=== PATIENT | female | born 1935 | race Caucasian/White ===

== ENCOUNTER → 2016-04-03 | Outpatient (CLI) | payer OTHER, BC ==
[~2016-04-03] VITALS: Ht 165.1 cm; Wt 78.4 kg
[~2016-04-03] MED LIST: ACCUPRIL PO; ACETAMINOPHEN325 M1 PO; ALLOPURINOL 30300 M2 PO; APAP500 PO; ATENOLOL 50 MG50 M1 PO; BENICAR HCT 401 EAC1 PO; BUPIVICAINE; CARDIZEM CD120 MG PO; COMPAZINE5 MG PO; DILAUDID IT; DILAUDID-H10 MG/1 M1; DROPERIDOL; DYAZIDE PO; ELIQUIS5 MG PO; HYDROCHLOROTH12.5 MG PO; HYDROCODONE-AP1 EAC6 PO; INTRATHECAL MED; LANOXIN 0.120.125 M1 PO; LASIX 40 MG TAB40 M1 PO; LASIX 40 MG TAB40 M2 PO; LASIX 80 MG TAB80 MG PO; LEVOTHYROXIN0.112 M1 PO; LIMBREL 500 MG500 MG PO; METOPROLOL SUCC50 MG PO; OMEPRAZOLE20 M2 PO; ONDANSETRON HCL4 M2 PO; ONDANSETRON HCL8 M2 PO; PACERONE 200 M200 M1 PO; POTASSIUM20 PO; PRADAXA150 MG PO; PREDNISONE 1 MG1 M1 PO; PREDNISONE 20 M20 M1 PO; PROPRANOLOL 20M20 M1 PO; PROPRANOLOL PO; PROTONIX 20 MG20 M1 PO; PROTONIX40 M2 PO; PROZAC 20 MG20 M1 PO; PROZAC 20 MG20 MG PO; RITALIN5 MG PO; SAVAYSA30 MG PO; SYNTHROID100 MCG PO; TIROSINT88 MCG PO; TRAMADOL 50 MG50 MG PO; UNICOMPLEX M TA1 TA1 PO; VITAMIN D 5050000 I1; VITAMIN D-32000 UNIT PO; VITAMIN D1000 UNI1 PO; VOLTAREN GEL 1100 G1 TOP; VOLTAREN GEL 1100 G2 TOP; XANAX 0.25 MG0.25 MG PO; XARELTO20 MG PO; XOPENEX HF1 UDINHALE IH; ZOFRAN8 MG PO
--- NOTE | ~2016-04-03 | HPC ---
[facility] [place] [address] [place] [address] PAIN MANAGEMENT CONSULTATION Name: RICHIE SANCHEZBETH Room #: REG EZEKIEL Elizabeth#: [id number] Admission: 04/03/16 Attend Phys: Russell Bartholomew MD Discharge: Date of : 33 Report #: [id number] THIS REPORT FOR: //name// CC: Regis Bartholomew DATE OF SERVICE: 04/03/2016 Followup visit for management of intrathecal pump for osteoarthritis of the low back, spondylosis, spinal stenosis with radiculopathy and complaints of osteoarthritis and pain in the right shoulder. The patient is here today for refill of intrathecal infusion pump and is requesting another injection of her shoulder, which has been helpful in the past. She reports that her primary pain generator remains her low back, but the shoulders become a quick second. She scores her pain as a 6/10. Pain in the low back is constant, deep and aching, generally worsened by movement. Pain in the right shoulder is exacerbated by all maneuvers, including internal and external rotation. Pain has been alleviated by her pain pump and she is pleased currently with her infusion. She has been unable to tolerate breakthrough medication, other than Tylenol. We briefly discussed the possible trial of tramadol. I even wrote a prescription, but decided against giving it to her because of her use of antidepressant. Serotonin syndrome is a concern. PHYSICAL EXAMINATION: GENERAL: Her affect is jules. Pleasant female. Does not appear depressed or anxious. VITAL SIGNS: Blood pressure 116/74, heart rate 82. BMI is 28.8. NEUROLOGIC: She is able to move independently from sitting to standing position, but complains of vertigo. This is worsened with head movements. She walks with a walker and is a bit unstable. I would call her a fall risk and she has been falling within the last 30 days. She has a bruise underneath her chin. CHEST: Clear. CARDIAC: Rhythm is regular. EXTREMITIES: Examination of the shoulder reveals pain with abduction and internal and external rotation on the right. Localized tenderness without swelling. BACK: Examination of the low back reveals tenderness across the lumbosacral segment. IMPRESSION: 1. Chronic low back pain, status post laminectomy, post-laminectomy syndrome with spinal stenosis and radiculopathy, mild. 2. Osteoarthritis, right shoulder. 3. Vertigo, severe with recent falls. 4. Management of intrathecal infusion pump with refill today. [facility] [address] [place] [address] PAIN MANAGEMENT CONSULTATION Name: RICHIE SANCHEZZABETH [facility] [id number] Admission: 04/03/16 Attend Phys: Russell Bartholomew MD Discharge: Date of : 34 Report #: [id number] 5. Blood thinner for atrial fibrillation. PROCEDURES: Refill of intrathecal infusion pump and injection of right shoulder. PROCEDURE #1: Skin was prepped with ChloraPrep. Skin anesthetized and a 22-gauge non-coring needle advanced in the pump. Old medication removed and discarded. Dose expected and retrieved was equivalent. Pump was refilled with a combination of 4 medications; hydromorphone, bupivacaine, clonidine and droperidol. This has been a long-standing combination which has worked well. Medications were checked and reprogramming session was performed, but no changes. She does not have a PTM device. She tolerated the procedure well. Programming information double checked and she was given a copy to take home. PROCEDURE #2: Injection of the right shoulder. Skin was prepped with ChloraPrep. Skin anesthetized and a 25-gauge needle gently advanced in the shoulder capsule. After negative aspiration, I injected 4 mL of 0.5% bupivacaine mixed with 40 mg of triamcinolone. She tolerated the procedure well, was observed for 30 minutes and discharged. There were no complications with either procedure. Followup visit planned for pump refill in 60 and 90 days. <ELECTRONICALLY SIGNED> By: Russell Bartholomew MD 05/04/16 1130 1219 1250 Russell Bartholomew MD /nt
[2016-04-03 11:14] VITALS: BP 116/74
== END | disposition home or self-care (01) ==
LOC: PAIN 04-01 06:48
DX: M48.06 Spinal stenosis, lumbar region (principal); M54.16 Radiculopathy, lumbar region; G89.29 Other chronic pain; M96.1 Postlaminectomy syndrome, not elsewhere classified; M19.011 Primary osteoarthritis, right shoulder; R42 Dizziness and giddiness; Z98.890 Other specified postprocedural states

== ENCOUNTER → 2016-04-10 | Outpatient (CLI) | payer OTHER, BC | LOC: NUC 08:15 | DX: R11.0 Nausea (principal) ==

== ENCOUNTER → 2016-07-25 | Outpatient (CLI) | payer OTHER, BC ==
[~2016-07-25] VITALS: Ht 152.4 cm; Wt 74.4 kg
[~2016-07-25] MED LIST changes: +ACYCLOVIR 400400 MG PO; +FAMCYCLOVIR 50500 M1 PO
--- NOTE | ~2016-07-25 | HPC ---
[facility] [place] [address] PAIN MANAGEMENT CONSULTATION Name: RICHIE SANCHEZBETH Room #: REG [facility] Elizabeth#: [id number] Admission: 07/25/16 Attend Phys: Russell Bartholomew MD Discharge: Date of : 34 Report #: [id number] THIS REPORT FOR: //name// CC: Regis Bartholomew DATE OF REGISTRATION: 07/25/2016. Followup visit for chronic low back pain, post-laminectomy syndrome. The patient is here today for refill of her intrathecal infusion pump. She reports that with her medications currently provided, her pain score is a 5/10. She has some pain in her low back and still complains about some pain around her intrathecal pump. Pain is intermittent for the most part. The patient has been sleeping well. Appetite is good. She and her still live independently in her own home. Since the last visit, she was hospitalized for pneumonia and gout. She was placed on a CPAP machine for a bit. She found that she could not tolerate it. PHYSICAL EXAMINATION: She is in a wheelchair. Blood pressure is 96/61, heart rate is 85. BMI is 32.0. She is able to move from a sitting to standing position, but it is difficult for her to move even short distances and she is a fall risk. Her shoulder bilaterally are tender with internal and external rotation primarily in the right, back is tender as well. She has an intrathecal pump located in the right lower abdominal quadrant. IMPRESSION: 1. Chronic intractable back pain status post laminectomy, post-laminectomy syndrome with radiculopathy secondary to spinal stenosis. 2. Osteoarthritis, right shoulder. 3. Management of intrathecal infusion pump with refill today. 4. Atrial fibrillation, on anticoagulation therapy. PROCEDURE: Refill of intrathecal infusion pump. Skin was prepped with ChloraPrep. Skin was anesthetized and a 22-gauge non-coring needle advanced in the pump. Old medication removed and discarded. Pump was refilled with a combination of hydromorphone, clonidine, droperidol and bupivacaine. A reprogramming session was performed and a copy of the information was provided to the patient. She is on 3.9 mg of Dilaudid, 3.1 mg of bupivacaine, 19 mcg of clonidine and 1.9 mcg of droperidol per day. [address] [address] PAIN MANAGEMENT CONSULTATION Name: RICHIE SANCHEZ Room #: REG Cl Johnson#: [id number] Admission: 07/25/16 Attend Phys: Russell Bartholomew MD Discharge: Date of : 34 Report #: [id number] Follow up is planned in 3 months. By: 1338 2041 Russell Bartholomew MD /nt
[2016-07-25 13:35] VITALS: BP 96/61
== END | disposition home or self-care (01) ==
LOC: PAIN 07:29
DX: M48.06 Spinal stenosis, lumbar region (principal); M96.1 Postlaminectomy syndrome, not elsewhere classified; M19.011 Primary osteoarthritis, right shoulder; I48.91 Unspecified atrial fibrillation; G89.29 Other chronic pain; Z98.890 Other specified postprocedural states

== ENCOUNTER → 2016-08-15 | Outpatient (CLI) | payer OTHER, BC ==
[~2016-08-15] VITALS: Ht 162.6 cm; Wt 74.8 kg
[~2016-08-15] MED LIST changes: +NEURONTIN 300300 M1 PO
--- NOTE | ~2016-08-15 | HPC ---
[facility] [place] [address] [place] [address] PAIN MANAGEMENT CONSULTATION Name: RICHIE SANCHEZ Room #: REG [facility] Cata.#: [id number] Admission: 08/15/16 Attend Phys: Russell Bartholomew MD Discharge: Date of : 34 Report #: [id number] THIS REPORT FOR: //name// CC: Regis Bartholomew DATE OF SERVICE: 08/15/2016 Followup visit for postherpetic neuralgia, chronic back pain with radiculopathy and osteoarthritis. The patient returns to pain clinic today and complains that the pain in her chest wall has worsened since I last saw her. She was diagnosed with acute shingles. There was a bit of a variant in that she did not have actual break out of vesicular rash, but clearly there was a unilateral dermatomal distribution of a diffuse rash along the right side, which is now her primary complaint. Pain is as high as 6-10 at night. She also has all of her other ongoing chronic aches and pains including post-laminectomy syndrome, osteoarthritis. She is receiving intrathecal infusion pump, which has helped with most of that. It is just not covering this neuropathic pain along her side despite bupivacaine, clonidine, hydromorphone and droperidol. She was on anticoagulation therapy for atrial fibrillation, but has discontinued it 5 days ago in anticipation of an injection. We plan to perform a thoracic epidural injection. PHYSICAL EXAMINATION: Her blood pressure is 96/45, heart rate is 96. She is able to move from sitting to standing position and ambulate without difficulty. She has orthostatic changes despite a low blood pressure. She has pain across her low back. Her pump is in her abdomen. She has tenderness along with scarring on her right side that follows a T10 through T12 distribution. Pain in the right shoulder is noted with internal and external rotation. On auscultation, her lungs are clear, but she is in atrial fibrillation with an irregularly irregular rhythm. IMPRESSION: 1. Chronic back pain, post-laminectomy. 2. Osteoarthritis. 3. Intrathecal infusion pump with reprogramming session today. I did not refill it, but dropped by 10% because of the clonidine and her low blood pressure. 4. Atrial fibrillation. 5. Postherpetic neuralgia. PROCEDURE: Thoracic epidural injection. [address] [address] PAIN MANAGEMENT CONSULTATION Name: RICHIE SANCHEZ Room #: REG [facility] Elizabeth#: [id number] Admission: 08/15/16 Attend Phys: Russell Bartholomew MD Discharge: Date of : 34 Report #: [id number] She was taken to fluoroscopic suite, she was placed prone, skin prepped with ChloraPrep. Skin anesthetized over T28 . A 20-gauge Tuohy epidural needle advanced into the epidural space at that level using biplanar fluoroscopic views. There was no blood or CSF aspirated. I then injected a total of 5 mL of 0.5% lidocaine mixed with 40 mg of triamcinolone. She tolerated the procedure well. Pain was reduced at discharge and she had numbness in the dermatomal distribution. Followup visit is planned as needed for pump refill. I did reduce her pump by 10% with a reprogramming session. By: 1654 0211 Russell Bartholomew MD /nt
[2016-08-15 10:00] VITALS: BP 85/45
== END | disposition home or self-care (01) ==
LOC: PAIN 06:59
DX: M54.14 Radiculopathy, thoracic region (principal); B02.29 Other postherpetic nervous system involvement; M19.90 Unspecified osteoarthritis, unspecified site; M96.1 Postlaminectomy syndrome, not elsewhere classified; I48.91 Unspecified atrial fibrillation

== ENCOUNTER → 2016-11-18 | Outpatient (CLI) | payer OTHER, BC ==
[~2016-11-18] VITALS: Ht 162.6 cm; Wt 78.4 kg
[~2016-11-18] MED LIST changes: +ULTRAM 50MG TAB50 MG PO
--- NOTE | ~2016-11-18 | HPC ---
[facility] [address] [address] PAIN MANAGEMENT CONSULTATION Name: RICHIE SANCHEZBETH Room #: REG Cl Johnson#: [id number] Admission: 11/18/16 Attend Phys: Russell Bartholomew MD Discharge: Date of : 34 Report #: [id number] THIS REPORT FOR: //name// CC: Regis Bartholomew DATE OF SERVICE: 11/18/2016 Followup visit for bilateral osteoarthritis of the shoulder, chronic back pain with radiculopathy and management of intrathecal infusion pump. The patient returns to pain clinic today for management of several pains. She complains of chronic back pain following her laminectomy. She has osteoarthritis involving many joints. She also has bilateral shoulder pain and suffered from a rash in the thoracic distribution, which was shingles. She was started early on antiviral therapy and now does not complain much of postherpetic neuralgia gratefully. She would like her pump refilled and adjusted today. I have agreed to do so and I have also agreed to provide her with bilateral shoulder injections, which have been helpful in the past. Her pain score today is an 8/10. She complains of pain in all locations described above. Her back pain is worse with all activities, particularly walking. She reports that she gets relief from her pain pump, sitting and resting and elevating her feet. She has had some new and increasing edema. She is on anticoagulation therapy for atrial fibrillation. PHYSICAL EXAMINATION: GENERAL: She is pleasant, elderly female. VITAL SIGNS: Blood pressure is 103/70, heart rate 85. NECK: Supple. She has some plaques that look like psoriasis posteriorly. CHEST: Clear. CARDIAC: Rhythm is irregularly irregular. ABDOMEN: Soft. Pump is in the right lower quadrant. EXTREMITIES: Some pain with straight leg raising of the leg and pain with internal and external rotation of the hip. Examination of the shoulders reveals bilateral pain and discomfort with internal and external rotation. IMPRESSION: 1. Chronic back pain, post-laminectomy. 2. Osteoarthritis, bilateral shoulders, hips and knees. 3. Atrial fibrillation. 4. History of recent shingles outbreak. 5. Reprogramming session of intrathecal infusion pump followed by bilateral shoulder injections. [facility] [address] [place] [address] PAIN MANAGEMENT CONSULTATION Name: RICHIE SANCHEZ JENS Room #: REG [facility] Elizabeth#: [id number] Admission: 11/18/16 Attend Phys: Russell Bartholomew MD Discharge: Date of : 34 Report #: [id number] PROCEDURE: Skin was prepped with ChloraPrep. Skin anesthetized and a 22-gauge non-coring needle advanced in the intrathecal pump. Old medication removed and discarded. Reprogramming session was performed increasing the pump by 11%, daily dose will now be hydromorphone 4 mg, bupivacaine 3.2 mg, clonidine 20 mcg and droperidol 1.9 mcg per day. INJECTION PROCEDURE: Bilateral shoulder injection. Skin was prepped first on the right. Posterior approach was used. I used 27-gauge needle, ____ given her anticoagulation state. I advanced the needle gently into the acromion process into the shoulder joint. After negative aspiration, I injected a total of 4 mL of 0.5% bupivacaine mixed with 40 mg of triamcinolone. Needle was removed. We then moved to the left where we performed a mirror image injection of the left shoulder. She tolerated the procedure well and left the clinic reporting that her shoulders felt great. A followup visit is scheduled in 3 months for refill. By: [id number] [id number] Russell Bartholomew MD /nt
[2016-11-18 13:58] VITALS: BP 103/70
== END | disposition home or self-care (01) ==
LOC: PAIN 07:12
DX: M19.011 Primary osteoarthritis, right shoulder (principal); M19.012 Primary osteoarthritis, left shoulder; M54.5 Low back pain; G89.29 Other chronic pain; M17.0 Bilateral primary osteoarthritis of knee; M16.0 Bilateral primary osteoarthritis of hip; I48.91 Unspecified atrial fibrillation; Z79.01 Long term (current) use of anticoagulants; Z88.0 Allergy status to penicillin; Z98.890 Other specified postprocedural states; Z79.899 Other long term (current) drug therapy

== ENCOUNTER → 2016-12-18 | Outpatient (CLI) | payer OTHER, BC | LOC: RAD 01:37 | DX: Z12.31 Encounter for screening mammogram for malignant neoplasm of breast (principal) ==

== ENCOUNTER → 2017-01-02 | Outpatient (CLI) | payer OTHER, BC | LOC: SLEEPLAB 03:38 | DX: G47.33 Obstructive sleep apnea (adult) (pediatric) (principal) ==

== ENCOUNTER 2017-04-22 05:15 | Day surgery (SDC) | payer OTHER, BC ==
[~2017-04-22] VITALS: Ht 152.4 cm; Wt 79.8 kg
--- NOTE | ~2017-04-22 | S ---
[facility] [place] [address] [address] SURGICAL PATH RPT PROCEDURE Name: RICHIE SANCHEZ Room #: [facility]..#: [id number] Admission: 04/22/17 Date of : 33 Discharge: 04/22/17 Report #: [id number] Path Case #: [id number] PATHOLOGY REPORT COLLECTION DATE: 04/22/2017 RECEIVED DATE: 04/22/2017 SUBMITTING PHYS: Dr. Landon Leon OTHER PHYS: Dr. Regis Wells SPECIMEN(S) RECEIVED: A.2nd right toe * * * * * * * * * * * * FINAL DIAGNOSIS: Toe, right second toe, resection: - Ulceration along with marked acute inflammation as well as granulation tissue present focally. Clinical history of hammertoe. - Underlying bone uninvolved by acute inflammation. - Margins of resection with unremarkable skin and bone. (IUV:mml; 04/25/2017) PATHOLOGIST: Jane Ko M.D. REPORT ELECTRONICALLY SIGNED BY: Jane Ko M.D. DATE/TIME: 04/25/2017 12:12 * * * * * * * * * * * * GROSS PATHOLOGY: The specimen is received in formalin, labeled "Richie Sanchez, right second toe". Received is an amputated digit measuring 3.6 x 1.8 x 1.5 cm in greatest dimensions. The bone margin is jagged in appearance. The bone and soft tissue margins are inked black. The nail is present displaying a light hercules and thickened appearance. The epidermal surface displays a well-circumscribed, depressed, and red-hercules lesion measuring 0.7 x 0.6 cm, which is 0.2 cm from the skin margin. A full-thickness longitudinal cross-section is submitted in cassettes A1 and A2, from proximal to distal aspects, following decalcification. (CAA; 04/24/2017) CLINICAL HISTORY: Right second toe hammertoe INITIAL CPT CODE(S): A; 84676, 00073 [facility] at [address] [address] SURGICAL PATH RPT PROCEDURE Name: RICHIE SANCHEZ Room #: [facility] M.R.#: [id number] Admission: 04/22/17 Date of : 34 Discharge: 04/22/17 Report #: [id number] Path Case #: [id number] [address] [place] [address] Technical services performed by [employer] at [address] [place] [address], [facility] [address] [address]. [facility] [address] [address] PHONE: [phone] DIRECTOR: Renny Callahan M.D. * * * END OF REPORT * * *
--- NOTE | ~2017-04-22 | O ---
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 POSTOPERATIVE DIAGNOSIS: Right foot second hammer toe deformity with nonhealing wound. PROCEDURE: Right foot second toe amputation. SURGEON: Landon Leon M.D. ANESTHESIA: Local. FOREIGN CAR MECHANIC: Thi Fuentes PA-C ESTIMATED BLOOD LOSS: Minimal. DRAINS: None. TOURNIQUETS: None. COMPLICATIONS: None. DESCRIPTION OF PROCEDURE: The patient brought to the operating room where her right lower extremity was prepped and draped in a sterile manner. A 30 mL of 0.5% Marcaine was insufflated about the second metatarsal to anesthetize the digital nerves. This was allowed to set and then subsequently a fishmouth incision was made about the proximal phalanx of the second toe. A Romeo elevator was then utilized to elevate the soft tissue off of the toe and a toe cutter was then utilized to transect the proximal phalanx of the second toe. The toe was then removed. The wound was irrigated copiously and closed with 3-0 nylon for the skin. The wound was dressed with Xeroform, 4 x 4s, and a sterile soft compressive dressing was placed. There were no tourniquets. There were no complications. The patient was taken to the recovery room without incident. <ELECTRONICALLY SIGNED> By: Landon Leon MD 05/07/17 1028 1229 1309 Landon Leon MD /nt
[~2017-04-22 05:15] MED LIST changes: -ALLOPURINOL 30300 M2 PO; -APAP500 PO; +KLOR-CON 1010 MEQ PO; +TYLENOL EXTRA500 MG PO; +ZYLOPRIM300 MG PO
[2017-04-22 11:12] VITALS: BP 105/71
[2017-04-22 11:41] LABS: CALCIUM 9.5 mg/dL (8.5-10.1); CREATININE 1.8 mg/dL (0.6-1.0); POTASSIUM 4.3 mmol/L (3.5-5.1)
[2017-04-22] MEDS ORDERED: PERCOCET 7.5-31 EACH PO (12:23)
[2017-04-22 12:53] VITALS: BP 105/71
[2017-06-12] MEDS ORDERED: ONDANSETRON HCL4 M2 PO (15:36)
[2017-06-12] MEDS ORDERED: INDERAL 20 MG T20 M1 PO (15:54)
[2017-12-22] MEDS ORDERED: LOPRESSOR50 PO (11:08)
[2018-01-08] MEDS ORDERED: DIGOXIN125 MCG PO (08:56)
[2018-01-08] MEDS ORDERED: ALLOPURINOL 30300 M1 PO (08:59)
[2018-01-08] MEDS ORDERED: IRON325 PO (08:59)
== END 2017-04-22 13:55 | disposition home or self-care (01) ==
LOC: OR 05:15 → TBA 05:16 → OR 08:58
PROVIDERS: Orthopaedic Surgery Foot and Ankle Surgery
DX: L97.919 Non-pressure chronic ulcer of unspecified part of right lower leg with unspecified severity (principal); M20.41 Other hammer toe(s) (acquired), right foot; I10 Essential (primary) hypertension; I48.91 Unspecified atrial fibrillation; E78.5 Hyperlipidemia, unspecified; G47.33 Obstructive sleep apnea (adult) (pediatric); F32.89 Other specified depressive episodes; K21.9 Gastro-esophageal reflux disease without esophagitis; E03.9 Hypothyroidism, unspecified; F41.8 Other specified anxiety disorders; Z96.653 Presence of artificial knee joint, bilateral; Z88.0 Allergy status to penicillin; Z98.41 Cataract extraction status, right eye; Z98.42 Cataract extraction status, left eye; Z98.890 Other specified postprocedural states; Z79.899 Other long term (current) drug therapy; Z79.891 Long term (current) use of opiate analgesic
CPT/HCPCS: 50010; 50101; 50386; 56527; 57091; 70005

== ENCOUNTER → 2017-05-15 | Outpatient (CLI) | payer OTHER, BC ==
[~2017-05-15] MED LIST changes: +ALLOPURINOL 30300 M1 PO; +DIGOXIN125 MCG PO; +DUONEB 2.5-0.5 M3 ML INH; +EPOGEN20000 UNI2 SUBQ; +HYDROCODON-ACE1 EAC7 PO; +INDERAL 20 MG T20 M1 PO; +IRON325 PO; +LOPRESSOR50 PO; +MAGOX 400400 MG PO; +METOPROLOL TART25 MG PO; +PERCOCET 7.5-31 EACH PO
== END ==
LOC: HYPER 05-14 09:21
DX: T81.89XD Other complications of procedures, not elsewhere classified, subsequent encounter (principal); E11.621 Type 2 diabetes mellitus with foot ulcer; I87.2 Venous insufficiency (chronic) (peripheral); L97.511 Non-pressure chronic ulcer of other part of right foot limited to breakdown of skin; E11.51 Type 2 diabetes mellitus with diabetic peripheral angiopathy without gangrene; E66.9 Obesity, unspecified; Z68.33 Body mass index [BMI] 33.0-33.9, adult; E11.22 Type 2 diabetes mellitus with diabetic chronic kidney disease; I12.9 Hypertensive chronic kidney disease with stage 1 through stage 4 chronic kidney disease, or unspecified chronic kidney disease; N18.3 Chronic kidney disease, stage 3 (moderate); I48.91 Unspecified atrial fibrillation; E03.9 Hypothyroidism, unspecified; E11.42 Type 2 diabetes mellitus with diabetic polyneuropathy; Z85.3 Personal history of malignant neoplasm of breast; Z89.422 Acquired absence of other left toe(s); Z89.421 Acquired absence of other right toe(s); Z72.89 Other problems related to lifestyle; Y83.8 Other surgical procedures as the cause of abnormal reaction of the patient, or of later complication, without mention of misadventure at the time of the procedure

== ENCOUNTER → 2017-05-26 | Outpatient (CLI) | payer OTHER, BC | LOC: HYPER 07:14 | DX: T81.89XD Other complications of procedures, not elsewhere classified, subsequent encounter (principal); E11.621 Type 2 diabetes mellitus with foot ulcer; I87.2 Venous insufficiency (chronic) (peripheral); L97.511 Non-pressure chronic ulcer of other part of right foot limited to breakdown of skin; E11.51 Type 2 diabetes mellitus with diabetic peripheral angiopathy without gangrene; J44.9 Chronic obstructive pulmonary disease, unspecified; E66.9 Obesity, unspecified; Z68.33 Body mass index [BMI] 33.0-33.9, adult; E11.22 Type 2 diabetes mellitus with diabetic chronic kidney disease; I12.9 Hypertensive chronic kidney disease with stage 1 through stage 4 chronic kidney disease, or unspecified chronic kidney disease; N18.3 Chronic kidney disease, stage 3 (moderate); I48.91 Unspecified atrial fibrillation; M81.0 Age-related osteoporosis without current pathological fracture; E03.9 Hypothyroidism, unspecified; E11.42 Type 2 diabetes mellitus with diabetic polyneuropathy; Z85.3 Personal history of malignant neoplasm of breast; Z72.89 Other problems related to lifestyle; Y83.8 Other surgical procedures as the cause of abnormal reaction of the patient, or of later complication, without mention of misadventure at the time of the procedure ==

== ENCOUNTER → 2017-06-05 | Outpatient (CLI) | payer OTHER, BC | LOC: HYPER 06:59 | DX: E11.621 Type 2 diabetes mellitus with foot ulcer (principal); L97.511 Non-pressure chronic ulcer of other part of right foot limited to breakdown of skin; I87.2 Venous insufficiency (chronic) (peripheral); E11.51 Type 2 diabetes mellitus with diabetic peripheral angiopathy without gangrene; E66.9 Obesity, unspecified; Z68.33 Body mass index [BMI] 33.0-33.9, adult; M80.0 Age-related osteoporosis with current pathological fracture; J44.9 Chronic obstructive pulmonary disease, unspecified; E11.22 Type 2 diabetes mellitus with diabetic chronic kidney disease; N18.3 Chronic kidney disease, stage 3 (moderate); I48.91 Unspecified atrial fibrillation; I10 Essential (primary) hypertension; E03.9 Hypothyroidism, unspecified; E11.42 Type 2 diabetes mellitus with diabetic polyneuropathy; Z85.3 Personal history of malignant neoplasm of breast; Z72.89 Other problems related to lifestyle ==

== ENCOUNTER → 2017-06-19 | Outpatient (CLI) | payer OTHER, BC | LOC: HYPER 07:22 | DX: E11.621 Type 2 diabetes mellitus with foot ulcer (principal); L97.511 Non-pressure chronic ulcer of other part of right foot limited to breakdown of skin; E11.622 Type 2 diabetes mellitus with other skin ulcer; L97.811 Non-pressure chronic ulcer of other part of right lower leg limited to breakdown of skin; I87.2 Venous insufficiency (chronic) (peripheral); E11.51 Type 2 diabetes mellitus with diabetic peripheral angiopathy without gangrene; E66.9 Obesity, unspecified; Z68.33 Body mass index [BMI] 33.0-33.9, adult; J44.9 Chronic obstructive pulmonary disease, unspecified; E11.22 Type 2 diabetes mellitus with diabetic chronic kidney disease; I12.9 Hypertensive chronic kidney disease with stage 1 through stage 4 chronic kidney disease, or unspecified chronic kidney disease; N18.3 Chronic kidney disease, stage 3 (moderate); I48.91 Unspecified atrial fibrillation; E03.9 Hypothyroidism, unspecified; E11.42 Type 2 diabetes mellitus with diabetic polyneuropathy; Z85.3 Personal history of malignant neoplasm of breast ==

== ENCOUNTER → 2017-07-03 | Outpatient (CLI) | payer OTHER, BC ==
[~2017-07-03] MED LIST changes: -ALLOPURINOL 30300 M1 PO; -DIGOXIN125 MCG PO; -DUONEB 2.5-0.5 M3 ML INH; -EPOGEN20000 UNI2 SUBQ; -HYDROCODON-ACE1 EAC7 PO; -IRON325 PO; -LOPRESSOR50 PO; -MAGOX 400400 MG PO; -METOPROLOL TART25 MG PO
== END ==
LOC: HYPER 06:55
DX: E11.621 Type 2 diabetes mellitus with foot ulcer (principal); L97.811 Non-pressure chronic ulcer of other part of right lower leg limited to breakdown of skin; E11.51 Type 2 diabetes mellitus with diabetic peripheral angiopathy without gangrene; I87.2 Venous insufficiency (chronic) (peripheral); E11.22 Type 2 diabetes mellitus with diabetic chronic kidney disease; I12.9 Hypertensive chronic kidney disease with stage 1 through stage 4 chronic kidney disease, or unspecified chronic kidney disease; N18.3 Chronic kidney disease, stage 3 (moderate); E11.42 Type 2 diabetes mellitus with diabetic polyneuropathy; E66.9 Obesity, unspecified; I48.91 Unspecified atrial fibrillation; E03.9 Hypothyroidism, unspecified; M81.0 Age-related osteoporosis without current pathological fracture; G47.30 Sleep apnea, unspecified; J44.9 Chronic obstructive pulmonary disease, unspecified; Z85.3 Personal history of malignant neoplasm of breast; Z96.653 Presence of artificial knee joint, bilateral

== ENCOUNTER → 2017-07-17 | Outpatient (CLI) | payer OTHER, BC | LOC: HYPER 06:44 | DX: E11.621 Type 2 diabetes mellitus with foot ulcer (principal); L97.511 Non-pressure chronic ulcer of other part of right foot limited to breakdown of skin; E11.622 Type 2 diabetes mellitus with other skin ulcer; L97.811 Non-pressure chronic ulcer of other part of right lower leg limited to breakdown of skin; E11.51 Type 2 diabetes mellitus with diabetic peripheral angiopathy without gangrene; E11.42 Type 2 diabetes mellitus with diabetic polyneuropathy; E11.22 Type 2 diabetes mellitus with diabetic chronic kidney disease; I12.9 Hypertensive chronic kidney disease with stage 1 through stage 4 chronic kidney disease, or unspecified chronic kidney disease; N18.3 Chronic kidney disease, stage 3 (moderate); I87.2 Venous insufficiency (chronic) (peripheral); L84 Corns and callosities; E03.9 Hypothyroidism, unspecified; E66.9 Obesity, unspecified; M80.0 Age-related osteoporosis with current pathological fracture; I48.91 Unspecified atrial fibrillation; G47.30 Sleep apnea, unspecified; J44.9 Chronic obstructive pulmonary disease, unspecified; Z85.3 Personal history of malignant neoplasm of breast; Z96.653 Presence of artificial knee joint, bilateral; Z89.422 Acquired absence of other left toe(s); Z68.33 Body mass index [BMI] 33.0-33.9, adult; Z89.421 Acquired absence of other right toe(s) ==

== ENCOUNTER → 2017-07-30 | Outpatient (CLI) | payer OTHER, BC | LOC: HYPER 06:51 | DX: E11.621 Type 2 diabetes mellitus with foot ulcer (principal); L97.511 Non-pressure chronic ulcer of other part of right foot limited to breakdown of skin; I87.2 Venous insufficiency (chronic) (peripheral); E11.51 Type 2 diabetes mellitus with diabetic peripheral angiopathy without gangrene; J44.9 Chronic obstructive pulmonary disease, unspecified; E11.22 Type 2 diabetes mellitus with diabetic chronic kidney disease; I12.9 Hypertensive chronic kidney disease with stage 1 through stage 4 chronic kidney disease, or unspecified chronic kidney disease; N18.3 Chronic kidney disease, stage 3 (moderate); I48.91 Unspecified atrial fibrillation; E03.9 Hypothyroidism, unspecified; E11.42 Type 2 diabetes mellitus with diabetic polyneuropathy; E66.9 Obesity, unspecified; Z68.33 Body mass index [BMI] 33.0-33.9, adult; Z85.3 Personal history of malignant neoplasm of breast; Z89.421 Acquired absence of other right toe(s) ==

== ENCOUNTER 2017-08-20 14:56 | Emergency (ER) | payer OTHER, BC ==
[~2017-08-20] VITALS: Ht 152.4 cm; Wt 77.1 kg
--- NOTE | ~2017-08-20 | EKG ---
[address] [address] ELECTROCARDIOGRAM REPORT Name: LAURARICHIE JENS Room #: [facility] [id number] Admission: 08/20/17 Attend Phys: Discharge: 08/20/17 Date of : 34 Report #: [id number] THIS REPORT FOR: //name// [facility] ED Test Date: 2017-08-20 Test Time: 15:14:37 Pat Name: RICHIE SANCHEZ Department: Room: Gender: F Combat Control Manager: WG : 1935 Requested By: Brett Fajardo Order Number: [id number] MD: Christiano Landers Measurements Intervals [place] Rate: 98 P: MD: QRS: 91 QRSD: 94 T: 6 QT: 339 QTc: 433 Interpretive Statements Atrial fibrillation Right axis deviation Compared to ECG 07/18/2006 10:51:38 Atrial fibrillation is now present Electronically Signed On 08-21-2017 8:20:54 CDT by Christiano Landers [email or web address] <ELECTRONICALLY SIGNED> By: Christiano Landers MD, [facility] 08/21/17 0820 1514 1514 Christiano Landers MD, FACC /EPI
[2017-08-20] MEDS ORDERED: EPOGEN20000 UNI2 SUBQ (15:15)
[2017-08-20] MEDS ORDERED: HYDROCODON-ACE1 EAC7 PO (15:16)
[2017-08-20] MEDS ORDERED: DUONEB 2.5-0.5 M3 ML INH (15:20)
[2017-08-20] MEDS ORDERED: MAGOX 400400 MG PO (15:20)
[2017-08-20 15:37] LABS: ABSOLUTE NEUTROPHILS 11.7 thou/uL (1.4-8.2); BASOPHILS 0.5 % (0.0-2.0); HEMATOCRIT 35.6 % (37.0-47.0); LYMPHOCYTES 10.1 % (24.0-44.0); MCH 26.2 pg (26.0-34.0); MCV 84.5 fL (80.0-100.0); MONOCYTES 7.8 % (1.0-8.0); PLATELET COUNT 446 thou/uL (150-400); POLYS 78.6 % (36.0-66.0); RBC 4.21 mil/uL (4.20-5.00); RDW 18.4 % (10.5-14.5); WBC 14.9 thou/uL (4.0-11.0)
[2017-08-20 15:47] LABS: ANION GAP 3 mmol/L (7-16); BUN 28 mg/dL (7-18); CALCIUM 9.2 mg/dL (8.5-10.1); CHLORIDE 99 mmol/L (98-107); CO2 35 mmol/L (21-32); CREATININE 1.4 mg/dL (0.6-1.0); GLUCOSE 139 mg/dL (74-106); POTASSIUM 4.3 mmol/L (3.5-5.1); SODIUM 137 mmol/L (136-145)
[2017-08-20 15:55] LABS: ALBUMIN 2.5 g/dL (3.4-5.0); MAGNESIUM 1.5 mg/dL (1.8-2.4); SGOT 23 U/L (15-37); SGPT 7 U/L (30-65); TOTAL BILIRUBIN 0.7 mg/dL (<0.1-1.0); TOTAL PROTEIN 6.7 g/dL (6.4-8.2); TROPONIN-I < 0.04 ng/mL (<0.06)
[2017-08-20] MEDS ORDERED: DIGOXIN125 MCG PO (16:33)
[2017-08-20] MEDS ORDERED: METOPROLOL TART25 MG PO (16:33)
== END 2017-08-20 17:38 | disposition home or self-care (01) ==
LOC: ER 14:56
PROVIDERS: Emergency Medicine
DX: I48.91 Unspecified atrial fibrillation (principal); E03.9 Hypothyroidism, unspecified; I10 Essential (primary) hypertension; E78.5 Hyperlipidemia, unspecified; K21.9 Gastro-esophageal reflux disease without esophagitis; F41.9 Anxiety disorder, unspecified; F32.9 Major depressive disorder, single episode, unspecified; Z96.653 Presence of artificial knee joint, bilateral; Z88.0 Allergy status to penicillin

== ENCOUNTER → 2017-10-27 | Outpatient (CLI) | payer OTHER, BC ==
[~2017-10-27] MED LIST changes: +DIGOXIN125 MCG PO; +DUONEB 2.5-0.5 M3 ML INH; +EPOGEN20000 UNI2 SUBQ; +HYDROCODON-ACE1 EAC7 PO; +MAGOX 400400 MG PO; +METOPROLOL TART25 MG PO
== END ==
LOC: HYPER 06:42
DX: E11.621 Type 2 diabetes mellitus with foot ulcer (principal); L97.511 Non-pressure chronic ulcer of other part of right foot limited to breakdown of skin; E11.622 Type 2 diabetes mellitus with other skin ulcer; L97.811 Non-pressure chronic ulcer of other part of right lower leg limited to breakdown of skin; I87.2 Venous insufficiency (chronic) (peripheral); E11.51 Type 2 diabetes mellitus with diabetic peripheral angiopathy without gangrene; E11.22 Type 2 diabetes mellitus with diabetic chronic kidney disease; I12.9 Hypertensive chronic kidney disease with stage 1 through stage 4 chronic kidney disease, or unspecified chronic kidney disease; N18.3 Chronic kidney disease, stage 3 (moderate); E11.42 Type 2 diabetes mellitus with diabetic polyneuropathy; M80.0 Age-related osteoporosis with current pathological fracture; E66.9 Obesity, unspecified; L84 Corns and callosities; E03.9 Hypothyroidism, unspecified; I48.91 Unspecified atrial fibrillation; M10.9 Gout, unspecified; G47.30 Sleep apnea, unspecified; J44.9 Chronic obstructive pulmonary disease, unspecified; F41.9 Anxiety disorder, unspecified; Z96.653 Presence of artificial knee joint, bilateral; Z68.33 Body mass index [BMI] 33.0-33.9, adult; Z85.3 Personal history of malignant neoplasm of breast; Z98.49 Cataract extraction status, unspecified eye; Z89.421 Acquired absence of other right toe(s)

== ENCOUNTER → 2017-12-22 | Outpatient (CLI) | payer OTHER, BC ==
[~2017-12-22] VITALS: Ht 152.4 cm; Wt 68.6 kg
[~2017-12-22] MED LIST changes: +ALLOPURINOL 30300 M1 PO; +IRON325 PO; +LOPRESSOR50 PO
--- NOTE | ~2017-12-22 | HPC ---
[facility] [place] [address] [place] [address] PAIN MANAGEMENT CONSULTATION Name: RICHIE SANCHEZ [facility] [id number] Admission: 12/22/17 Attend Phys: Russell Bartholomew MD Discharge: Date of : 34 Report #: [id number] THIS REPORT FOR: //name// CC: Regis Bartholomew DATE OF SERVICE: 12/22/2017 REASON FOR CONSULTATION: Followup visit for refill reprogramming of intrathecal infusion pump. HISTORY OF PRESENT ILLNESS: The patient returns to pain clinic today for refill of intrathecal infusion pump. Earlier this year, she underwent refill and was found to have excessive sedation in the first hour or two following the refill and may have an escape of about 2.5 mL pump medication or pocket fill. Program error was ruled out. She was observed in the hospital during that event overnight and sent home with no sequelae. Pocket fills do occur and they are infrequent, but we reviewed again the protocol for management of such an event and discussed this with her family. Dr. Regis Wells is aware of this, her primary care physician. Today, no specific changes will be intended for intrathecal pump. She has a combination of bupivacaine, clonidine, droperidol and hydromorphone, which has been working effectively. Pain score is 2. PQRS review is completed today prior to refilling her pump. She has generalized osteoarthritis involving multiple joints. She is just under the level of obesity at 29.5 BMI. PHYSICAL EXAMINATION: VITAL SIGNS: Blood pressure 101/64, heart rate is 86, respirations 20. Pain intensity with her pump currently is 2. She is a fall risk and needs help getting up and down and walking. She has fallen in the last 3 months. She needs to be particularly cautious given the fact that she is on the blood thinner, Savaysa, she has a history of hypertension, which Dr. Wells watches carefully and manages with medication. Risk assessment tool shows that she has some features causing a moderate risk for misuse or abuse of oral medication. She has shown no misuse or abusive behaviors with medication through our clinic and does not take oral opioids. She does not use tobacco, but does drink alcohol socially. IMPRESSION: 1. Chronic low back pain with radiculopathy, post-laminectomy syndrome. 2. Osteoarthritis. [address] [address] PAIN MANAGEMENT CONSULTATION Name: LAURARICHIE Room #: REG [facility].#: [id number] Admission: 12/22/17 Attend Phys: Russell Bartholomew MD Discharge: Date of : 34 Report #: [id number] 3. Management of intrathecal infusion pump. 4. Atrial fibrillation, on blood thinner. 5. Hypertension. PROCEDURE: Refill and reprogramming. I personally performed the refill. The skin was prepped with ChloraPrep. Skin was anesthetized and 22-gauge non-coring needle advanced in the pump. Old medication removed and discarded. Pump was refilled with medication and after some discussion, I did agree to provide her with a slight increase in her pump at 5%. Her discharge will be at a dose of hydromorphone 4.2, bupivacaine 3.3, clonidine 20 mcg and droperidol 2 mcg per day. Her TONY is 37. Her next refill is scheduled for 04/05/2018. She would like an epidural steroid injection. We will see how she does with a slight refill and bring her back in the next week or two for an injection, which has provided some relief for her for several months at a time in the past. By: 1741 0757 Russell Bartholomew MD /nt
[2017-12-22 10:52] VITALS: BP 101/64
== END | disposition home or self-care (01) ==
LOC: PAIN 07:36
DX: Z45.1 Encounter for adjustment and management of infusion pump (principal); M54.16 Radiculopathy, lumbar region; G89.29 Other chronic pain; M96.1 Postlaminectomy syndrome, not elsewhere classified; M19.90 Unspecified osteoarthritis, unspecified site; I48.91 Unspecified atrial fibrillation; I10 Essential (primary) hypertension; Z79.01 Long term (current) use of anticoagulants; Z79.899 Other long term (current) drug therapy; Z98.890 Other specified postprocedural states; Z79.891 Long term (current) use of opiate analgesic

== ENCOUNTER → 2018-01-08 | Outpatient (CLI) | payer OTHER, BC ==
[~2018-01-08] VITALS: Ht 160 cm; Wt 67.6 kg
--- NOTE | ~2018-01-08 | HPC ---
[facility] [place] [address] [place] [address] PAIN MANAGEMENT CONSULTATION Name: RICHIE SANCHEZ [facility] [id number] Admission: 01/08/18 Attend Phys: Russell Bartholomew MD Discharge: Date of : 33 Report #: [id number] THIS REPORT FOR: //name// CC: Regis Bartholomew DATE OF SERVICE: 01/08/2018 Followup visit for chronic back pain. The patient is here today in the pain clinic for an epidural injection. We have elected to try an epidural for her flank pain which radiates in a band-like pattern from her L1-L2 region around the ribcage and into the upper hip. She is already on a fairly complex polypharmacy intrathecal regimen, which we have maximized at best relief. We would like to avoid the addition of any additional oral opioids at this time. She was recently seen on 12/22/2017. Her PQRS review is completed and unchanged from that visit. PHYSICAL EXAMINATION: This is a pleasant female with marked rightwards convexity scoliotic change. The pain is noted along the left ribcage and radiating along the costal margin into the upper left hip and towards the groin. There is tenderness across the lumbosacral segment. There is a scar from previous intrathecal catheter placement. There is mild straight leg raising discomfort and tightness noted in both legs. She has osteoarthritis noted with hips and knees, localized tenderness. IMPRESSION: 1. Chronic low back pain with radiculopathy, post-laminectomy syndrome. 2. Diffuse osteoarthritis. 3. Intrathecal pump management. She is not ready for refill today. 4. Atrial fibrillation, on blood thinner, which has been discontinued in anticipation of her injection today. PROCEDURE: Lumbar epidural injection L2-L3 under fluoroscopic guidance. She was taken to fluoroscopic suite where she was placed prone, skin prepped with ChloraPrep. Skin anesthetized over the L2-L3 interspace. A 20-gauge Tuohy epidural needle was advanced in the epidural space with loss of resistance technique. There was no blood or CSF aspirated. 1 mL of Omnipaque was injected. Good spread of dye observed into the epidural space, was followed by 3 mL of 0.5% lidocaine mixed with 80 mg of triamcinolone. She tolerated the procedure well. [address] [address] PAIN MANAGEMENT CONSULTATION Name: SANCHEZRICHIE Room #: REG [facility].#: [id number] Admission: 01/08/18 Attend Phys: Russell Bartholomew MD Discharge: Date of : 34 Report #: [id number] Pain intensity was reduced to 0 at discharge. She was able to ambulate by her own accord and discharged. We will follow up and evaluate the response to this treatment at next pump refill. No new medications were ordered. She was instructed to restart her blood thinner, Savaysa, this evening. <ELECTRONICALLY SIGNED> By: Russell Bartholomew MD 01/09/18 1312 1608 0030 Russell Bartholomew MD /narda
[2018-01-08 08:48] VITALS: BP 97/60
== END | disposition home or self-care (01) ==
LOC: PAIN 06:59
DX: M54.16 Radiculopathy, lumbar region (principal); G89.29 Other chronic pain; M96.1 Postlaminectomy syndrome, not elsewhere classified; M19.90 Unspecified osteoarthritis, unspecified site; I48.91 Unspecified atrial fibrillation; Z79.01 Long term (current) use of anticoagulants; Z79.899 Other long term (current) drug therapy; Z98.890 Other specified postprocedural states; Z88.0 Allergy status to penicillin; Z79.891 Long term (current) use of opiate analgesic

== ENCOUNTER → 2018-03-02 | Outpatient (CLI) | payer OTHER, BC | LOC: HYPER 07:11 | DX: E11.621 Type 2 diabetes mellitus with foot ulcer (principal); L97.411 Non-pressure chronic ulcer of right heel and midfoot limited to breakdown of skin; L97.521 Non-pressure chronic ulcer of other part of left foot limited to breakdown of skin; E11.622 Type 2 diabetes mellitus with other skin ulcer; L97.811 Non-pressure chronic ulcer of other part of right lower leg limited to breakdown of skin; E11.51 Type 2 diabetes mellitus with diabetic peripheral angiopathy without gangrene; E11.42 Type 2 diabetes mellitus with diabetic polyneuropathy; E11.22 Type 2 diabetes mellitus with diabetic chronic kidney disease; I12.9 Hypertensive chronic kidney disease with stage 1 through stage 4 chronic kidney disease, or unspecified chronic kidney disease; N18.3 Chronic kidney disease, stage 3 (moderate); E66.9 Obesity, unspecified; G47.30 Sleep apnea, unspecified; I27.20 Pulmonary hypertension, unspecified; I87.2 Venous insufficiency (chronic) (peripheral); I48.91 Unspecified atrial fibrillation; J44.9 Chronic obstructive pulmonary disease, unspecified; M81.0 Age-related osteoporosis without current pathological fracture; M10.9 Gout, unspecified; F41.9 Anxiety disorder, unspecified; Z68.33 Body mass index [BMI] 33.0-33.9, adult; Z85.3 Personal history of malignant neoplasm of breast; Z96.653 Presence of artificial knee joint, bilateral ==

== ENCOUNTER → 2018-03-31 | Outpatient (CLI) | payer OTHER, BC | LOC: HYPER 06:48 | DX: E11.621 Type 2 diabetes mellitus with foot ulcer (principal); L97.412 Non-pressure chronic ulcer of right heel and midfoot with fat layer exposed; L97.521 Non-pressure chronic ulcer of other part of left foot limited to breakdown of skin; S91.312A Laceration without foreign body, left foot, initial encounter; E11.42 Type 2 diabetes mellitus with diabetic polyneuropathy; E11.51 Type 2 diabetes mellitus with diabetic peripheral angiopathy without gangrene; E11.22 Type 2 diabetes mellitus with diabetic chronic kidney disease; I12.9 Hypertensive chronic kidney disease with stage 1 through stage 4 chronic kidney disease, or unspecified chronic kidney disease; N18.3 Chronic kidney disease, stage 3 (moderate); E66.9 Obesity, unspecified; E03.9 Hypothyroidism, unspecified; G47.30 Sleep apnea, unspecified; I87.2 Venous insufficiency (chronic) (peripheral); I48.91 Unspecified atrial fibrillation; I27.20 Pulmonary hypertension, unspecified; J44.9 Chronic obstructive pulmonary disease, unspecified; M81.0 Age-related osteoporosis without current pathological fracture; M10.9 Gout, unspecified; F41.9 Anxiety disorder, unspecified; Z85.3 Personal history of malignant neoplasm of breast; Z85.038 Personal history of other malignant neoplasm of large intestine; Z68.33 Body mass index [BMI] 33.0-33.9, adult; Z96.653 Presence of artificial knee joint, bilateral; W19.XXXA Unspecified fall, initial encounter; Y93.89 Activity, other specified; Y92.89 Other specified places as the place of occurrence of the external cause; Y99.8 Other external cause status ==

== ENCOUNTER → 2018-04-02 | Outpatient (CLI) | payer OTHER, BC ==
[~2018-04-02] VITALS: Ht 160 cm; Wt 70.6 kg
--- NOTE | ~2018-04-02 | HPC ---
[facility] [address] [place] [address] PAIN MANAGEMENT CONSULTATION Name: RICHIE SANCHEZ Room #: REG [facility] Cata.#: [id number] Admission: 04/02/18 Attend Phys: Russell Bartholomew MD Discharge: Date of : 34 Report #: [id number] THIS REPORT FOR: //name// CC: Regis Bartholomew DATE OF SERVICE: 04/02/2018 Followup visit for chronic low back pain and management of intrathecal infusion pump. The patient returns to pain clinic today for refill of her intrathecal infusion pump. From a pain standpoint, she is doing quite well. She has some pain, but she describes it as quite manageable and is grateful for the relief that she receives from her pump. She has been experiencing quite a bit of pain in her feet. She has a bunion that developed wound following an amputation of the second digit. She had crowding, which necessitated the amputation. She is wearing special shoes because of that and it is her primary complaint at this time. She reports her back actually feels pretty good. PQRS REVIEW: 1. She has generalized osteoarthritis involving multiple joints, particularly with weightbearing. 2. She is a fall risk and has fallen within the last 3 months, tripping with some of the discomfort in her feet. She hit her head and back, but there were no sequelae. She had some bruising due to her use of blood thinner, Savaysa. She has a history of hypertension, which is under treatment by Dr. Wells. All of her medications were reviewed and reconciled. She was previously taking small amounts of hydrocodone provided by Dr. Wells, but apparently, he is uncomfortable providing this for her now with the opioid crisis. Her use was quite modest and she had no significant side effects. I have agreed to provide her with [place] 5/325 one tablet to be available for severe pain episodes, only #20 tablets were provided and this should be enough to give her some degree of security. I have also agreed to provide diclofenac gel for her low back and Zofran for intermittent nausea. An opioid agreement was signed and we will monitor her as we do all our opioid patients carefully and cautiously. She will safeguard her medication. The patient denies use of tobacco, but drinks alcohol in social setting. PHYSICAL EXAMINATION: VITAL SIGNS: Height 5 feet 3 inches, 155 pounds, BMI of 27.6. Blood pressure 148/95, heart rate 102, respirations 16. GENERAL: She is jules, pleasant and conversant. She shows no signs of anxiety, depression. She is a bit forgetful, but not overly so. She does not appear to have any signs of dementia that I can see. [address] [address] PAIN MANAGEMENT CONSULTATION Name: LAURAIRCHIE E Room #: REG CL Elizabeth#: [id number] Admission: 04/02/18 Attend Phys: Russell Bartholomew MD Discharge: Date of : 34 Report #: [id number] MUSCULOSKELETAL: She has some discomfort across her low back. I examined her foot only through the shoe, the dressing for the wound in place. She has tenderness over the right bunion where she has cut out an area of her shoe for room. She is able to stand independently and walk with a walker. IMPRESSION: 1. Chronic intractable back pain, well managed with intrathecal infusion pump. 2. Bilateral foot pain with recent amputation and right foot infection. 3. Management of intrathecal infusion pump with refill and reprogramming. PROCEDURE: Skin was prepped with ChloraPrep and a 22-gauge non-coring needle advanced in the pump. Old medication removed and discarded per protocol. Pump refilled with hydromorphone, bupivacaine and clonidine. Daily doses will be as follows, hydromorphone 4.2 mg, bupivacaine 3.3 mg, clonidine 20.17 mcg and droperidol 2 mcg per day for nausea. Reprogramming session was performed. Her next refill is scheduled for 07/15/2018. Her TONY is 35 months and she will need a pump within the next 2-1/2 years. We will have Dr. Regis Adams perform that replacement when the time comes. Medications were provided for her on discharge. We will plan to see her in about 3 months. By: 1805 2221 Russell Bartholomew MD /nt
[2018-04-02 13:05] VITALS: BP 148/95
--- NOTE | 2018-04-02 13:11 | NUR ---
Pain Clinic Assessment: 1. History of Osteoarthritis: GENERALIZED History of Rheumatoid Arthritis: Not Applicable 2. Height: 5 ft. 3 in. 160.0 cm. Weight: 155.6 lb. oz. 70.580 kg. Patient's BMI: 27.6 3. Vital Signs: BP: 148/95 Pulse: 102 Resp: 16 Temp: 02 Sat: 94 ECG Mon: 4. Pain Intensity: 4 FOOT 5. Fall Risk: Dizziness: N Needs help standing or walking: Y Fallen in the last 3 months: Y Fall risk comments: tripped over her own foot/fell backwards hit head and back 6. Patient on Blood Thinner: nikoaysa 7. History of Hypertension: Y 8. Opioid Therapy greater than 6 weeks: N Opiate Contract Signed: 9. Risk Assessment Tool Provided: 5-MOD 10. Functional Assessment Tool: 11. Recreational Drug Use: Never Drug Type: Tobacco Use: Never Smoker Tobacco Type: Amount or Packs/day: How Many Years: Alcohol Use: Yes Frequency: Quant:
== END | disposition home or self-care (01) ==
LOC: PAIN
DX: Z45.1 Encounter for adjustment and management of infusion pump (principal); M54.5 Low back pain; G89.29 Other chronic pain; I10 Essential (primary) hypertension; Z79.891 Long term (current) use of opiate analgesic; M19.90 Unspecified osteoarthritis, unspecified site; M25.571 Pain in right ankle and joints of right foot; M25.572 Pain in left ankle and joints of left foot; Z98.890 Other specified postprocedural states; I48.91 Unspecified atrial fibrillation; Z79.01 Long term (current) use of anticoagulants; Z88.0 Allergy status to penicillin; Z79.899 Other long term (current) drug therapy

== ENCOUNTER → 2018-04-22 | Outpatient (CLI) | payer OTHER, BC | LOC: HYPER 07:06 | DX: E11.621 Type 2 diabetes mellitus with foot ulcer (principal); L97.412 Non-pressure chronic ulcer of right heel and midfoot with fat layer exposed; L97.521 Non-pressure chronic ulcer of other part of left foot limited to breakdown of skin; E11.51 Type 2 diabetes mellitus with diabetic peripheral angiopathy without gangrene; E11.42 Type 2 diabetes mellitus with diabetic polyneuropathy; E11.22 Type 2 diabetes mellitus with diabetic chronic kidney disease; I12.9 Hypertensive chronic kidney disease with stage 1 through stage 4 chronic kidney disease, or unspecified chronic kidney disease; N18.3 Chronic kidney disease, stage 3 (moderate); E03.9 Hypothyroidism, unspecified; E66.9 Obesity, unspecified; G47.30 Sleep apnea, unspecified; I48.91 Unspecified atrial fibrillation; I87.2 Venous insufficiency (chronic) (peripheral); I27.20 Pulmonary hypertension, unspecified; J44.9 Chronic obstructive pulmonary disease, unspecified; M81.0 Age-related osteoporosis without current pathological fracture; M10.9 Gout, unspecified; F41.9 Anxiety disorder, unspecified; Z85.3 Personal history of malignant neoplasm of breast; Z85.038 Personal history of other malignant neoplasm of large intestine; Z96.653 Presence of artificial knee joint, bilateral ==

== ENCOUNTER → 2018-05-21 | Outpatient (CLI) | payer OTHER, BC | LOC: HYPER 06:56 | DX: E11.621 Type 2 diabetes mellitus with foot ulcer (principal); L97.412 Non-pressure chronic ulcer of right heel and midfoot with fat layer exposed; E11.51 Type 2 diabetes mellitus with diabetic peripheral angiopathy without gangrene; E11.42 Type 2 diabetes mellitus with diabetic polyneuropathy; E11.22 Type 2 diabetes mellitus with diabetic chronic kidney disease; I12.9 Hypertensive chronic kidney disease with stage 1 through stage 4 chronic kidney disease, or unspecified chronic kidney disease; N18.3 Chronic kidney disease, stage 3 (moderate); E66.9 Obesity, unspecified; E03.9 Hypothyroidism, unspecified; G47.30 Sleep apnea, unspecified; I87.2 Venous insufficiency (chronic) (peripheral); I48.91 Unspecified atrial fibrillation; I27.20 Pulmonary hypertension, unspecified; J44.9 Chronic obstructive pulmonary disease, unspecified; M81.0 Age-related osteoporosis without current pathological fracture; M10.9 Gout, unspecified; F41.9 Anxiety disorder, unspecified; Z96.653 Presence of artificial knee joint, bilateral; Z85.038 Personal history of other malignant neoplasm of large intestine; Z85.3 Personal history of malignant neoplasm of breast ==

== ENCOUNTER → 2018-06-17 | Outpatient (CLI) | payer OTHER, BC | LOC: HYPER 06:57 | DX: E11.621 Type 2 diabetes mellitus with foot ulcer (principal); L97.512 Non-pressure chronic ulcer of other part of right foot with fat layer exposed; E11.51 Type 2 diabetes mellitus with diabetic peripheral angiopathy without gangrene; E11.22 Type 2 diabetes mellitus with diabetic chronic kidney disease; I12.9 Hypertensive chronic kidney disease with stage 1 through stage 4 chronic kidney disease, or unspecified chronic kidney disease; N18.3 Chronic kidney disease, stage 3 (moderate); E11.42 Type 2 diabetes mellitus with diabetic polyneuropathy; E66.9 Obesity, unspecified; E03.9 Hypothyroidism, unspecified; G47.30 Sleep apnea, unspecified; I87.2 Venous insufficiency (chronic) (peripheral); I27.20 Pulmonary hypertension, unspecified; I48.91 Unspecified atrial fibrillation; J44.9 Chronic obstructive pulmonary disease, unspecified; M81.0 Age-related osteoporosis without current pathological fracture; M10.9 Gout, unspecified; F41.9 Anxiety disorder, unspecified; Z85.3 Personal history of malignant neoplasm of breast; Z96.653 Presence of artificial knee joint, bilateral; Z85.038 Personal history of other malignant neoplasm of large intestine; Z68.33 Body mass index [BMI] 33.0-33.9, adult ==

== ENCOUNTER → 2018-07-01 | Outpatient (CLI) | payer OTHER, BC | LOC: HYPER 06:51 | DX: E11.622 Type 2 diabetes mellitus with other skin ulcer (principal); L97.512 Non-pressure chronic ulcer of other part of right foot with fat layer exposed; I87.2 Venous insufficiency (chronic) (peripheral); E11.51 Type 2 diabetes mellitus with diabetic peripheral angiopathy without gangrene; E11.42 Type 2 diabetes mellitus with diabetic polyneuropathy; E11.22 Type 2 diabetes mellitus with diabetic chronic kidney disease; I12.9 Hypertensive chronic kidney disease with stage 1 through stage 4 chronic kidney disease, or unspecified chronic kidney disease; N18.3 Chronic kidney disease, stage 3 (moderate); I48.91 Unspecified atrial fibrillation; M81.0 Age-related osteoporosis without current pathological fracture; E66.9 Obesity, unspecified; M10.9 Gout, unspecified; E03.9 Hypothyroidism, unspecified; I27.20 Pulmonary hypertension, unspecified; G47.30 Sleep apnea, unspecified; J44.9 Chronic obstructive pulmonary disease, unspecified; F41.9 Anxiety disorder, unspecified; Z96.653 Presence of artificial knee joint, bilateral; Z68.33 Body mass index [BMI] 33.0-33.9, adult; Z85.3 Personal history of malignant neoplasm of breast ==

== ENCOUNTER → 2018-07-09 | Outpatient (CLI) | payer OTHER, BC ==
[~2018-07-09] VITALS: Ht 160 cm; Wt 70.9 kg
[~2018-07-09] MED LIST changes: +LASIX 20 MG TAB20 MG PO; -LASIX 40 MG TAB40 M2 PO; +SYNTHROID100 MC1 PO; -SYNTHROID100 MCG PO; +XARELTO15 MG PO
--- NOTE | ~2018-07-09 | HPC ---
[facility] [place] [address] PAIN MANAGEMENT CONSULTATION Name: RICHIE SANCHEZ Room #: REG [facility] [id number] Admission: 07/09/18 ������������������ Attend Phys: Russell Bartholomew MD Discharge: ������������������ Date of : 34 Report #: [id number] THIS REPORT FOR: //name// CC: Regis Bartholomew DATE OF SERVICE: 07/09/2018 Followup visit for chronic low back pain. The patient returns to pain clinic today complaining of pain in her low back. She has an intrathecal pump, which has been helpful. She also has pain in her left foot, which is a chronic wound. Dr. Gato Yeh has been helping care for this. She had a right second toe amputation, which has healed fairly well. She has multiple comorbidities including history of atrial fibrillation. She has had mitral valve regurgitation. She suffers from gastroesophageal reflux disease, hypertension, hypothyroidism and has a history of sleep apnea. She has been treated intermittently for depression and anxiety. PQRS: She describes multiple joint diffuse osteoarthritis. Her BMI is 27.7. Pain intensity is 4/10. She is a fall risk and has fallen in the last 3 months. She hit her head in one of her falls. She needs to be cautious because of her use of Xarelto. She is under treatment by Dr. Wells for hypertension as well. All medications were reviewed and reconciled. I have agreed to provide her with some hydrocodone. She uses it infrequently and does not use it on a regular basis. I see no reason not to provide her with a small amount of medication. Her last prescription for 20 tablets of [place] 5/325 was given in March. She has completed an opioid risk tool and has a moderate risk for misuse or abuse. We will keep her on lower doses. She continues to use alcohol once a week, but has never smoked. PHYSICAL EXAMINATION: She is a jules 82-year-old pleasant, alert and oriented. Her blood pressure is 102/64, heart rate 93, respirations 20, pain intensity 4/10. Pump is in the right lower abdomen, is nontender. She has pain across her low back. Complains of pain in her shoulders, hips and knees with weightbearing. IMPRESSION: 1. Chronic intractable back pain. 2. Osteoarthritis, multiple joints. 3. Bilateral foot pain with recent amputation. 4. Management of intrathecal infusion pump with refill reprogramming. [facility] [address] [place] [address] PAIN MANAGEMENT CONSULTATION Name: RICHIE SANCHEZ Room #: REG CLI [facility]#: [id number] Admission: 07/09/18 ������������������ Attend Phys: Russell Bartholomew MD Discharge: ������������������ Date of : 34 Report #: [id number] PROCEDURE: Skin was prepped with ChloraPrep and a 22-gauge non-coring needle advanced into the intrathecal pump. Old medication removed and discarded. Pump was refilled with bupivacaine, clonidine, droperidol as well as hydromorphone. These 4 medications in combination have been helpful. We continue to provide her with a dose that was not changed today of hydromorphone 4.2, bupivacaine 3.3, clonidine 20 and droperidol 2.0. She does not complain of nausea with the addition of the droperidol. Reprogramming session was printed and checked and provided to the patient for discharge. We will see her back in the pain clinic in 2-3 months for refill. ��������������������������������������������� ���������������������������������������� By: ��������������������������������������������� 1739 1233 Russell Bartholomew MD /nt
[2018-07-09 13:58] VITALS: BP 102/64
--- NOTE | 2018-07-09 14:18 | NUR ---
Pain Clinic Assessment: 1. History of Osteoarthritis: GENERALIZED History of Rheumatoid Arthritis: Not Applicable 2. Height: 5 ft. 3 in. 160.0 cm. Weight: 156.2 lb. oz. 70.852 kg. Patient's BMI: 27.7 3. Vital Signs: BP: 102/64 Pulse: 93 Resp: 20 Temp: 02 Sat: 96 ECG Mon: 4. Pain Intensity: 4 5. Fall Risk: Dizziness: N Needs help standing or walking: Y Fallen in the last 3 months: Y Fall risk comments: tripped over her own foot/fell backwards hit head and back 6. Patient on Blood Thinner: xarelto 7. History of Hypertension: Y 8. Opioid Therapy greater than 6 weeks: N Opiate Contract Signed: 9. Risk Assessment Tool Provided: 5-MOD 10. Functional Assessment Tool: 11. Recreational Drug Use: Never Drug Type: Tobacco Use: Never Smoker Tobacco Type: Amount or Packs/day: How Many Years: Alcohol Use: Yes Frequency: Weekly Quant: ONCE A WEEK
== END | disposition home or self-care (01) ==
LOC: PAIN 06:53
DX: Z45.1 Encounter for adjustment and management of infusion pump (principal); M54.5 Low back pain; G89.29 Other chronic pain; I10 Essential (primary) hypertension; I48.91 Unspecified atrial fibrillation; K21.9 Gastro-esophageal reflux disease without esophagitis; E03.9 Hypothyroidism, unspecified; F32.9 Major depressive disorder, single episode, unspecified; F41.9 Anxiety disorder, unspecified; M25.571 Pain in right ankle and joints of right foot; M25.572 Pain in left ankle and joints of left foot; Z79.899 Other long term (current) drug therapy; Z79.01 Long term (current) use of anticoagulants; Z98.890 Other specified postprocedural states

== ENCOUNTER → 2018-07-15 | Outpatient (CLI) | payer OTHER, BC | LOC: HYPER 06:40 | DX: E11.621 Type 2 diabetes mellitus with foot ulcer (principal); L97.412 Non-pressure chronic ulcer of right heel and midfoot with fat layer exposed; E11.51 Type 2 diabetes mellitus with diabetic peripheral angiopathy without gangrene; E11.42 Type 2 diabetes mellitus with diabetic polyneuropathy; E11.22 Type 2 diabetes mellitus with diabetic chronic kidney disease; I12.9 Hypertensive chronic kidney disease with stage 1 through stage 4 chronic kidney disease, or unspecified chronic kidney disease; N18.3 Chronic kidney disease, stage 3 (moderate); E66.9 Obesity, unspecified; E03.9 Hypothyroidism, unspecified; G47.30 Sleep apnea, unspecified; I87.2 Venous insufficiency (chronic) (peripheral); I48.91 Unspecified atrial fibrillation; J44.9 Chronic obstructive pulmonary disease, unspecified; I27.20 Pulmonary hypertension, unspecified; M81.0 Age-related osteoporosis without current pathological fracture; M10.9 Gout, unspecified; F41.9 Anxiety disorder, unspecified; Z85.3 Personal history of malignant neoplasm of breast; Z96.653 Presence of artificial knee joint, bilateral; Z85.038 Personal history of other malignant neoplasm of large intestine; Z68.33 Body mass index [BMI] 33.0-33.9, adult ==

== ENCOUNTER → 2018-07-22 | Outpatient (CLI) | payer OTHER, BC | LOC: HYPER 06:35 | DX: E11.621 Type 2 diabetes mellitus with foot ulcer (principal); L97.412 Non-pressure chronic ulcer of right heel and midfoot with fat layer exposed; E11.51 Type 2 diabetes mellitus with diabetic peripheral angiopathy without gangrene; E11.42 Type 2 diabetes mellitus with diabetic polyneuropathy; E11.22 Type 2 diabetes mellitus with diabetic chronic kidney disease; I12.9 Hypertensive chronic kidney disease with stage 1 through stage 4 chronic kidney disease, or unspecified chronic kidney disease; N18.3 Chronic kidney disease, stage 3 (moderate); E66.9 Obesity, unspecified; E03.9 Hypothyroidism, unspecified; G47.30 Sleep apnea, unspecified; I87.2 Venous insufficiency (chronic) (peripheral); I27.20 Pulmonary hypertension, unspecified; I48.91 Unspecified atrial fibrillation; J44.9 Chronic obstructive pulmonary disease, unspecified; M10.9 Gout, unspecified; M81.0 Age-related osteoporosis without current pathological fracture; F41.9 Anxiety disorder, unspecified; Z85.3 Personal history of malignant neoplasm of breast; Z85.038 Personal history of other malignant neoplasm of large intestine; Z96.653 Presence of artificial knee joint, bilateral ==

== ENCOUNTER → 2018-08-05 | Outpatient (CLI) | payer OTHER, BC | LOC: HYPER 06:59 | DX: E11.621 Type 2 diabetes mellitus with foot ulcer (principal); L97.411 Non-pressure chronic ulcer of right heel and midfoot limited to breakdown of skin; L97.512 Non-pressure chronic ulcer of other part of right foot with fat layer exposed; L84 Corns and callosities; E11.51 Type 2 diabetes mellitus with diabetic peripheral angiopathy without gangrene; E11.22 Type 2 diabetes mellitus with diabetic chronic kidney disease; I12.9 Hypertensive chronic kidney disease with stage 1 through stage 4 chronic kidney disease, or unspecified chronic kidney disease; N18.3 Chronic kidney disease, stage 3 (moderate); E11.42 Type 2 diabetes mellitus with diabetic polyneuropathy; E66.9 Obesity, unspecified; E03.9 Hypothyroidism, unspecified; G47.30 Sleep apnea, unspecified; I87.2 Venous insufficiency (chronic) (peripheral); I48.91 Unspecified atrial fibrillation; I27.20 Pulmonary hypertension, unspecified; J44.9 Chronic obstructive pulmonary disease, unspecified; M81.0 Age-related osteoporosis without current pathological fracture; M10.9 Gout, unspecified; F41.9 Anxiety disorder, unspecified; Z85.3 Personal history of malignant neoplasm of breast; Z85.038 Personal history of other malignant neoplasm of large intestine; Z96.653 Presence of artificial knee joint, bilateral ==

== ENCOUNTER → 2018-08-19 | Outpatient (CLI) | payer OTHER, BC | LOC: HYPER 06:43 | DX: E11.621 Type 2 diabetes mellitus with foot ulcer (principal); L97.512 Non-pressure chronic ulcer of other part of right foot with fat layer exposed; E11.51 Type 2 diabetes mellitus with diabetic peripheral angiopathy without gangrene; I87.2 Venous insufficiency (chronic) (peripheral); E11.42 Type 2 diabetes mellitus with diabetic polyneuropathy; E11.22 Type 2 diabetes mellitus with diabetic chronic kidney disease; I12.9 Hypertensive chronic kidney disease with stage 1 through stage 4 chronic kidney disease, or unspecified chronic kidney disease; N18.3 Chronic kidney disease, stage 3 (moderate); M80.0 Age-related osteoporosis with current pathological fracture; L84 Corns and callosities; E66.9 Obesity, unspecified; I48.91 Unspecified atrial fibrillation; M10.9 Gout, unspecified; E03.9 Hypothyroidism, unspecified; I27.20 Pulmonary hypertension, unspecified; G47.30 Sleep apnea, unspecified; J44.9 Chronic obstructive pulmonary disease, unspecified; F41.9 Anxiety disorder, unspecified; Z68.33 Body mass index [BMI] 33.0-33.9, adult; Z96.653 Presence of artificial knee joint, bilateral; Z85.3 Personal history of malignant neoplasm of breast ==

== ENCOUNTER → 2018-09-02 | Outpatient (CLI) | payer OTHER, BC | LOC: HYPER 06:43 | DX: E11.621 Type 2 diabetes mellitus with foot ulcer (principal); L97.512 Non-pressure chronic ulcer of other part of right foot with fat layer exposed; E11.51 Type 2 diabetes mellitus with diabetic peripheral angiopathy without gangrene; I87.2 Venous insufficiency (chronic) (peripheral); I12.9 Hypertensive chronic kidney disease with stage 1 through stage 4 chronic kidney disease, or unspecified chronic kidney disease; N18.3 Chronic kidney disease, stage 3 (moderate); M80.0 Age-related osteoporosis with current pathological fracture; E66.9 Obesity, unspecified; I48.91 Unspecified atrial fibrillation; L84 Corns and callosities; E03.9 Hypothyroidism, unspecified; I27.20 Pulmonary hypertension, unspecified; M10.9 Gout, unspecified; G62.9 Polyneuropathy, unspecified; G47.30 Sleep apnea, unspecified; J44.9 Chronic obstructive pulmonary disease, unspecified; F41.9 Anxiety disorder, unspecified; Z96.653 Presence of artificial knee joint, bilateral; Z85.3 Personal history of malignant neoplasm of breast; Z68.33 Body mass index [BMI] 33.0-33.9, adult ==

== ENCOUNTER → 2018-09-16 | Outpatient (CLI) | payer OTHER, BC ==
[~2018-09-16] MED LIST changes: +DEMADEX20 MG PO
== END ==
LOC: MRI 09-09 09:47
DX: L97.519 Non-pressure chronic ulcer of other part of right foot with unspecified severity (principal); M20.11 Hallux valgus (acquired), right foot

== ENCOUNTER → 2018-09-17 | Outpatient (CLI) | payer OTHER, BC ==
[~2018-09-17] VITALS: Ht 157.5 cm; Wt 73.2 kg
[2018-09-17 13:03] VITALS: BP 110/65
--- NOTE | 2018-09-17 13:19 | NUR ---
Pain Clinic Assessment: 1. History of Osteoarthritis: GENERALIZED History of Rheumatoid Arthritis: Not Applicable 2. Height: 5 ft. 2 in. 157.5 cm. Weight: 161.4 lb. oz. 73.211 kg. Patient's BMI: 29.5 3. Vital Signs: BP: 110/65 Pulse: 91 Resp: 20 Temp: 02 Sat: 96 ECG Mon: 4. Pain Intensity: 6 5. Fall Risk: Dizziness: Y Needs help standing or walking: Y Fallen in the last 3 months: Y Fall risk comments: tripped over her own foot/fell backwards hit head and back 6. Patient on Blood Thinner: xarelto 7. History of Hypertension: Y 8. Opioid Therapy greater than 6 weeks: N Opiate Contract Signed: 9. Risk Assessment Tool Provided: 5-MOD 10. Functional Assessment Tool: 11. Recreational Drug Use: Never Drug Type: Tobacco Use: Never Smoker Tobacco Type: Amount or Packs/day: How Many Years: Alcohol Use: Yes Frequency: Quant:
--- NOTE | 2018-09-22 17:25 | HPC ---
[facility] [place] [address] PAIN MANAGEMENT CONSULTATION Name: RICHIE SANCHEZ Room #: REG Cl Agatha.#: [id number] Admission: 09/17/18 ������������������ Attend Phys: Russell Bartholomew MD Discharge: ������������������ Date of : 34 Report #: [id number] THIS REPORT FOR: //name// CC: Regis Bartholomew DATE OF SERVICE: 09/17/2018 Followup visit for chronic pain. The patient has multiple pain generators. She has chronic low back pain with spondylosis, multiple joint osteoarthritis, today complaining bitterly of pain in her right shoulder, bilateral foot pain with recent amputation; currently also receiving wound care and she has an intrathecal infusion pump, which we manage with refill. She is here today complaining of pain in her shoulder. She uses her walker and she bears weight on her shoulders. I have reminded to her that shoulder is not a weightbearing joint! This has created wear and tear irritation throughout the joint. She also has psoriasis and plaquing around the shoulder joint and it is possible that she may have some component of psoriatic arthritis. Dr. Wells and her other physicians are following in providing medication for her. I am not sure if she has started on biologic, she could not remember the name of it today. PQRS REVIEW: 1. Positive for osteoarthritis and possibly for psoriatic arthritis. 2. She is 5 feet 2 inches, with a BMI of 29.5. 3. Vital signs, blood pressure 110/65, heart rate 91, respirations 20 and O2 sat 96. 4. Pain intensity is 6/10. 5. She is a fall risk and has fallen within the last 3 months. She has fallen both forward and backwards and due to her use of Xarelto, this is concerning. We have talked about slow and steady movements and cautious use of her walker and walking on unsteady or uneven ground. 6. She has a history of hypertension, treated by Dr. Wells. 7. She takes no opioid medications, other than those in her intrathecal pump and has not signed an opioid agreement. She did complete an opioid risk tool, scoring 5, which is considered a moderate risk. 8. She denies use of tobacco, drinks alcohol in a social setting on occasion. 9. All medications were reviewed and reconciled from the electronic medical record. IMPRESSION: 1. Chronic intractable back pain. 2. Osteoarthritis involving the right shoulder. 3. Bilateral foot pain, status post recent amputation. [address] [address] PAIN MANAGEMENT CONSULTATION Name: RICHIE SANCHEZ Room #: REG CLI Tala#: [id number] Admission: 09/17/18 ������������������ Attend Phys: Russell Bartholomew MD Discharge: ������������������ Date of : 34 Report #: [id number] 4. Management of intrathecal infusion pump. Next refill is scheduled for September or October. Examination of her shoulder suggests that she may benefit from a shoulder injection. I have agreed to provide the injection for her today. PROCEDURE: She was placed in sitting position, skin prepped with ChloraPrep. A 25-gauge needle advanced gently into the shoulder joint using a posterior approach. After negative aspiration, I injected a total of 4 mL of 0.5% bupivacaine mixed with 40 mg of triamcinolone. She tolerated the procedure well, was observed for 45 minutes and discharged. Followup visit planned as needed for pump management and further treatment of chronic pain generators. ��������������������������������������������� <ELECTRONICALLY SIGNED> ���������������������������������������� By: Russell Bartholomew MD ��������������������������������������������� 09/22/18 1725 1649 0140 Russell Bartholomew MD /nt
== END | disposition home or self-care (01) ==
LOC: PAIN 07:00
DX: M19.011 Primary osteoarthritis, right shoulder (principal); G89.29 Other chronic pain; M25.571 Pain in right ankle and joints of right foot; M25.572 Pain in left ankle and joints of left foot; I10 Essential (primary) hypertension; M19.90 Unspecified osteoarthritis, unspecified site; I48.91 Unspecified atrial fibrillation; Z79.01 Long term (current) use of anticoagulants; Z88.0 Allergy status to penicillin; Z79.899 Other long term (current) drug therapy; Z98.890 Other specified postprocedural states

== ENCOUNTER → 2018-09-17 | Outpatient (CLI) | payer OTHER, BC | LOC: HYPER | DX: E11.621 Type 2 diabetes mellitus with foot ulcer (principal); L97.412 Non-pressure chronic ulcer of right heel and midfoot with fat layer exposed; E11.51 Type 2 diabetes mellitus with diabetic peripheral angiopathy without gangrene; E11.22 Type 2 diabetes mellitus with diabetic chronic kidney disease; N18.3 Chronic kidney disease, stage 3 (moderate); E11.42 Type 2 diabetes mellitus with diabetic polyneuropathy; E66.9 Obesity, unspecified; E03.9 Hypothyroidism, unspecified; G47.30 Sleep apnea, unspecified; I87.2 Venous insufficiency (chronic) (peripheral); I10 Essential (primary) hypertension; I48.91 Unspecified atrial fibrillation; I27.20 Pulmonary hypertension, unspecified; J44.9 Chronic obstructive pulmonary disease, unspecified; M81.0 Age-related osteoporosis without current pathological fracture; M10.9 Gout, unspecified; F41.9 Anxiety disorder, unspecified; Z85.3 Personal history of malignant neoplasm of breast; Z85.038 Personal history of other malignant neoplasm of large intestine; Z96.653 Presence of artificial knee joint, bilateral ==

== ENCOUNTER → 2018-10-14 | Outpatient (CLI) | payer OTHER, BC | LOC: HYPER 06:32 | DX: E11.621 Type 2 diabetes mellitus with foot ulcer (principal); L97.512 Non-pressure chronic ulcer of other part of right foot with fat layer exposed; E11.51 Type 2 diabetes mellitus with diabetic peripheral angiopathy without gangrene; E11.42 Type 2 diabetes mellitus with diabetic polyneuropathy; E11.22 Type 2 diabetes mellitus with diabetic chronic kidney disease; I12.9 Hypertensive chronic kidney disease with stage 1 through stage 4 chronic kidney disease, or unspecified chronic kidney disease; N18.3 Chronic kidney disease, stage 3 (moderate); I87.2 Venous insufficiency (chronic) (peripheral); E03.9 Hypothyroidism, unspecified; I27.20 Pulmonary hypertension, unspecified; M80.0 Age-related osteoporosis with current pathological fracture; I48.91 Unspecified atrial fibrillation; E66.9 Obesity, unspecified; G47.30 Sleep apnea, unspecified; M10.9 Gout, unspecified; J44.9 Chronic obstructive pulmonary disease, unspecified; F41.9 Anxiety disorder, unspecified; Z96.653 Presence of artificial knee joint, bilateral; Z68.33 Body mass index [BMI] 33.0-33.9, adult; Z85.3 Personal history of malignant neoplasm of breast ==

== ENCOUNTER → 2018-10-15 | Outpatient (CLI) | payer OTHER, BC ==
[~2018-10-15] VITALS: Ht 152.4 cm; Wt 72.3 kg
--- NOTE | ~2018-10-15 | HPC ---
[facility] [place] [address] PAIN MANAGEMENT CONSULTATION Name: RICHIE SANCHEZ Room #: REG [facility] Cata.#: [id number] Admission: 10/15/18 ������������������ Attend Phys: Russell Bartholomwe MD Discharge: ������������������ Date of : 34 Report #: [id number] THIS REPORT FOR: //name// CC: Regis Bartholomew DATE OF SERVICE: 10/15/2018 Followup visit for chronic pain, management of intrathecal infusion pump. The patient is here today for refill of her intrathecal pump. Her pump is infusing a combination of hydromorphone, bupivacaine and clonidine. We also provided with a very minute amount of droperidol, which has done a nice job of controlling her nausea. She complains of pain in her shoulders bilaterally, right worse than left. She has responded to injections and would like to consider injection sometime in the future. PQRS REVIEW: 1. She has diffuse generalized osteoarthritis and history of psoriasis with psoriatic arthritis. 2. She is 5 feet 2 inches, BMI of 29.5. 3. Blood pressure 131/71, heart rate 91. 4. Pain intensity today is reported at 3-4/10. 5. She is a fall risk and has fallen within the last 3 months. Discussed strategies for careful movement with walker and walking on uneven ground. 6. She has a history of hypertension treated by Dr. Wells. 7. She has not signed an opioid agreement. She takes no opioid medications other than that in her intrathecal pump. 8. She denies use of tobacco, but drinks alcohol in a social setting. 9. All medications were reviewed and reconciled from the electronic medical record. There have been no changes since her recent visit in August, 1 month ago. PHYSICAL SYSTEMS: VITAL SIGNS: As noted above. GENERAL: Pleasant, alert, oriented. No signs of anxiety, depression or overmedication. MUSCULOSKELETAL: Examination of the shoulders reveals pain with external and internal rotation. Localized tenderness posteriorly. She has pain across her low back. She has a scar from previous laminectomy. IMPRESSION: 1. Chronic intractable back pain, post-laminectomy syndrome. 2. Osteoarthritis involving multiple joints, particularly right shoulder. 3. Management of intrathecal infusion pump with refill and reprogramming. [facility] [address] [place] [address] PAIN MANAGEMENT CONSULTATION Name: RICHIE SANCHEZ Whit Room #: REG [facility].#: [id number] Admission: 10/15/18 ������������������ Attend Phys: Russell Bartholomew MD Discharge: ������������������ Date of : 34 Report #: [id number] DESCRIPTION OF PROCEDURE: She was placed in the supine position. Skin was prepped with ChloraPrep overlying her pump. A 22-gauge non-coring needle advanced in the pump. Old medication removed and discarded per protocol. Pump was then refilled with a combination of bupivacaine, clonidine, droperidol and hydromorphone. Reprogramming session performed. An increase of her medication of 14% was provided at her request. We will try to avoid additional medications. She had asked about other medications to be utilized. We will make use of her intrathecal pump, which had caused fewer side effects. She will contact us if this medication increases to extensive. Reprogramming information was checked by myself and the nurse. A signed copy was provided to her. All the old medication from the pump was discarded per protocol. Her next refill is scheduled in December 2018. ��������������������������������������������� ���������������������������������������� By: ��������������������������������������������� 1809 0126 Russell Bartholomew MD /nt
[2018-10-15 13:06] VITALS: BP 131/71
--- NOTE | 2018-10-15 13:13 | NUR ---
Pain Clinic Assessment: 1. History of Osteoarthritis: GENERALIZED History of Rheumatoid Arthritis: Not Applicable 2. Height: 5 ft. 0 in. 152.4 cm. Weight: 159.4 lb. oz. 72.303 kg. Patient's BMI: 31.1 3. Vital Signs: BP: 131/71 Pulse: 91 Resp: 20 Temp: 02 Sat: 94 ECG Mon: 4. Pain Intensity: 3-4 5. Fall Risk: Dizziness: N Needs help standing or walking: N Fallen in the last 3 months: N Fall risk comments: tripped over her own foot/fell backwards hit head and back 6. Patient on Blood Thinner: xarelto 7. History of Hypertension: Y 8. Opioid Therapy greater than 6 weeks: N Opiate Contract Signed: 9. Risk Assessment Tool Provided: 5-MOD 10. Functional Assessment Tool: 11. Recreational Drug Use: Never Drug Type: Tobacco Use: Never Smoker Tobacco Type: Amount or Packs/day: How Many Years: Alcohol Use: Yes Frequency: Quant:
== END | disposition home or self-care (01) ==
LOC: PAIN
DX: Z45.1 Encounter for adjustment and management of infusion pump (principal); G89.29 Other chronic pain; M96.1 Postlaminectomy syndrome, not elsewhere classified; M19.90 Unspecified osteoarthritis, unspecified site; I10 Essential (primary) hypertension; I48.91 Unspecified atrial fibrillation; Z79.01 Long term (current) use of anticoagulants; Z88.0 Allergy status to penicillin; Z79.899 Other long term (current) drug therapy; Z79.891 Long term (current) use of opiate analgesic; Z98.890 Other specified postprocedural states

== ENCOUNTER → 2018-10-28 | Outpatient (CLI) | payer OTHER, BC | LOC: HYPER 06:57 | DX: L97.512 Non-pressure chronic ulcer of other part of right foot with fat layer exposed (principal); I73.9 Peripheral vascular disease, unspecified; I87.2 Venous insufficiency (chronic) (peripheral); I12.9 Hypertensive chronic kidney disease with stage 1 through stage 4 chronic kidney disease, or unspecified chronic kidney disease; N18.3 Chronic kidney disease, stage 3 (moderate); E11.42 Type 2 diabetes mellitus with diabetic polyneuropathy; L84 Corns and callosities; I48.91 Unspecified atrial fibrillation; M80.0 Age-related osteoporosis with current pathological fracture; I27.20 Pulmonary hypertension, unspecified; E03.9 Hypothyroidism, unspecified; G47.30 Sleep apnea, unspecified; M10.9 Gout, unspecified; E66.9 Obesity, unspecified; J44.9 Chronic obstructive pulmonary disease, unspecified; F41.9 Anxiety disorder, unspecified; Z68.33 Body mass index [BMI] 33.0-33.9, adult; Z85.3 Personal history of malignant neoplasm of breast; Z96.653 Presence of artificial knee joint, bilateral ==

== ENCOUNTER → 2018-11-05 | Outpatient (CLI) | payer OTHER, BC ==
[~2018-11-05] VITALS: Ht 157.5 cm; Wt 70.7 kg
--- NOTE | ~2018-11-05 | HPC ---
[facility] [place] [address] PAIN MANAGEMENT CONSULTATION Name: RICHIE SANCHEZ Room #: REG [facility].#: [id number] Admission: 11/05/18 Attend Phys: Russell Bartholomew MD Discharge: Date of : 33 Report #: [id number] THIS REPORT FOR: //name// CC: LOU Bartholomew DATE OF SERVICE: 11/05/2018 Followup visit for chronic pain. Today complaining mostly of right shoulder pain. 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 They begin to develop capsulitis and ultimately [id number] arthritis which results in significant pain and limitations. I have offered her a shoulder injection today, which may be helpful for pain. Can limit some of the inflammatory changes as well and may be helpful in that regard. ASSESSMENT: 1. Generalized osteoarthritis, which is diffuse. 2. BMI is 28.4. 3. Vital signs: Blood pressure 105/68, heart rate 92. 4. Pain intensity is 2-3 in the shoulder and 4-6 in the low back. 5. She is a fall risk, needs help standing and uses a walker. She has fallen once in the last 3 months when she tripped and fell backwards. 6. She is on a blood thinner, Xarelto, and must be cautious in her movements so that she does not injure herself more severely. 7. She is on hypertensive medication provided by Dr. Wells. 8. No opioid agreement and is not on opioid medications at this time other than those provided through her intrathecal pump. 9. Risk assessment tool is scored at a 5/10, which is moderate risk for addiction. 10. She denies use of tobacco, drinks alcohol socially. IMPRESSION: 1. Chronic intractable back pain, post-laminectomy syndrome. 2. Osteoarthritis, multiple joints, particularly right shoulder. 3. Management of intrathecal infusion pump with polypharmacy regimen, which is doing well. PLAN: Injection, right shoulder. [facility] [address] [place] [address] PAIN MANAGEMENT CONSULTATION Name: RICHIE SANCHEZ Room #: REG [facility]#: [id number] Admission: 11/05/18 Attend Phys: Russell Bartholomew MD Discharge: Date of : 34 Report #: [id number] PROCEDURE: She was taken to fluoroscopic suite. She was placed supine. Skin prepped with ChloraPrep. A 25-gauge needle was gently advanced in the shoulder joint. A 0.25 mL of Omnipaque was injected and excellent arthrogram obtained. It was then followed by 3 mL of 0.5% bupivacaine mixed with 40 mg of triamcinolone. She tolerated the procedure well and was observed for 45 minutes and discharged. Follow up as needed. By: [id number] Russell Bartholomew MD /narda
[2018-11-05 14:44] VITALS: BP 105/68
--- NOTE | 2018-11-05 15:14 | NUR ---
Pain Clinic Assessment: 1. History of Osteoarthritis: GENERALIZED History of Rheumatoid Arthritis: Not Applicable 2. Height: 5 ft. 2 in. 157.5 cm. Weight: 155.2 lb. oz. 70.682 kg. Patient's BMI: 28.4 3. Vital Signs: BP: 105/68 Pulse: 92 Resp: 16 Temp: 02 Sat: 96 ECG Mon: 4. Pain Intensity: 2-3 right shoulder,4 back 5. Fall Risk: Dizziness: Y Needs help standing or walking: Y Fallen in the last 3 months: N Fall risk comments: tripped over her own foot/fell backwards hit head and back 6. Patient on Blood Thinner: xarelto 7. History of Hypertension: Y 8. Opioid Therapy greater than 6 weeks: N Opiate Contract Signed: 9. Risk Assessment Tool Provided: 5-MOD 10. Functional Assessment Tool: 11. Recreational Drug Use: Never Drug Type: Tobacco Use: Never Smoker Tobacco Type: Amount or Packs/day: How Many Years: Alcohol Use: Yes Frequency: Quant:
== END | disposition home or self-care (01) ==
LOC: PAIN 06:54
DX: M19.011 Primary osteoarthritis, right shoulder (principal); G89.29 Other chronic pain; M96.1 Postlaminectomy syndrome, not elsewhere classified; I48.91 Unspecified atrial fibrillation; Z88.8 Allergy status to other drugs, medicaments and biological substances; Z88.0 Allergy status to penicillin; Z79.899 Other long term (current) drug therapy

== ENCOUNTER → 2018-11-18 | Outpatient (CLI) | payer OTHER, BC | LOC: HYPER 06:56 | DX: E11.621 Type 2 diabetes mellitus with foot ulcer (principal); L97.512 Non-pressure chronic ulcer of other part of right foot with fat layer exposed; E11.51 Type 2 diabetes mellitus with diabetic peripheral angiopathy without gangrene; E11.22 Type 2 diabetes mellitus with diabetic chronic kidney disease; E11.42 Type 2 diabetes mellitus with diabetic polyneuropathy; N18.3 Chronic kidney disease, stage 3 (moderate); E66.9 Obesity, unspecified; E03.9 Hypothyroidism, unspecified; G47.30 Sleep apnea, unspecified; I87.2 Venous insufficiency (chronic) (peripheral); I48.91 Unspecified atrial fibrillation; I27.20 Pulmonary hypertension, unspecified; J44.9 Chronic obstructive pulmonary disease, unspecified; M10.9 Gout, unspecified; M81.0 Age-related osteoporosis without current pathological fracture; F41.9 Anxiety disorder, unspecified; Z85.3 Personal history of malignant neoplasm of breast; Z85.038 Personal history of other malignant neoplasm of large intestine; Z96.653 Presence of artificial knee joint, bilateral ==

== ENCOUNTER → 2019-01-11 | Outpatient (CLI) | payer OTHER, BC ==
[~2019-01-11] VITALS: Ht 154.9 cm; Wt 66.9 kg
[~2019-01-11] MED LIST changes: +DILTIAZEM ER180 M2 PO; +METALAZONE PO; +ZOFRAN4 MG PO
--- NOTE | ~2019-01-11 | HPC ---
[facility] [address] [place] [address] PAIN MANAGEMENT CONSULTATION Name: RICHIE SANCHEZ [facility] [id number] Admission: 01/11/19 Attend Phys: Russell Bartholomew MD Discharge: Date of : 34 Report #: [id number] THIS REPORT FOR: //name// CC: Regis Bartholomew DATE OF SERVICE: 01/11/2019 Followup visit for management of intrathecal infusion pump, chronic intractable pain. Multiple pain generators. The patient returns to pain clinic today for renewal of medications in her intrathecal pump. I refilled and I also provided her with a small amount of hydrocodone 20 tablets, which often times will last for up to a couple of months. She only uses it when the pain is very severe and she feels like she needs something. Her biggest complaint today is nausea, which has been ongoing and longstanding. It may be related to her oral medications and is often times associated with constipation. She does have droperidol in her intrathecal pump in case it is related to intrathecal medications and those, who managed droperidol in intrathecal pump finds it to be an exceptionally good antiemetic. It did work when it was first initiated. She is at low dose. Her total daily dose of droperidol is just 2.3 mcg. The range in our current use is up to 60 mcg per day. We may consider increasing her concentration of droperidol in the intrathecal pump. It seems to have no other central side effects. PQRS completed. 1. She has diffuse osteoarthritis, particularly in her shoulders involves multiple joints. Age-related degenerative changes. 2. Her BMI is 27.9 and she has lost a fair amount of weight over the course of the last several months related to nausea and lack of appetite. 3. Blood pressure 97/63, heart rate 105, respirations 20. 4. Pain intensity is 1/10. Her pain is well controlled. 5. She has not fallen in the last 3 months, but needs help standing and walking. She reports tripping, but did not fall. 6. She is on blood thinner, Xarelto, and cautions stressed regarding falls and use of nonsteroidal anti-inflammatory drugs. 7. She is treated for hypertension by Dr. Regis Wells. 8. She is not taking substantial amount of opioid, but has completed an opioid risk tool. Score is 5 putting her at moderate risk for misuse or abuse. Her use of medication is quite limited. 9. Functional assessment score is 20. She remains active and living in her own home. 10. She denies use of tobacco, occasionally has an alcoholic beverage, and is cautious about getting around after she has had a drink. [facility] [address] [place] [address] PAIN MANAGEMENT CONSULTATION Name: RICHIE SANCHEZ Whit Room #: REG [facility]#: [id number] Admission: 01/11/19 Attend Phys: Russell Bartholomew MD Discharge: Date of : 34 Report #: [id number] PHYSICAL EXAMINATION: She is alert and oriented. No signs of depression, anxiety or overmedication. She moves independently from sitting to standing position. Her gait is a bit unsteady and antalgic. She has some tenderness and pain in her right shoulder and left shoulder. CHEST: Clear. CARDIAC: Rhythm is regular. There is no audible murmur. EXTREMITIES: Free of edema at this time. IMPRESSION: 1. Chronic intractable back pain, post-laminectomy syndrome. 2. Osteoarthritis, multiple joints, particularly right shoulder. 3. Management of intrathecal infusion pump with polypharmacy regimen including antiemetics droperidol. PROCEDURE: Refill and reprogramming of intrathecal infusion pump. Skin was prepped with ChloraPrep and a 22-gauge non-coring needle advanced into the intrathecal pump. Old medication removed and discarded per protocol. The expected amount was retrieved. The pump was then refilled with a combination of hydromorphone, bupivacaine, clonidine, and droperidol. Reprogramming session was performed and left at current dosing. Her daily dose of hydromorphone is 4.7, bupivacaine 3.8, clonidine 23 mcg, which is quite low dose and droperidol at 2.3, also extremely low dose. Her next refill is scheduled for 04/04/2019. Programming information was confirmed and shared with the patient and nurse. I did prescribe for her 20 hydrocodone 5/325 tablets with instructions to carefully safeguard these medications. By: [id number] Russell Bartholomew MD /nt
[2019-01-11 10:51] VITALS: BP 97/63
--- NOTE | 2019-01-11 11:09 | NUR ---
Pain Clinic Assessment: 1. History of Osteoarthritis: GENERALIZED History of Rheumatoid Arthritis: Not Applicable 2. Height: 5 ft. 1 in. 154.9 cm. Weight: 147.4 lb. oz. 66.860 kg. Patient's BMI: 27.9 3. Vital Signs: BP: 97/63 Pulse: 105 Resp: 20 Temp: 02 Sat: 97 ECG Mon: 4. Pain Intensity: 1 5. Fall Risk: Dizziness: N Needs help standing or walking: Y Fallen in the last 3 months: N Fall risk comments: tripped over her own foot/fell backwards hit head and back 6. Patient on Blood Thinner: xarelto 7. History of Hypertension: Y 8. Opioid Therapy greater than 6 weeks: N Opiate Contract Signed: 9. Risk Assessment Tool Provided: 5-MOD 10. Functional Assessment Tool: 11. Recreational Drug Use: Never Drug Type: Tobacco Use: Never Smoker Tobacco Type: Amount or Packs/day: How Many Years: Alcohol Use: Yes Frequency: Quant:
== END | disposition home or self-care (01) ==
LOC: PAIN 06:47
DX: Z45.1 Encounter for adjustment and management of infusion pump (principal); M54.5 Low back pain; G89.29 Other chronic pain; M19.90 Unspecified osteoarthritis, unspecified site; M96.1 Postlaminectomy syndrome, not elsewhere classified; Z98.890 Other specified postprocedural states; Z79.891 Long term (current) use of opiate analgesic; Z79.899 Other long term (current) drug therapy; Z88.0 Allergy status to penicillin; I48.91 Unspecified atrial fibrillation; Z79.01 Long term (current) use of anticoagulants

== ENCOUNTER → 2019-01-25 | Outpatient (CLI) | payer OTHER, BC ==
[~2019-01-25] VITALS: Ht 154.9 cm; Wt 65.7 kg
[2019-01-25 13:11] VITALS: BP 105/74
--- NOTE | 2019-01-25 13:27 | NUR ---
Pain Clinic Assessment: 1. History of Osteoarthritis: GENERALIZED History of Rheumatoid Arthritis: Not Applicable 2. Height: 5 ft. 1 in. 154.9 cm. Weight: 144.8 lb. oz. 65.681 kg. Patient's BMI: 27.4 3. Vital Signs: BP: 105/74 Pulse: 103 Resp: 18 Temp: 02 Sat: 96 ECG Mon: 4. Pain Intensity: 3 5. Fall Risk: Dizziness: N Needs help standing or walking: Y Fallen in the last 3 months: N Fall risk comments: tripped over her own foot/fell backwards hit head and back 6. Patient on Blood Thinner: xarelto 7. History of Hypertension: Y 8. Opioid Therapy greater than 6 weeks: N Opiate Contract Signed: 9. Risk Assessment Tool Provided: 5-MOD 10. Functional Assessment Tool: 11. Recreational Drug Use: Never Drug Type: Tobacco Use: Never Smoker Tobacco Type: Amount or Packs/day: How Many Years: Alcohol Use: Yes Frequency: Special Occasions Quant:
--- NOTE | 2019-01-26 15:21 | HPC ---
[facility] [place] [address] [place] [address] PAIN MANAGEMENT CONSULTATION Name: RICHIE SANCHEZ [id number] Admission: 01/25/19 Attend Phys: Connie Mares Discharge: Date of : 34 Report #: [id number] THIS REPORT FOR: //name// CC: Connie Wells DATE OF SERVICE: 01/25/2019 CHIEF COMPLAINT: Nausea. HISTORY OF PRESENT ILLNESS: This is a very pleasant 83-year-old female who returns to the pain clinic today for a decrease in her intrathecal pump. The patient has been having significant nausea without vomiting for greater than a month. The patient reports it started before her last intrathecal fill, which was on 01/11/2019. She tells me that she only vomited one time. Otherwise, she is just nauseated despite having droperidol in her pump at all times. We are decreasing her intrathecal pump today by 20% under the direction of Dr. Russell Bartholomew and Dr. Regis Wells. Dr. Wells believes some of her nausea may be related to her pump medications, so therefore, we are trying to determine if this is the case, we will decrease her 20% today and again 20% on and possibly changing her concentration of medications for her next fill. The patient is agreeable with this plan of care. She rates her pain score today at 3/10, mostly in her lower back and right shoulder, but her most pressing complaint today is nausea. ALLERGIES: PENICILLIN, ADHESIVE TAPE. CURRENT LIST OF MEDICATIONS: Zofran 4 mg b.i.d. p.r.n., hydrocodone p.r.n., diltiazem 180 mg daily, Demadex 20 mg t.i.d., Xarelto 15 mg at dinner, allopurinol 300 mg daily, potassium daily, vitamin D, Protonix, Prozac, propranolol, Synthroid and Xanax. PQRS: 1. She has diffuse osteoarthritis, particularly in her shoulders and multiple joints. Denies rheumatoid arthritis. 2. Height is 5 feet 1 inch, weight is 144, BMI is 27. 3. Vital signs 105/74, pulse is 103, respirations 18, oxygen sat is 96. 4. Pain score is 3/10. 5. Denies dizziness. Does need a walker for ambulation, has not fallen in the last 3 months. 6. The patient is on Xarelto and also takes medicine for high blood pressure. 7. Opioid therapy is greater than 6 weeks. Her risk assessment is moderate. Functional assessment is 20/70. 8. Recreational drug use, she denies. She is not a smoker and occasionally drinks alcohol on special occasions. [address] [address] PAIN MANAGEMENT CONSULTATION Name: SANCHEZRICHIE Room #: REG [facility]#: [id number] Admission: 01/25/19 Attend Phys: Connie Mares Discharge: Date of : 34 Report #: [id number] PHYSICAL EXAMINATION: GENERAL: She is alert and orientated 83-year-old female in no signs of overmedication. HEENT: Normocephalic, atraumatic. Extraocular eye muscles are intact. Mucous membranes are moist. MUSCULOSKELETAL: She moves independently from sitting to standing position. She does walk with a walker. She has an unsteady antalgic gait. She has tenderness in her lower back and her right shoulder. ABDOMEN: She does complain of nausea with no tenderness in her abdomen noted today. IMPRESSION: 1. Chronic intractable back pain, post-laminectomy syndrome. 2. Osteoarthritis of multiple joints affected, right shoulder greatest generator. 3. Management of intrathecal infusion pump with polypharmacy regime including antiemetic droperidol. PLAN: 1. We decreased her intrathecal pump by 20% today. This effected all medications in her pump. The current dose today with a 20% decrease are 3.841 mg per day of Dilaudid, bupivacaine 3.07 mg per day, clonidine 18.43 mcg per day and droperidol 1.843 mcg per day. The patient's new refill alarm date is 04/12/2019, but we will decrease her again by another 20% on . 2. The patient's appointment was made for follow up. 3. The patient is seen by Dr. Russell Bartholomew who did explain the plan of care to the patient as well today and collaborated care also. <ELECTRONICALLY SIGNED> By: Connie Mares 01/26/19 1521 [id number] 0058 Connie Mares /narda
== END | disposition home or self-care (01) ==
LOC: PAIN 06:55
DX: Z45.1 Encounter for adjustment and management of infusion pump (principal); G89.29 Other chronic pain; M96.1 Postlaminectomy syndrome, not elsewhere classified; M19.90 Unspecified osteoarthritis, unspecified site; Z88.0 Allergy status to penicillin; Z88.8 Allergy status to other drugs, medicaments and biological substances; Z79.899 Other long term (current) drug therapy

== ENCOUNTER → 2019-01-28 | Outpatient (CLI) | payer OTHER, BC ==
[~2019-01-28] VITALS: Ht 154.9 cm; Wt 65.7 kg
[2019-01-28 13:40] VITALS: BP 106/62
--- NOTE | 2019-01-28 14:00 | NUR ---
Pain Clinic Assessment: 1. History of Osteoarthritis: GENERALIZED History of Rheumatoid Arthritis: Not Applicable 2. Height: 5 ft. 1 in. 154.9 cm. Weight: 144.8 lb. oz. 65.681 kg. Patient's BMI: 27.4 3. Vital Signs: BP: 106/62 Pulse: 85 Resp: 20 Temp: 02 Sat: 96 ECG Mon: 4. Pain Intensity: 5 5. Fall Risk: Dizziness: Y Needs help standing or walking: Y Fallen in the last 3 months: N Fall risk comments: tripped over her own foot/fell backwards hit head and back 6. Patient on Blood Thinner: xarelto 7. History of Hypertension: Y 8. Opioid Therapy greater than 6 weeks: N Opiate Contract Signed: 9. Risk Assessment Tool Provided: 5-MOD 10. Functional Assessment Tool: 11. Recreational Drug Use: Never Drug Type: Tobacco Use: Never Smoker Tobacco Type: Amount or Packs/day: How Many Years: Alcohol Use: Yes Frequency: Quant:
--- NOTE | 2019-02-01 07:57 | HPC ---
[facility] [address] [place] [address] PAIN MANAGEMENT CONSULTATION Name: RICHIE SANCHEZ [facility] [id number] Admission: 01/28/19 Attend Phys: Connie Mares Discharge: Date of : 34 Report #: [id number] THIS REPORT FOR: //name// CC: Connie Bartholomew MD DATE OF SERVICE: 01/28/2019 CHIEF COMPLAINT: Low back pain and nausea. HISTORY OF PRESENT ILLNESS: This is a very pleasant 83-year-old female who returns to the pain clinic today to have her intrathecal pump decreased again. We did decrease it on 01/28/2019, 20%. Today, she is reporting her pain score at 5/10. She feels like she has not been quite as nauseated since as she was before Friday. She does admit to taking a couple Zofran tablets to aid in her nausea. She has not had any emesis. Today, she is reporting her pain score of 5/10. It is in her right shoulder and her low back, especially her left flank area. She reports pain is worse with movement, walking, standing, but her pain is alleviated with her intrathecal pump medications as well as sitting and elevating her feet. The patient does report that she had occasional burning with urination and again the left flank pain. She is not associated that with a kidney infection because she does have ongoing back pain that is in that generalized area in her back. She denies any fever and is afebrile today when we checked. ALLERGIES: PENICILLIN AND ADHESIVE. CURRENT LIST OF MEDICATIONS: Zofran p.r.n., hydrocodone 5/325 p.r.n., diltiazem 180 mg daily, metolazone weekly, torsemide 20 mg t.i.d., Xarelto 15 mg at dinner, allopurinol 300 mg daily, potassium 10 mEq b.i.d., Tylenol Extra Strength p.r.n., vitamin D, Protonix 20 mg at bedtime, Prozac 20 mg daily, propranolol 20 mg b.i.d., Synthroid 100 mcg daily and alprazolam p.r.n. PQRS: 1. She has a history of generalized osteoarthritis that is diffuse particular in her shoulders and multiple joints. She denies any rheumatoid arthritis. 2. Height is 5 feet 1 inch, weight is 144, BMI is 27. 3. Vital signs line which we checked orthostatic were 97/64, 84 pulse, 20 respirations, 91 oxygen, sitting 105/64 blood pressure, 86 pulse, 20 respirations, 97 oxygen, standing 117/104 blood pressure, pulse 103, respirations 20, oxygen sat 92. She was afebrile. 4. Pain score is 5/10. 5. Complains of dizziness. Does use a walker at all times. Has not fallen in [address] [address] PAIN MANAGEMENT CONSULTATION Name: RICHIE SANCHEZ Room #: [facility]#: [id number] Admission: 01/28/19 Attend Phys: Connie Mares Discharge: Date of : 34 Report #: [id number] the last 3 months. 6. The patient is on Xarelto and also takes medicine for hypertension. 7. Opioid therapy is greater than 6 weeks. We have an opioid signed contract on the chart. 8. Risk assessment tool is moderate. Functional assessment is 20/70. 9. Recreational drug use, she denies. She is not a smoker and occasionally drinks alcohol. According to the prescription monitoring system, she is filling appropriately for her medications and filling appropriate and safeguards her medications. PHYSICAL EXAMINATION: GENERAL: This is alert and orientated 83-year-old who shows no signs of overmedication, stating her pain score is 5/10 today. HEENT: Normocephalic, atraumatic. Extraocular eye muscles are intact. Mucous membranes are moist. MUSCULOSKELETAL: She moves independently from the sitting to standing position using her walker at all times. She does complain of low back pain and left flank pain as well as right shoulder tenderness. ABDOMEN: She does complain of slight nausea with no emesis. No tenderness in her abdomen noted. GENITOURINARY: The patient does complain of occasional burning, dysuria that is intermittent. LABORATORY DATA: She has a CBC that has a white blood cell of 11.7, red blood cells 4.6, hemoglobin is 12.7, hematocrit 39. She has neutrophils that are 8.3, lymphocytes are 1.9, monocytes are 1.2 and high and immature grans are 0.2. Her BUN was elevated at 64, creatinine 2.11. Her EGFR is 21, BUN and creatinine ratio is 30. Sodium was 136, potassium 3.8, chloride 84, carbon dioxide 34. Calcium is 8.1. She had a urinalysis that showed wbc's 3+. Microscopic indicated showed white blood cells greater than 30 and casts were present. These labs were taken on 01/21/[address] Wells's office. He does have these labs as well. IMPRESSION: 1. Chronic intractable pain, post-laminectomy syndrome. 2. Osteoarthritis of multiple joints affected right shoulder being the greatest pain generator. 3. Management of intrathecal pump with polypharmacy regimen with antiemetic droperidol in her pump. 4. Possible pyelonephritis or urinary tract infection. PLAN: 1. Dr. Bartholomew did see the patient as well as myself today and spent a significant amount of time and then did text Dr. Wells the findings of her lab work as well as the patient complains of dysuria. The patient has decreased [facility] [address] [place] [address] PAIN MANAGEMENT CONSULTATION Name: LAURARICHIE E [facility] [id number] Admission: 01/28/19 Attend Phys: Connie Mares Discharge: Date of : 34 Report #: [id number] some of her nausea since she was here the other day, but has required Zofran. We will per Dr. Wells's request decrease her intrathecal pump again today decreasing it by 5%. 2. Current pump settings are Dilaudid 3.654 mg per day, bupivacaine 2.9 to 3 mg per day, clonidine 17.5 mcg per day and droperidol 1.754 mcg per day, this changes her refill date to 04/25/2019. 3. Appointment made for the patient next for another possible injection adjustment in her intrathecal pump. 4. The patient states she does have an annual physical with Dr. Wells next week. She will discuss her lab work with him at that time and her ongoing symptoms. 5. The patient is seen in collaboration with Dr. Russell Bartholomew who was here present today as well. <ELECTRONICALLY SIGNED> By: Connie Mares 02/01/19 0757 [id number] [id number] Connie Mares /nt
== END ==
LOC: PAIN 06:56
DX: Z45.1 Encounter for adjustment and management of infusion pump (principal); G89.29 Other chronic pain; M96.1 Postlaminectomy syndrome, not elsewhere classified; M19.90 Unspecified osteoarthritis, unspecified site; Z88.0 Allergy status to penicillin; Z88.8 Allergy status to other drugs, medicaments and biological substances; Z79.899 Other long term (current) drug therapy

== ENCOUNTER → 2019-02-04 | Outpatient (CLI) | payer OTHER, BC ==
[~2019-02-04] VITALS: Ht 154.9 cm; Wt 65.3 kg
[2019-02-04 11:12] VITALS: BP 95/61
--- NOTE | 2019-02-04 11:34 | NUR ---
Pain Clinic Assessment: 1. History of Osteoarthritis: GENERALIZED History of Rheumatoid Arthritis: Not Applicable 2. Height: 5 ft. 1 in. 154.9 cm. Weight: 144.0 lb. oz. 65.318 kg. Patient's BMI: 27.2 3. Vital Signs: BP: 95/61 Pulse: 97 Resp: 18 Temp: 02 Sat: 97 ECG Mon: 4. Pain Intensity: 8-9 5. Fall Risk: Dizziness: N Needs help standing or walking: Y Fallen in the last 3 months: Y Fall risk comments: tripped over her own foot/fell backwards hit head and back 6. Patient on Blood Thinner: xarelto 7. History of Hypertension: Y 8. Opioid Therapy greater than 6 weeks: N Opiate Contract Signed: 9. Risk Assessment Tool Provided: 5-MOD 10. Functional Assessment Tool: 11. Recreational Drug Use: Never Drug Type: Tobacco Use: Never Smoker Tobacco Type: Amount or Packs/day: How Many Years: Alcohol Use: Yes Frequency: Quant:
--- NOTE | 2019-02-05 10:01 | HPC ---
[facility] [address] [place] [address] PAIN MANAGEMENT CONSULTATION Name: RICHIE SANCHEZ [facility] [id number] Admission: 02/04/19 Attend Phys: Connie Mares Discharge: Date of : 34 Report #: [id number] THIS REPORT FOR: //name// CC: Connie Bartholomew MD DATE OF SERVICE: 02/04/2019 CHIEF COMPLAINT: Low back pain and nausea, right shoulder pain. HISTORY OF PRESENT ILLNESS: This is a very pleasant 83-year-old female who returns to the pain clinic today for a possible adjustment in her intrathecal pump due to recent nausea. The patient does report that her nausea is better, rating her overall pain score at 2/10 today. She is also reporting to me that she fell on Friday, she had called our office, we encouraged her to go to the Emergency Room or to her primary care doctor. She did neither. She waited to see us today. She is able to raise her arm, though with significant pain. She has significant bruising in her right shoulder as well, rating this pain in her right shoulder at 8/10 today. She continues to complain of slight discomfort with urination and has not seen Dr. Wells regarding this issue and her recent labs. She has an appointment next week with him. We were under the understanding that was this week. Her is here present with her today. ALLERGIES: PENICILLIN AND ADHESIVE. CURRENT LIST OF MEDICATIONS: Hydrocodone 5/325 p.r.n., diltiazem 180 mg daily, torsemide 20 mg t.i.d., Xarelto 15 mg daily, allopurinol 300 mg daily, potassium 10 mEq daily, Tylenol Extra Strength p.r.n., vitamin D, Protonix, Prozac 20 mg at bedtime, propranolol 20 mg b.i.d., Synthroid 100 mcg daily and Xanax p.r.n. PQRS: 1. 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 Denies any rheumatoid arthritis. 2. Height is 5 feet 1 inch, weight is 144, BMI is 27. 3. Vital signs 95/61, pulse is 97, respirations 18, oxygen sat is 97. 4. Pain score is 2/10 in her back and 8/10 in her right shoulder. 5. Denies dizziness. Does need help walking. She is in a wheelchair today presently. She fell on Friday. 6. The patient is on Xarelto and also takes medicine for hypertension. 7. Opioid therapy is greater than 6 weeks. Her risk assessment tool is moderate. Functional assessment is 20/70. 8. Recreational drug use, she denies. She is not a smoker and occasionally drinks alcohol. [address] [address] PAIN MANAGEMENT CONSULTATION Name: RICHIE SANCHEZ Whit [facility] [id number] Admission: 02/04/19 Attend Phys: Connie Mares Discharge: Date of : 34 Report #: [id number] According to the prescription monitoring system, the patient is filling appropriately. She takes hydrocodone oral meds very sparingly. Most of her medication is in her intrathecal pump. PHYSICAL EXAMINATION: GENERAL: This is alert and orientated 83-year-old female who appears her stated age with no signs of overmedication, rating her pain score from 2-8/10 today. HEENT: Normocephalic, atraumatic. Extraocular eye muscles are intact. Mucous membranes are moist. MUSCULOSKELETAL: She moves independently from the sitting to standing position using a walker, though she is in a wheelchair presently. She has tenderness in her right shoulder with large ecchymosis area. She has increaed in pain with active and passive range of motion asw well as abduction and adduction. ABDOMEN: Denies nausea or emesis at this present time. GENITOURINARY: The patient continues to complain of ongoing dysuria intermittently. X-ray findings: right shoulder, 3-view, no acute abnormality, chronic-appearing fracture in the distal right clavicle, advanced degenerative osteoarthritis. IMPRESSION: 1. Chronic intractable pain, post-laminectomy syndrome. 2. Right shoulder pain, recent fall. Negative x-ray for fracture. 3. Osteoarthritis of multiple joints affecting her shoulders and spine. 4. Management of intrathecal pump with polypharmacy regimen and antiemetic droperidol in her pump. PLAN: 1. The patient reports significant decrease in her nausea. We have been decreasing her intrathecal pump to see if this is the cause of her nausea. She does not report any significant increase in pain and her pump decrease 25%. I believe that we will keep it where it is today with no changes. This may have been a source of her nausea. She does have Droperidol in her intrathecal pump.The patient's refill date is now 04/25/2019. We will adjust the medications within the pump at her next fill. 2. Due to the patient's recent fall on Friday, we had ordered an x-ray, which was negative of her right shoulder. I instructed the patient to continue to use heat or ice. If it does continue to cause significant pain when she sees Dr. Wells next week, he may order any further testing he sees fit. 3. The patient requested script for hydrocodone. She does take these very sparingly, but per her report of her , she is taking once a day since her fall. Scripts sent electronically to her pharmacy for hydrocodone #30. [address] [address] PAIN MANAGEMENT CONSULTATION Name: SANCHEZRICHIE Room #: REG [facility] Elizabeth#: [id number] Admission: 02/04/19 Attend Phys: Connie Mares Discharge: Date of : 34 Report #: [id number] 4. The patient will return as needed or for her pump refill in April. 5. The patient is seen in collaboration today with Dr. Russell Bartholomew. <ELECTRONICALLY SIGNED> By: Connie Mares 02/05/19 1001 1348 [id number] Connie Mares /narda
== END ==
LOC: PAIN 06:59
DX: S42.031A Displaced fracture of lateral end of right clavicle, initial encounter for closed fracture (principal); M19.011 Primary osteoarthritis, right shoulder; G89.4 Chronic pain syndrome; M96.1 Postlaminectomy syndrome, not elsewhere classified; M47.816 Spondylosis without myelopathy or radiculopathy, lumbar region; Z79.899 Other long term (current) drug therapy; Z88.8 Allergy status to other drugs, medicaments and biological substances; W19.XXXA Unspecified fall, initial encounter; Y93.89 Activity, other specified; Y92.89 Other specified places as the place of occurrence of the external cause; Y99.8 Other external cause status

== ENCOUNTER → 2019-04-19 | Outpatient (CLI) | payer OTHER, BC ==
[~2019-04-19] VITALS: Ht 154.9 cm; Wt 63.2 kg
--- NOTE | ~2019-04-19 | HPC ---
[facility] [place] [address] [address] PAIN MANAGEMENT CONSULTATION Name: RICHIE SANCHEZ [facility] [id number] Admission: 04/19/19 Attend Phys: Russell Bartholomew MD Discharge: Date of : 34 Report #: [id number] THIS REPORT FOR: //name// CC: Regis Bartholomew DATE OF SERVICE: 04/19/2019 Followup visit for chronic pain. The patient returns to pain clinic today for refill of intrathecal infusion pump. We are making some adjustments. We dropped her intrathecal infusion due to nausea. She is better, having some mild nausea, but her pain is certainly worse. She complains of pain radiating into both legs. I reduced the concentrations of bupivacaine, hydromorphone, clonidine and increase the concentration of droperidol. This should help control her nausea, allows the ability to adjust her intrathecal medication upward without relying on oral opioids. She is on hydrocodone 5/325. I have agreed to provide her with a small prescription for a breakthrough hydrocodone under terms of written opioid agreement. Only 30 tablets were provided with release prescriptions for 4 and 8 weeks, so 1 per day. Most of her pain relief will come from her intrathecal pump. PQRS review positive for generalized diffuse osteoarthritis. Her BMI is 26.4, blood pressure 111/72, heart rate 96, respirations 14. Pain intensity is 3 with walking, a pretty good score. She is a fall risk. She tripped over her own feet and fell backwards and hit her head within the last few months. This is concerning because she is on Xarelto, but there was no sequelae of the serious nature. She has recovered. She is on antihypertensive medications provided by Dr. Wells and I reviewed those. She is on an opioid agreement. She has completed an opioid risk tool assessment with score of 1 suggesting very low likelihood of any addictive behaviors. I am impressed by her functional assessment score, which is 22/70 which is seen often times in optimistic patients who tend to downplay their pain. She denies use of tobacco, drinks a bit of alcohol in a social setting. She was counseled about alcohol in combination with pain medication. IMPRESSION: 1. Chronic intractable pain, post-laminectomy syndrome. 2. Osteoarthritis pain, right shoulder. 3. Diffuse multiple joint pain secondary to osteoarthritis. 4. Management of intrathecal pump with refill reprogramming. PROCEDURE: After informed consent, the skin was prepped with ChloraPrep. A 22-gauge non-coring needle advanced in the pump. [place] [address] PAIN MANAGEMENT CONSULTATION Name: RICHIE SANCHEZ Room #: REG [facility] Elizabeth#: [id number] Admission: 04/19/19 Attend Phys: Russell Bartholomew MD Discharge: Date of : 34 Report #: [id number] discarded. Pump was refilled with a combination of hydromorphone, clonidine, bupivacaine, droperidol. I reprogrammed the pump to provide a slight increase in the hydromorphone, bupivacaine and clonidine, but there will be substantial increase in her droperidol from 1.7 mcg a day to 7 mcg per day. We have had patients as high as 40-60 per day droperidol, so this remains low dose relative to our experience. This should be helpful for her nausea as reported. Prescription was provided to the pharmacy for her hydrocodone 5/325, #30 tablets. One refill provided for her in 4 weeks and a second one in 8. Follow up as needed. By: [id number] Russell Bartholomew MD /nt
[2019-04-19 13:02] VITALS: BP 111/72
--- NOTE | 2019-04-19 13:22 | NUR ---
Pain Clinic Assessment: 1. History of Osteoarthritis: GENERALIZED History of Rheumatoid Arthritis: Not Applicable 2. Height: 5 ft. 1 in. 154.9 cm. Weight: 139.4 lb. oz. 63.231 kg. Patient's BMI: 26.4 3. Vital Signs: BP: 111/72 Pulse: 96 Resp: 14 Temp: 02 Sat: 100 ECG Mon: 4. Pain Intensity: 3 WITH WALKING 5. Fall Risk: Dizziness: Y Needs help standing or walking: Y Fallen in the last 3 months: Y Fall risk comments: tripped over her own foot/fell backwards hit head and back 6. Patient on Blood Thinner: xarelto 7. History of Hypertension: Y 8. Opioid Therapy greater than 6 weeks: N Opiate Contract Signed: 9. Risk Assessment Tool Provided: 1-LOW 10. Functional Assessment Tool: 11. Recreational Drug Use: Never Drug Type: Tobacco Use: Never Smoker Tobacco Type: Amount or Packs/day: How Many Years: Alcohol Use: Yes Frequency: Quant:
== END | disposition home or self-care (01) ==
LOC: PAIN 06:44
DX: Z45.1 Encounter for adjustment and management of infusion pump (principal); G89.29 Other chronic pain; M96.1 Postlaminectomy syndrome, not elsewhere classified; I48.91 Unspecified atrial fibrillation; M19.011 Primary osteoarthritis, right shoulder; M19.90 Unspecified osteoarthritis, unspecified site; Z79.891 Long term (current) use of opiate analgesic; Z98.890 Other specified postprocedural states; Z79.899 Other long term (current) drug therapy; Z88.0 Allergy status to penicillin

== ENCOUNTER → 2019-04-22 | Outpatient (CLI) | payer OTHER, BC | LOC: HYPER 14:17 | DX: E11.621 Type 2 diabetes mellitus with foot ulcer (principal); L97.512 Non-pressure chronic ulcer of other part of right foot with fat layer exposed; S81.811A Laceration without foreign body, right lower leg, initial encounter; E11.22 Type 2 diabetes mellitus with diabetic chronic kidney disease; I12.9 Hypertensive chronic kidney disease with stage 1 through stage 4 chronic kidney disease, or unspecified chronic kidney disease; N18.3 Chronic kidney disease, stage 3 (moderate); I87.2 Venous insufficiency (chronic) (peripheral); E11.51 Type 2 diabetes mellitus with diabetic peripheral angiopathy without gangrene; E11.42 Type 2 diabetes mellitus with diabetic polyneuropathy; J44.9 Chronic obstructive pulmonary disease, unspecified; I48.91 Unspecified atrial fibrillation; I27.20 Pulmonary hypertension, unspecified; E66.09 Other obesity due to excess calories; E03.9 Hypothyroidism, unspecified; H91.90 Unspecified hearing loss, unspecified ear; M81.0 Age-related osteoporosis without current pathological fracture; M10.9 Gout, unspecified; G47.30 Sleep apnea, unspecified; F41.9 Anxiety disorder, unspecified; F40.240 Claustrophobia; Z68.32 Body mass index [BMI] 32.0-32.9, adult; Z85.3 Personal history of malignant neoplasm of breast; Z96.653 Presence of artificial knee joint, bilateral; Z90.49 Acquired absence of other specified parts of digestive tract; W19.XXXA Unspecified fall, initial encounter; Y93.89 Activity, other specified; Y92.89 Other specified places as the place of occurrence of the external cause; Y99.8 Other external cause status ==

== ENCOUNTER → 2019-05-11 | Outpatient (CLI) | payer OTHER, BC | LOC: HYPER 14:18 | DX: E11.621 Type 2 diabetes mellitus with foot ulcer (principal); L97.512 Non-pressure chronic ulcer of other part of right foot with fat layer exposed; S81.811D Laceration without foreign body, right lower leg, subsequent encounter; I87.2 Venous insufficiency (chronic) (peripheral); E11.42 Type 2 diabetes mellitus with diabetic polyneuropathy; E11.51 Type 2 diabetes mellitus with diabetic peripheral angiopathy without gangrene; L84 Corns and callosities; E11.22 Type 2 diabetes mellitus with diabetic chronic kidney disease; I12.9 Hypertensive chronic kidney disease with stage 1 through stage 4 chronic kidney disease, or unspecified chronic kidney disease; N18.3 Chronic kidney disease, stage 3 (moderate); J44.9 Chronic obstructive pulmonary disease, unspecified; M10.9 Gout, unspecified; E03.9 Hypothyroidism, unspecified; M81.0 Age-related osteoporosis without current pathological fracture; I48.91 Unspecified atrial fibrillation; G47.30 Sleep apnea, unspecified; F41.9 Anxiety disorder, unspecified; Z85.3 Personal history of malignant neoplasm of breast; E66.09 Other obesity due to excess calories; Z68.32 Body mass index [BMI] 32.0-32.9, adult; Z85.028 Personal history of other malignant neoplasm of stomach; Z96.653 Presence of artificial knee joint, bilateral; Z79.01 Long term (current) use of anticoagulants; Z90.49 Acquired absence of other specified parts of digestive tract; X58.XXXD Exposure to other specified factors, subsequent encounter ==

== ENCOUNTER → 2019-05-18 | Outpatient (CLI) | payer OTHER, BC | LOC: HYPER 13:52 | DX: L97.512 Non-pressure chronic ulcer of other part of right foot with fat layer exposed (principal); S81.812A Laceration without foreign body, left lower leg, initial encounter; S81.811D Laceration without foreign body, right lower leg, subsequent encounter; S80.12XD Contusion of left lower leg, subsequent encounter; I87.2 Venous insufficiency (chronic) (peripheral); E11.42 Type 2 diabetes mellitus with diabetic polyneuropathy; E11.51 Type 2 diabetes mellitus with diabetic peripheral angiopathy without gangrene; E11.22 Type 2 diabetes mellitus with diabetic chronic kidney disease; I12.9 Hypertensive chronic kidney disease with stage 1 through stage 4 chronic kidney disease, or unspecified chronic kidney disease; N18.9 Chronic kidney disease, unspecified; J44.9 Chronic obstructive pulmonary disease, unspecified; I48.91 Unspecified atrial fibrillation; G47.30 Sleep apnea, unspecified; M81.0 Age-related osteoporosis without current pathological fracture; E03.9 Hypothyroidism, unspecified; M10.9 Gout, unspecified; F41.9 Anxiety disorder, unspecified; E66.09 Other obesity due to excess calories; Z85.09 Personal history of malignant neoplasm of other digestive organs; Z68.32 Body mass index [BMI] 32.0-32.9, adult; Z96.653 Presence of artificial knee joint, bilateral; Z85.3 Personal history of malignant neoplasm of breast; Z79.01 Long term (current) use of anticoagulants; X58.XXXA Exposure to other specified factors, initial encounter; X58.XXXD Exposure to other specified factors, subsequent encounter; Y93.89 Activity, other specified; Y92.89 Other specified places as the place of occurrence of the external cause; Y99.8 Other external cause status ==

== ENCOUNTER → 2019-05-27 | Outpatient (CLI) | payer OTHER, BC | LOC: HYPER 11:41 | DX: E11.621 Type 2 diabetes mellitus with foot ulcer (principal); L97.512 Non-pressure chronic ulcer of other part of right foot with fat layer exposed; S81.812D Laceration without foreign body, left lower leg, subsequent encounter; S81.811D Laceration without foreign body, right lower leg, subsequent encounter; I87.2 Venous insufficiency (chronic) (peripheral); E11.51 Type 2 diabetes mellitus with diabetic peripheral angiopathy without gangrene; E11.42 Type 2 diabetes mellitus with diabetic polyneuropathy; E11.22 Type 2 diabetes mellitus with diabetic chronic kidney disease; I12.9 Hypertensive chronic kidney disease with stage 1 through stage 4 chronic kidney disease, or unspecified chronic kidney disease; N18.3 Chronic kidney disease, stage 3 (moderate); J44.9 Chronic obstructive pulmonary disease, unspecified; I48.91 Unspecified atrial fibrillation; M81.0 Age-related osteoporosis without current pathological fracture; E03.9 Hypothyroidism, unspecified; M10.9 Gout, unspecified; E66.09 Other obesity due to excess calories; G47.30 Sleep apnea, unspecified; F41.9 Anxiety disorder, unspecified; Z85.09 Personal history of malignant neoplasm of other digestive organs; Z85.3 Personal history of malignant neoplasm of breast; Z68.32 Body mass index [BMI] 32.0-32.9, adult; Z79.01 Long term (current) use of anticoagulants; Z96.653 Presence of artificial knee joint, bilateral; Z89.422 Acquired absence of other left toe(s); Z90.49 Acquired absence of other specified parts of digestive tract; X58.XXXD Exposure to other specified factors, subsequent encounter ==

== ENCOUNTER → 2019-06-02 | Outpatient (CLI) | payer OTHER, BC | LOC: HYPER 14:27 | DX: E11.621 Type 2 diabetes mellitus with foot ulcer (principal); L97.512 Non-pressure chronic ulcer of other part of right foot with fat layer exposed; S81.811D Laceration without foreign body, right lower leg, subsequent encounter; S81.812A Laceration without foreign body, left lower leg, initial encounter; I87.2 Venous insufficiency (chronic) (peripheral); E11.42 Type 2 diabetes mellitus with diabetic polyneuropathy; E11.51 Type 2 diabetes mellitus with diabetic peripheral angiopathy without gangrene; E11.22 Type 2 diabetes mellitus with diabetic chronic kidney disease; I12.9 Hypertensive chronic kidney disease with stage 1 through stage 4 chronic kidney disease, or unspecified chronic kidney disease; N18.3 Chronic kidney disease, stage 3 (moderate); J44.9 Chronic obstructive pulmonary disease, unspecified; I48.91 Unspecified atrial fibrillation; G47.30 Sleep apnea, unspecified; M81.0 Age-related osteoporosis without current pathological fracture; E03.9 Hypothyroidism, unspecified; M10.9 Gout, unspecified; E66.09 Other obesity due to excess calories; F41.9 Anxiety disorder, unspecified; Z68.32 Body mass index [BMI] 32.0-32.9, adult; Z85.3 Personal history of malignant neoplasm of breast; Z85.09 Personal history of malignant neoplasm of other digestive organs; Z96.653 Presence of artificial knee joint, bilateral; Z90.49 Acquired absence of other specified parts of digestive tract; Z79.01 Long term (current) use of anticoagulants; X58.XXXD Exposure to other specified factors, subsequent encounter; X58.XXXA Exposure to other specified factors, initial encounter; Y93.89 Activity, other specified; Y92.89 Other specified places as the place of occurrence of the external cause; Y99.8 Other external cause status ==

== ENCOUNTER → 2019-06-08 | Outpatient (CLI) | payer OTHER, BC | LOC: HYPER 14:38 | DX: E11.621 Type 2 diabetes mellitus with foot ulcer (principal); L97.512 Non-pressure chronic ulcer of other part of right foot with fat layer exposed; E11.622 Type 2 diabetes mellitus with other skin ulcer; L97.811 Non-pressure chronic ulcer of other part of right lower leg limited to breakdown of skin; S81.812D Laceration without foreign body, left lower leg, subsequent encounter; S80.12XD Contusion of left lower leg, subsequent encounter; E11.42 Type 2 diabetes mellitus with diabetic polyneuropathy; E11.51 Type 2 diabetes mellitus with diabetic peripheral angiopathy without gangrene; E11.22 Type 2 diabetes mellitus with diabetic chronic kidney disease; N18.3 Chronic kidney disease, stage 3 (moderate); E66.09 Other obesity due to excess calories; E03.9 Hypothyroidism, unspecified; G47.30 Sleep apnea, unspecified; I87.2 Venous insufficiency (chronic) (peripheral); I10 Essential (primary) hypertension; I27.20 Pulmonary hypertension, unspecified; I48.91 Unspecified atrial fibrillation; M81.0 Age-related osteoporosis without current pathological fracture; M10.9 Gout, unspecified; J44.9 Chronic obstructive pulmonary disease, unspecified; F41.9 Anxiety disorder, unspecified; Z85.3 Personal history of malignant neoplasm of breast; Z85.89 Personal history of malignant neoplasm of other organs and systems; Z96.653 Presence of artificial knee joint, bilateral; X58.XXXD Exposure to other specified factors, subsequent encounter ==

== ENCOUNTER → 2019-06-17 | Outpatient (CLI) | payer OTHER, BC ==
[~2019-06-17] VITALS: Ht 152.4 cm; Wt 61.2 kg
[~2019-06-17] MED LIST changes: +MAGNESIUM250 M1 PO; -PROZAC 20 MG20 MG PO; +PROZAC20 MG PO; -VITAMIN D1000 UNI1 PO; +VITAMIN D350 MC3 PO
--- NOTE | ~2019-06-17 | P ---
[facility] [place] [address] [place] [address] PROCEDURE REPORT Name: IRCHIE SANCHEZ Room #: REG [facility]#: [id number] Admission: 06/17/19 Attend Phys: Regis James MD Discharge: Date of : 34 Report #: [id number] THIS REPORT FOR: cc: Regis Wells MD, John L. MD Thesing,Regis Ramirez MD ~ CC: Regis James OUTPATIENT UPPER ENDOSCOPY REPORT BRIEF HISTORY: The patient is an 83-year-old woman with solid food dysphagia. She also has had problems with nausea. PREOPERATIVE DIAGNOSIS: Solid food dysphagia and nausea. POSTOPERATIVE DIAGNOSES: 1. Moderate diffuse gastritis. 2. Solid food dysphagia. MEDICATIONS: Deep sedation with propofol per anesthesia. SPECIMEN: None. ESTIMATED BLOOD LOSS: None. PROCEDURE: EGD with biopsy and Savary dilation of the esophagus. FINDINGS: Prior to propofol sedation, procedure of upper endoscopy and dilation was discussed with the patient as well as potential risks and its complications. She indicates she understands and desires to proceed. DESCRIPTION OF PROCEDURE: With the patient in left lateral decubitus position, the Olympus video endoscope was inserted in the cervical esophagus under direct vision without difficulty. Examination of this organ through its entire length revealed normal esophageal mucosa down the squamocolumnar junction. Squamocolumnar junction was inspected and noted to be unremarkable. There was no evidence of ulcers, strictures or mass lesions. A hiatus hernia was not seen. Scope was advanced in the stomach, was examined on end view as well as retroflexed views. She had a moderate diffuse gastritis consisting of erythema. The mucosa was intact without ulcers or erosions. Upon retroflexion, no mass lesions were seen. Multiple biopsies obtained of the gastritis. The pylorus, duodenal bulb and post-coronary sweep were inspected and noted to be unremarkable. At that point, the scope was slowly withdrawn and careful circumferential views confirmed the above findings. The patient tolerated the procedure well. [address] [address] PROCEDURE REPORT Name: RICHIE SANCHEZ Room #: REG [facility]#: [id number] Admission: 06/17/19 Attend Phys: Regis James MD Discharge: Date of : 34 Report #: [id number] As far as dysphagia, I did not see any obvious strictures or rings. We initially attempted to pass a 48-Grenadian Garcia dilator, which would not pass easily into the upper esophagus. Therefore, further attempts were discontinued. The endoscope was reinserted and a guidewire was advanced through the biopsy channel into the antrum of the stomach. The scope was withdrawn over the wire. We subsequently dilated with a 48-Grenadian Savary dilator over wire without difficulty. CONDITION OF THE PATIENT UPON DISCHARGE: Following procedure, the patient drowsy and prepared for colonoscopy. INSTRUCTIONS TO THE PATIENT AND FAMILY AT THE TIME OF DISCHARGE: I do not see an obvious stricturing. She was dilated due to her symptoms of solid food dysphagia. She is currently on pantoprazole, which I have her continue at this point in time. As far as her nausea, I did not see retained solids in the stomach. We will proceed with colonoscopy at this time for evaluation of her rectal bleeding and change in bowel habits. By: 1027 1036 Regis James MD /nt
--- NOTE | ~2019-06-17 | P ---
[facility] [place] [address] [place] [address] PROCEDURE REPORT Name: RICHIE SANCHEZ Room #: REG [facility]#: [id number] Admission: 06/17/19 Attend Phys: Regis James MD Discharge: Date of : 34 Report #: [id number] THIS REPORT FOR: cc: Regis Wells MD, John L. MD Thesing,Regis Ramirez MD ~ CC: Regis James DATE OF SERVICE: 06/17/2019 BRIEF HISTORY: The patient is an 83-year-old woman who has had recent onset of intermittent rectal bleeding. She has also had a significant change in bowel habits. In addition, she has a history of a tubulovillous adenoma removed in 2013. She did not follow up in 3 years as recommended. PREOPERATIVE DIAGNOSES: Rectal bleeding and history of advanced adenoma and change of bowel habits. POSTOPERATIVE DIAGNOSES: 1. Colon polyps. 2. Moderately severe sigmoid diverticulosis coli. MEDICATIONS: Deep sedation with propofol per anesthesia. SPECIMENS: 1. Proximal transverse colon polyp. 2. Rectal polyp. ESTIMATED BLOOD LOSS: 3 mL. PROCEDURE: Colonoscopy to cecum and terminal ileum with snare polypectomy. FINDINGS: Prior to propofol sedation, procedure of colonoscopy was discussed with the patient as well as potential risks and its complications. She indicates she understands and desires to proceed. DESCRIPTION OF PROCEDURE: With the patient in left lateral decubitus position, digital examination was completed, which revealed no abnormalities. Subsequently, the Skinny Mom colonoscope was introduced into the rectum, advanced under direct vision. We started with the standard adult colonoscope and had extreme difficulty navigating through the sigmoid colon. It was a very tortuous with sharp angles and diverticular disease. The scope would not pass, so we withdrew the scope and restarted with the pediatric colonoscope. We still had some difficulty, but on this occasion, we were able to pass the scope [facility] [address] [place] [address] PROCEDURE REPORT Name: RICHIE SANCHEZ Room #: REG [facility]#: [id number] Admission: 06/17/19 Attend Phys: Regis James MD Discharge: Date of : 34 Report #: [id number] through the sigmoid colon and proximally. The scope was passed with some difficulty and finally into the proximal colon and the appendiceal orifice and the ileocecal valve were identified. I was able to advance the tip of the scope to the mouth of the ileocecal valve and identified a villous pattern. However, due to looping of the scope, I could not deeply intubate the ileum. At that point, the scope was slowly withdrawn and careful circumferential views were obtained. The prep was good. The mucosa was within normal limits, normal vascular pattern, normal light reflex. As we withdrew the scope, no abnormalities were noted until the hepatic flexure was reached, at which point, a 4-5 mm sessile polyp was seen and removed by cold snare polypectomy. The polyp was recovered. The scope was further withdrawn and no additional abnormalities were noted until we withdrew the scope to the sigmoid colon. As noted above, the sigmoid colon was somewhat narrowed with moderate diverticular disease. There were a number of angles, but I did not see definite stricture or mass lesion. Also, there was no evidence of bleeding in the sigmoid colon. The scope was withdrawn in the rectum, and in the mid rectum, a 5-6 mm sessile polyp was seen and removed by cold snare polypectomy. No other lesions were seen. Upon retroflexion, significant hemorrhoids were not seen. There was no blood at the anal verge or the anal canal. I did not see any fissuring either. The scope was withdrawn. The patient tolerated the procedure well. CONDITION OF THE PATIENT UPON DISCHARGE: Following the procedure, the patient drowsy and arousable. She will be discharged home when fully ambulatory. INSTRUCTIONS TO THE PATIENT AND FAMILY AT THE TIME OF DISCHARGE: The patient had rectal bleeding. An obvious site of bleeding was not seen. She did have 2 polyps, but they are relatively small and I think unlikely to be the sources of bleeding. In spite of the fact that I did not see hemorrhoids or fissuring, suspect the blood likely came from the anal canal. As far as change in bowel habits, she has significant diverticular disease with a very tortuous and angled sigmoid colon without definite obstruction, but certainly luminal narrowing. I would suggest a high-fiber diet and fiber product such as Metamucil or Citrucel daily. If she has problems with constipation, use of MiraLax may be indicated. She should return to the care of Dr. Wells and return to see me as needed. The patient is on anticoagulation. She may resume in 48 hours. The patient will return to see me in followup if she has any further problems with bowel function or bleeding. [facility] [address] [place] [address] PROCEDURE REPORT Name: RICHIE SANCHEZ Room #: REG [facility]#: [id number] Admission: 06/17/19 Attend Phys: Regis James MD Discharge: Date of : 34 Report #: [id number] Last colonoscopy was in 2013. Withdrawal time from the cecum was 13 minutes 21 seconds. By: 1110 1137 Regis James MD /nt
--- NOTE | 2019-06-21 17:07 | PATH ---
[facility] [place] [address] PATHOLOGY RPT PROCEDURE Name: RICHIE SANCHEZ Whit Room #: REG [facility]..#: [id number] Admission: 06/17/19 Date of : 34 Discharge: Report #: [id number] Path Case #: [id number] [facility] Accession Number: [id number] . 01 Material submitted: . PART A: stomach - BIOPSY OF GASTRITIS PART B: colon - POLYP AT PROXIMAL TRANSVERSE. Modifiers: proximal, transverse PART C: rectum - POLYP AT RECTUM . 01 Clinical history: . Dysphagia Gastritis, dysphagia . 02 Diagnosis: A. Gastric mucosa, gastritis, R/O H. pylori, endoscopic biopsy: - Mild reactive gastropathy. - Negative for intestinal metaplasia or atrophy. - Negative for Helicobacter pylori (properly controlled immunohistochemical stain performed). . B. Polyp, at proximal transverse, endoscopic biopsy: - Tubular adenoma. - Negative for high-grade dysplasia. . C. Polyp, at rectum, endoscopic biopsy: - Inflamed hyperplastic polyp. - Negative for dysplasia. (IUV:robert; 06/21/2019) QMS 06/21/2019 1420 Local . 02 Electronically signed: . Jane Ko MD, Pathologist NPI- [id number] . 01 Gross description: . A. Received in formalin labeled "Richie Sanchez, BX of gastritis" and consists of multiple fragments of hercules tissue measuring 0.9 x 0.7 x 0.2 cm. They are entirely submitted in A1. . B. Received in formalin labeled "Richie Sanchez, polyp at proximal transverse" and consists of a segment of hercules tissue measuring 1.1 x 0.5 x 0.3 cm. It is inked, trisected and is submitted entirely in B1. . C. Received in formalin labeled "Richie Sanchez, polyp at rectum" and consists of a fragment of hercules tissue measuring 0.3 x 0.3 x 0.2 cm. It is entirely submitted in C1. [address] [address] PATHOLOGY RPT PROCEDURE Name: RICHIE SANCHEZ Room #: REG [facility].#: [id number] Admission: 06/17/19 Date of : 34 Discharge: Report #: [id number] Path Case #: [id number] ([facility]; 06/18/2019) SYU/SYU 06/21/2019 141 Local . 02 Pathologist provided ICD-10: K31.9, D12.3, K62.1 . 02 CPT . 557948, 739240, 668108, [id number] Specimen Comment: A courtesy copy of this report has been sent to [phone], [phone] Specimen Comment: [id number] Specimen Comment: Report sent to / DR HERRERA Performed at: [address], [place] [id number] MD Shravan Saavedra MD Phone: [phone] Performed at: [address] [id number] MD Jane Ko MD Phone: [phone]
== END | disposition home or self-care (01) ==
LOC: GI 08:37
DX: K62.5 Hemorrhage of anus and rectum (principal); R19.4 Change in bowel habit; R13.19 Other dysphagia; D12.3 Benign neoplasm of transverse colon; K31.9 Disease of stomach and duodenum, unspecified; K51.40 Inflammatory polyps of colon without complications; R11.0 Nausea; I10 Essential (primary) hypertension; E78.5 Hyperlipidemia, unspecified; I48.91 Unspecified atrial fibrillation; K21.9 Gastro-esophageal reflux disease without esophagitis; F41.9 Anxiety disorder, unspecified; E03.9 Hypothyroidism, unspecified; Z98.890 Other specified postprocedural states; Z79.899 Other long term (current) drug therapy; Z90.49 Acquired absence of other specified parts of digestive tract; Z96.653 Presence of artificial knee joint, bilateral; Z98.41 Cataract extraction status, right eye; Z79.01 Long term (current) use of anticoagulants; Z98.42 Cataract extraction status, left eye

== ENCOUNTER → 2019-06-22 | Outpatient (CLI) | payer OTHER, BC | LOC: HYPER 10:43 | DX: E11.621 Type 2 diabetes mellitus with foot ulcer (principal); L97.512 Non-pressure chronic ulcer of other part of right foot with fat layer exposed; E11.622 Type 2 diabetes mellitus with other skin ulcer; L97.822 Non-pressure chronic ulcer of other part of left lower leg with fat layer exposed; S81.812D Laceration without foreign body, left lower leg, subsequent encounter; S80.12XD Contusion of left lower leg, subsequent encounter; E11.42 Type 2 diabetes mellitus with diabetic polyneuropathy; E11.51 Type 2 diabetes mellitus with diabetic peripheral angiopathy without gangrene; E11.22 Type 2 diabetes mellitus with diabetic chronic kidney disease; I12.9 Hypertensive chronic kidney disease with stage 1 through stage 4 chronic kidney disease, or unspecified chronic kidney disease; N18.3 Chronic kidney disease, stage 3 (moderate); E66.09 Other obesity due to excess calories; E03.9 Hypothyroidism, unspecified; G47.30 Sleep apnea, unspecified; I87.2 Venous insufficiency (chronic) (peripheral); I48.91 Unspecified atrial fibrillation; I27.20 Pulmonary hypertension, unspecified; J44.9 Chronic obstructive pulmonary disease, unspecified; M81.0 Age-related osteoporosis without current pathological fracture; M10.9 Gout, unspecified; F41.9 Anxiety disorder, unspecified; Z85.3 Personal history of malignant neoplasm of breast; Z96.653 Presence of artificial knee joint, bilateral; Z68.32 Body mass index [BMI] 32.0-32.9, adult; X58.XXXD Exposure to other specified factors, subsequent encounter ==

== ENCOUNTER → 2019-06-29 | Outpatient (CLI) | payer OTHER, BC | LOC: HYPER 13:33 | DX: E11.621 Type 2 diabetes mellitus with foot ulcer (principal); L97.512 Non-pressure chronic ulcer of other part of right foot with fat layer exposed; S81.812D Laceration without foreign body, left lower leg, subsequent encounter; I87.2 Venous insufficiency (chronic) (peripheral); E11.51 Type 2 diabetes mellitus with diabetic peripheral angiopathy without gangrene; E11.42 Type 2 diabetes mellitus with diabetic polyneuropathy; J44.9 Chronic obstructive pulmonary disease, unspecified; E11.22 Type 2 diabetes mellitus with diabetic chronic kidney disease; I12.9 Hypertensive chronic kidney disease with stage 1 through stage 4 chronic kidney disease, or unspecified chronic kidney disease; N18.3 Chronic kidney disease, stage 3 (moderate); I48.91 Unspecified atrial fibrillation; M81.0 Age-related osteoporosis without current pathological fracture; E03.9 Hypothyroidism, unspecified; M10.9 Gout, unspecified; E66.09 Other obesity due to excess calories; G47.30 Sleep apnea, unspecified; F41.9 Anxiety disorder, unspecified; Z68.32 Body mass index [BMI] 32.0-32.9, adult; Z85.3 Personal history of malignant neoplasm of breast; Z85.09 Personal history of malignant neoplasm of other digestive organs; Z96.653 Presence of artificial knee joint, bilateral; Z90.49 Acquired absence of other specified parts of digestive tract; Z79.01 Long term (current) use of anticoagulants; X58.XXXD Exposure to other specified factors, subsequent encounter ==

== ENCOUNTER → 2019-07-02 | Outpatient (CLI) | payer OTHER, BC ==
[~2019-07-02] VITALS: Ht 152.4 cm; Wt 61.2 kg
[2019-07-02 08:47] VITALS: BP 110/71
[2019-07-02 12:32] VITALS: BP 105/64
== END | disposition home or self-care (01) ==
LOC: CATH 08:09
DX: I87.1 Compression of vein (principal); I87.323 Chronic venous hypertension (idiopathic) with inflammation of bilateral lower extremity; M79.605 Pain in left leg; M79.604 Pain in right leg; R22.43 Localized swelling, mass and lump, lower limb, bilateral; I10 Essential (primary) hypertension; I48.91 Unspecified atrial fibrillation; E03.9 Hypothyroidism, unspecified; F41.9 Anxiety disorder, unspecified; K21.9 Gastro-esophageal reflux disease without esophagitis; Z98.890 Other specified postprocedural states; Z79.899 Other long term (current) drug therapy; Z90.49 Acquired absence of other specified parts of digestive tract; Z96.653 Presence of artificial knee joint, bilateral; Z79.01 Long term (current) use of anticoagulants; Z98.41 Cataract extraction status, right eye; Z98.42 Cataract extraction status, left eye

== ENCOUNTER → 2019-07-06 | Outpatient (CLI) | payer OTHER, BC | LOC: HYPER 14:29 | DX: E11.621 Type 2 diabetes mellitus with foot ulcer (principal); L97.512 Non-pressure chronic ulcer of other part of right foot with fat layer exposed; S81.812D Laceration without foreign body, left lower leg, subsequent encounter; I87.2 Venous insufficiency (chronic) (peripheral); E11.51 Type 2 diabetes mellitus with diabetic peripheral angiopathy without gangrene; E11.42 Type 2 diabetes mellitus with diabetic polyneuropathy; I10 Essential (primary) hypertension; I48.91 Unspecified atrial fibrillation; M81.0 Age-related osteoporosis without current pathological fracture; E03.9 Hypothyroidism, unspecified; M10.9 Gout, unspecified; E66.9 Obesity, unspecified; F41.9 Anxiety disorder, unspecified; G47.30 Sleep apnea, unspecified; Z85.3 Personal history of malignant neoplasm of breast; Z85.09 Personal history of malignant neoplasm of other digestive organs; Z96.653 Presence of artificial knee joint, bilateral; Z68.32 Body mass index [BMI] 32.0-32.9, adult; Z90.49 Acquired absence of other specified parts of digestive tract; Z79.01 Long term (current) use of anticoagulants; X58.XXXD Exposure to other specified factors, subsequent encounter ==

== ENCOUNTER → 2019-07-15 | Outpatient (CLI) | payer OTHER, BC ==
[~2019-07-15] VITALS: Ht 154.9 cm; Wt 65.0 kg
--- NOTE | ~2019-07-15 | HPC ---
[facility] [place] [address] PAIN MANAGEMENT CONSULTATION Name: RICHIE SANCHEZ Room #: REG EZEKIEL TadeoAgathaKajal.#: [id number] Admission: 07/15/19 Attend Phys: Russell Bartholomew MD Discharge: Date of : 33 Report #: [id number] THIS REPORT FOR: cc: Regis Wells MD, John L. MD Morgan, Richard L. MD ~ CC: Regis Bartholomew DATE OF SERVICE: 07/15/2019 Followup visit for refill of intrathecal infusion pump. The patient returns to pain clinic today for refill of her pump. She has significant pain in multiple locations. She complains bitterly of pain in her right foot and her right shoulder. She has open wounds, being followed by Dr. Gato Yeh. The shoulder is also painful from arthritis. 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 She also has chronic back pain, post-laminectomy syndrome, history of appendiceal cancer and chronic anxiety. These are her primary pain issues. She also suffers from other comorbidities including mitral valve regurgitation, hypothyroidism, gastroesophageal reflux disease, sleep apnea, hypertension. She follows with Dr. Regis Wells closely. Recently, she has had significant increases in peripheral edema. This was not noted to the same degree in previous exams. She now has 3-4+ pitting edema bilaterally in lower extremities. She has been seeing Dr. Cade for vascular procedures. Her pump does contain multiple medications including hydromorphone, bupivacaine, clonidine, and droperidol. I noted to her that hydromorphone and morphine, but not fentanyl to the same degree have been associated with peripheral edema of unknown etiology. PQRS REVIEW: Completed for Medicare: 1. She has generalized and diffuse osteoarthritis. 2. BMI is 27.1 and stable. 3. Vital signs: Blood pressure 105/65, heart rate 82, respirations 14, O2 sat 100. 4. Pain intensity 10. 5. She is a fall risk and needs help standing and walking. She is in a wheelchair today. 6. She is on the blood thinner, Xarelto. 7. Dr. Wells treats her for hypertension. I reviewed those medications as well as all other medications and they were reconciled from her record today. [address] [address] PAIN MANAGEMENT CONSULTATION Name: SANCHEZRICHIE Room #: REG [facility].#: [id number] Admission: 07/15/19 Attend Phys: Russell Bartholomew MD Discharge: Date of : 33 Report #: [id number] 8. She is on an opioid agreement, but receives medication only through her pump. I provided no oral opioids. 9. She completed an opioid risk tool assessment score is 1 suggesting low risk of addiction. 10. She denies use of tobacco, drinks alcohol occasionally in social setting. IMPRESSION: Chronic intractable pain with intrathecal infusion. PLAN: 1. Refill intrathecal pump today. 2. Order medicine immediately for transition from hydromorphone to fentanyl to see if we can moderate her edema. PROCEDURE: Skin prepped with ChloraPrep and a 20-gauge non-coring needle advanced in the pump. Old medication removed and discarded. Pump was refilled then with her medication combination and reprogramming session was performed without adjustments. Her daily dose of hydromorphone is 4 mg. I will begin her on roughly 125 mcg fentanyl a day. Orders sent. Reprogramming information was checked and a copy sent to the patient. Followup visit planned in 1-2 weeks for refill of her intrathecal pump with new medication. By: [id number] Russell Bartholomew MD /nt
[2019-07-15 14:16] VITALS: BP 106/65
--- NOTE | 2019-07-15 14:47 | NUR ---
Pain Clinic Assessment: 1. History of Osteoarthritis: GENERALIZED History of Rheumatoid Arthritis: Not Applicable 2. Height: 5 ft. 1 in. 154.9 cm. Weight: 143.4 lb. oz. 65.046 kg. Patient's BMI: 27.1 3. Vital Signs: BP: 106/65 Pulse: 82 Resp: 14 Temp: 02 Sat: 100 ECG Mon: 4. Pain Intensity: 3 5. Fall Risk: Dizziness: N Needs help standing or walking: Y Fallen in the last 3 months: Y Fall risk comments: \ 6. Patient on Blood Thinner: xarelto 7. History of Hypertension: Y 8. Opioid Therapy greater than 6 weeks: N Opiate Contract Signed: 9. Risk Assessment Tool Provided: 1-LOW 10. Functional Assessment Tool: 11. Recreational Drug Use: Never Drug Type: Tobacco Use: Never Smoker Tobacco Type: Amount or Packs/day: How Many Years: Alcohol Use: Yes Frequency: Quant:
== END | disposition home or self-care (01) ==
LOC: PAIN 13:57
DX: Z45.1 Encounter for adjustment and management of infusion pump (principal); G89.29 Other chronic pain; M54.9 Dorsalgia, unspecified; M96.1 Postlaminectomy syndrome, not elsewhere classified; F41.8 Other specified anxiety disorders; I10 Essential (primary) hypertension; E03.9 Hypothyroidism, unspecified; K21.9 Gastro-esophageal reflux disease without esophagitis; M19.90 Unspecified osteoarthritis, unspecified site; G47.30 Sleep apnea, unspecified; Z98.890 Other specified postprocedural states; Z79.899 Other long term (current) drug therapy; Z85.09 Personal history of malignant neoplasm of other digestive organs; Z96.653 Presence of artificial knee joint, bilateral

== ENCOUNTER → 2019-07-20 | Outpatient (CLI) | payer OTHER, BC | LOC: HYPER 13:51 | DX: E11.621 Type 2 diabetes mellitus with foot ulcer (principal); L97.512 Non-pressure chronic ulcer of other part of right foot with fat layer exposed; I87.2 Venous insufficiency (chronic) (peripheral); E11.51 Type 2 diabetes mellitus with diabetic peripheral angiopathy without gangrene; E11.42 Type 2 diabetes mellitus with diabetic polyneuropathy; E11.22 Type 2 diabetes mellitus with diabetic chronic kidney disease; I12.9 Hypertensive chronic kidney disease with stage 1 through stage 4 chronic kidney disease, or unspecified chronic kidney disease; N18.3 Chronic kidney disease, stage 3 (moderate); I48.91 Unspecified atrial fibrillation; J44.9 Chronic obstructive pulmonary disease, unspecified; G47.30 Sleep apnea, unspecified; M81.0 Age-related osteoporosis without current pathological fracture; E03.9 Hypothyroidism, unspecified; M10.9 Gout, unspecified; E66.09 Other obesity due to excess calories; F41.9 Anxiety disorder, unspecified; Z68.32 Body mass index [BMI] 32.0-32.9, adult; Z85.3 Personal history of malignant neoplasm of breast; Z85.09 Personal history of malignant neoplasm of other digestive organs; Z96.653 Presence of artificial knee joint, bilateral; Z90.49 Acquired absence of other specified parts of digestive tract; Z79.01 Long term (current) use of anticoagulants ==

== ENCOUNTER → 2019-07-23 | Outpatient (CLI) | payer OTHER, BC | LOC: SJCVCIMAG 11:34 → SJCVC 11:34 | DX: I08.1 Rheumatic disorders of both mitral and tricuspid valves (principal); R94.31 Abnormal electrocardiogram [ECG] [EKG]; I11.9 Hypertensive heart disease without heart failure; I48.19 Other persistent atrial fibrillation; E78.00 Pure hypercholesterolemia, unspecified; D68.59 Other primary thrombophilia; R60.9 Edema, unspecified; I27.20 Pulmonary hypertension, unspecified; E03.9 Hypothyroidism, unspecified; Z79.899 Other long term (current) drug therapy ==

== ENCOUNTER → 2019-07-28 | Outpatient (CLI) | payer OTHER, BC ==
[~2019-07-28] VITALS: Ht 152.4 cm; Wt 65.3 kg
[~2019-07-28] MED LIST changes: +OXYCODONE-ACET1 EAC2 PO
[2019-07-28 12:46] VITALS: BP 128/73
== END | disposition home or self-care (01) ==
LOC: CATH 11:22
DX: I87.323 Chronic venous hypertension (idiopathic) with inflammation of bilateral lower extremity (principal); I87.1 Compression of vein; M79.604 Pain in right leg; M79.605 Pain in left leg; R22.43 Localized swelling, mass and lump, lower limb, bilateral; I10 Essential (primary) hypertension; I48.91 Unspecified atrial fibrillation; E03.9 Hypothyroidism, unspecified; F41.9 Anxiety disorder, unspecified; K21.9 Gastro-esophageal reflux disease without esophagitis; Z90.49 Acquired absence of other specified parts of digestive tract; Z96.653 Presence of artificial knee joint, bilateral; Z98.890 Other specified postprocedural states; Z79.899 Other long term (current) drug therapy; Z79.01 Long term (current) use of anticoagulants; Z88.8 Allergy status to other drugs, medicaments and biological substances; Z88.0 Allergy status to penicillin

== ENCOUNTER → 2019-08-02 | Outpatient (CLI) | payer OTHER, BC ==
[~2019-08-02] VITALS: Ht 154.9 cm; Wt 62.3 kg
[~2019-08-02] MED LIST changes: -OXYCODONE-ACET1 EAC2 PO
[2019-08-02 11:19] VITALS: BP 103/66
--- NOTE | 2019-08-02 11:30 | NUR ---
Pain Clinic Assessment: 1. History of Osteoarthritis: GENERALIZED History of Rheumatoid Arthritis: Not Applicable 2. Height: 5 ft. 1 in. 154.9 cm. Weight: 137.4 lb. oz. 62.324 kg. Patient's BMI: 26.0 3. Vital Signs: BP: 103/66 Pulse: 83 Resp: 16 Temp: 02 Sat: 98 ECG Mon: 4. Pain Intensity: 5 5. Fall Risk: Dizziness: Y Needs help standing or walking: Y Fallen in the last 3 months: N Fall risk comments: \ 6. Patient on Blood Thinner: xarelto 7. History of Hypertension: Y 8. Opioid Therapy greater than 6 weeks: N Opiate Contract Signed: 9. Risk Assessment Tool Provided: 1-LOW 10. Functional Assessment Tool: 11. Recreational Drug Use: Never Drug Type: Tobacco Use: Never Smoker Tobacco Type: Amount or Packs/day: How Many Years: Alcohol Use: No Frequency: Quant:
--- NOTE | 2019-08-03 18:18 | HPC ---
[facility] [place] [address] [place] [address] PAIN MANAGEMENT CONSULTATION Name: RICHIE SANCHEZ Room #: REG EZEIKEL Cata.#: [id number] Admission: 08/02/19 Attend Phys: Russell Bartholomew MD Discharge: Date of : 34 Report #: [id number] THIS REPORT FOR: cc: Lou Wells MD, John L. MD Morgan, Richard L. MD ~ CC: LOU Bartholomew DATE OF SERVICE: 08/02/2019 Followup visit for refill, reprogramming, and change of intrathecal infusion pump medications. HISTORY OF PRESENT ILLNESS: The patient was seen in consultation for a pump refill recently. I noted on 07/15/2019 that she had 4+ pitting edema. I discussed changing out the hydromorphone in her intrathecal infusion for fentanyl. She had hydromorphone in her pump for some time, but there are some incidents of peripheral edema associated with morphine and hydromorphone that we do not see with fentanyl. Reason for this edema which occurs in about 10-15% of patients is unknown. It often times improves with the transition to fentanyl and she is here today for that transition. We may need to adjust her dose upwards. We will start a bit lower for an initial dose. This often times difficult to make calculations when making these adjustments, so we will begin conservatively. We can always go up. PROCEDURE: Refill and reprogramming of intrathecal infusion pump with change of medication. After informed consent, skin was prepped with ChloraPrep. A 22-gauge non-coring needle advanced in pump. Old medication removed and discarded per protocol. Pump was refilled with bupivacaine, clonidine, droperidol and fentanyl and reprogramming session was performed. Her daily dose will be fentanyl 125 mcg, clonidine 13.8 mcg, droperidol 9.7, bupivacaine 2.7. This should be a reasonable transition given her 3.9 mg of hydromorphone currently infusing. Fentanyl can be a bit more segmental in its pain relief because of its lipophilic properties, we will have to see how she does. She should begin receiving her new medication in roughly 64 hours, so sometime on or Friday we should start to see how her pain responds. I would expect another 5-7 days would tell whether or not she has received benefit from the standpoint of edema. We will follow up. <ELECTRONICALLY SIGNED> By: Russell Bartholomew MD 08/03/19 1818 1626 [id number] Russell Bartholomew MD /nt
== END | disposition home or self-care (01) ==
LOC: PAIN 07-29 06:58
DX: Z45.1 Encounter for adjustment and management of infusion pump (principal); G89.29 Other chronic pain; I48.91 Unspecified atrial fibrillation; Z98.890 Other specified postprocedural states; Z79.01 Long term (current) use of anticoagulants; Z88.0 Allergy status to penicillin; Z88.8 Allergy status to other drugs, medicaments and biological substances; Z79.891 Long term (current) use of opiate analgesic

== ENCOUNTER → 2019-08-17 | Outpatient (CLI) | payer OTHER, BC ==
[~2019-08-17] VITALS: Ht 154.9 cm; Wt 59.4 kg
[~2019-08-17] MED LIST changes: +OXYCODONE-ACET1 EAC2 PO
--- NOTE | ~2019-08-17 | HPC ---
[facility] [place] [address] [place] [address] PAIN MANAGEMENT CONSULTATION Name: RICHIE SANCHEZ Room #: REG EZEKIEL TadeoAgathaKajal.#: [id number] Admission: 08/17/19 Attend Phys: Russell Bartholomew MD Discharge: Date of : 34 Report #: [id number] THIS REPORT FOR: cc: Regis Wells MD, John L. MD Morgan, Richard L. MD ~ CC: Regis Bartholomew DATE OF SERVICE: 08/17/2019 Followup visit to change intrathecal pump medication. The patient returns to clinic today to remove bupivacaine from a combination of medicines. I have also over the last month transitioned her off of hydromorphone to fentanyl due to substantial bilateral lower extremity edema. Her response to this point has been modest, but she is somewhat better. In the transition, her bupivacaine dose slightly increased. She complained of weakness. She is here today to remove the bupivacaine from her infusate. She will then be on just 3 medications; the opioid fentanyl, droperidol for nausea and a small dose of clonidine to help with neuropathic pain. PROCEDURE: Refill and reprogram with drug change of intrathecal infusion pump. After informed consent, the skin was prepped with ChloraPrep. A 22-gauge non-coring needle advanced in the pump. Old medication removed and discarded. Pump was refilled with fentanyl, clonidine, droperidol and a reprogramming session was performed. A bridge bolus was calculated at roughly 26 hours. We should have a general idea of her response by 08/19/2019 through 08/22/2019 as bupivacaine will leave her system. Her daily dose will be fentanyl 200 mcg, clonidine ____ mcg, droperidol ____ mcg. Her next refill is scheduled for 1 month. I have ordered only one month of medicine as we are making some adjustments. Followup visit scheduled towards the end of August. By: [id number] Russell Bartholomew MD /nt
[2019-08-17 11:08] VITALS: BP 111/69
--- NOTE | 2019-08-17 11:35 | NUR ---
Pain Clinic Assessment: 1. History of Osteoarthritis: GENERALIZED History of Rheumatoid Arthritis: Not Applicable 2. Height: 5 ft. 1 in. 154.9 cm. Weight: 131.0 lb. oz. 59.421 kg. Patient's BMI: 24.8 3. Vital Signs: BP: 111/69 Pulse: 103 Resp: 18 Temp: 02 Sat: 100 ECG Mon: 4. Pain Intensity: 3 5. Fall Risk: Dizziness: Y Needs help standing or walking: Y Fallen in the last 3 months: N Fall risk comments: \ 6. Patient on Blood Thinner: xarelto 7. History of Hypertension: Y 8. Opioid Therapy greater than 6 weeks: N Opiate Contract Signed: 9. Risk Assessment Tool Provided: 1-LOW 10. Functional Assessment Tool: 11. Recreational Drug Use: Never Drug Type: Tobacco Use: Never Smoker Tobacco Type: Amount or Packs/day: How Many Years: Alcohol Use: No Frequency: Quant:
== END | disposition home or self-care (01) ==
LOC: PAIN 06:53
DX: Z45.1 Encounter for adjustment and management of infusion pump (principal); G89.29 Other chronic pain; I48.91 Unspecified atrial fibrillation; Z98.890 Other specified postprocedural states; Z79.899 Other long term (current) drug therapy; Z79.01 Long term (current) use of anticoagulants

== ENCOUNTER → 2019-08-24 | Outpatient (CLI) | payer OTHER, BC | LOC: SJCVC 13:36 | PROVIDERS: ATTEND Internal Medicine Cardiovascular Disease | DX: R94.31 Abnormal electrocardiogram [ECG] [EKG] (principal); I48.0 Paroxysmal atrial fibrillation; I11.0 Hypertensive heart disease with heart failure; I50.30 Unspecified diastolic (congestive) heart failure; I87.2 Venous insufficiency (chronic) (peripheral); D68.59 Other primary thrombophilia; I27.20 Pulmonary hypertension, unspecified; Z90.49 Acquired absence of other specified parts of digestive tract; Z79.899 Other long term (current) drug therapy; Z87.891 Personal history of nicotine dependence ==

== ENCOUNTER → 2019-09-06 | Outpatient (CLI) | payer OTHER, BC | LOC: HYPER 12:34 | PROVIDERS: ATTEND Emergency Medicine | DX: E11.621 Type 2 diabetes mellitus with foot ulcer (principal); L97.512 Non-pressure chronic ulcer of other part of right foot with fat layer exposed; I87.2 Venous insufficiency (chronic) (peripheral); E11.40 Type 2 diabetes mellitus with diabetic neuropathy, unspecified; E11.51 Type 2 diabetes mellitus with diabetic peripheral angiopathy without gangrene; E11.22 Type 2 diabetes mellitus with diabetic chronic kidney disease; I12.9 Hypertensive chronic kidney disease with stage 1 through stage 4 chronic kidney disease, or unspecified chronic kidney disease; N18.3 Chronic kidney disease, stage 3 (moderate); J44.9 Chronic obstructive pulmonary disease, unspecified; I48.91 Unspecified atrial fibrillation; M81.0 Age-related osteoporosis without current pathological fracture; E03.9 Hypothyroidism, unspecified; M10.9 Gout, unspecified; E66.09 Other obesity due to excess calories; G47.30 Sleep apnea, unspecified; F41.9 Anxiety disorder, unspecified; Z85.3 Personal history of malignant neoplasm of breast; Z68.32 Body mass index [BMI] 32.0-32.9, adult; Z85.09 Personal history of malignant neoplasm of other digestive organs; Z96.653 Presence of artificial knee joint, bilateral; Z90.49 Acquired absence of other specified parts of digestive tract; Z79.01 Long term (current) use of anticoagulants ==

== ENCOUNTER → 2019-09-16 | Outpatient (CLI) | payer OTHER, BC ==
[~2019-09-16] VITALS: Ht 154.9 cm; Wt 64.2 kg
[2019-09-16 10:54] VITALS: BP 99/55
--- NOTE | 2019-09-16 11:00 | NUR ---
Pain Clinic Assessment: 1. History of Osteoarthritis: GENERALIZED History of Rheumatoid Arthritis: Not Applicable 2. Height: 5 ft. 1 in. 154.9 cm. Weight: 141.6 lb. oz. 64.229 kg. Patient's BMI: 26.8 3. Vital Signs: BP: 99/55 Pulse: 78 Resp: 18 Temp: 02 Sat: 96 ECG Mon: 4. Pain Intensity: 6-8 5. Fall Risk: Dizziness: Y Needs help standing or walking: Y Fallen in the last 3 months: N Fall risk comments: \ 6. Patient on Blood Thinner: xarelto 7. History of Hypertension: Y 8. Opioid Therapy greater than 6 weeks: N Opiate Contract Signed: 9. Risk Assessment Tool Provided: 1-LOW 10. Functional Assessment Tool: 11. Recreational Drug Use: Never Drug Type: Tobacco Use: Never Smoker Tobacco Type: Amount or Packs/day: How Many Years: Alcohol Use: No Frequency: Quant:
--- NOTE | 2019-09-17 15:51 | HPC ---
[facility] [place] [address] [address] PAIN MANAGEMENT CONSULTATION Name: RICHIE SANCHEZ Room #: REG EZEKIEL Agatha.#: [id number] Admission: 09/16/19 Attend Phys: Russell Bartholomew MD Discharge: Date of : 34 Report #: [id number] THIS REPORT FOR: cc: Regis Wells MD, John L. MD Morgan, Richard L. MD ~ CC: Regis Bartholomew DATE OF SERVICE: 09/16/2019 Followup visit for chronic pain. The patient is here today for refill of her intrathecal infusion pump. She also complains bitterly of pain in her right shoulder. She has nausea, but it has not been continuous. It just started yesterday. I do not believe it is related to her pump medicines because the timing does not fit. After weeks of trying to treat her edema by transitioning her off of hydromorphone and her intrathecal pump to fentanyl, she presents today with 2+ to 3+ bilateral lower extremity edema. I am not going to mess around anymore with her pump trying to treat this edema. I have done my best to eliminate it and I do not think it is directly related to her intrathecal pump. She was better for a portion of time. I am sure it is multifactorial. She has intermittent nausea. Today, she is nauseated, but she was not nauseated at all last week or this weekend. That also leads against the intrathecal pump as the underlying cause. Her blood pressure is down a little bit. When she gets dehydrated and intravascular fluid moves into the interstitial, I think this also seemed to trigger nausea and orthostasis. Today, she reports that her pain is mostly in her shoulder. No other pain generators are mentioned. She scores it as a 3/10 at its lowest level. At its highest, it can be an 8/10. PQRS: Positive for spondylosis and osteoarthritis. Her BMI is 26.8, her blood pressure 99/55, heart rate 78, respirations 18. Pain intensity 6-8. She has dizziness and needs help standing or walking and is clear fall risk. We discussed careful movements and watching for lightheadedness and dizziness when she first stands. She is on Xarelto, has a history of hypertension and takes a small amount of an opioid. She is on an opioid agreement signed years ago. Her opioid risk score is 1. She is at low risk for addiction by this tool. Recreational drug use, tobacco use and alcohol use are denied. IMPRESSION: 1. Chronic intractable pain, post-laminectomy. Low back [place] [address] PAIN MANAGEMENT CONSULTATION Name: RICHIE SANCHEZ [facility] [id number] Admission: 09/16/19 Attend Phys: Russell Bartholomew MD Discharge: Date of : 34 Report #: [id number] good and has been controlled with her intrathecal pump. 2. Osteoarthritis with severe pain in the right shoulder. 3. Atrial fibrillation, on anticoagulation therapy. 4. Management of intrathecal infusion pump. RECOMMENDATION: Shoulder injection may be a benefit. I have elected to use dexamethasone today and will use a total of 4 mg along with 0.5% bupivacaine. Dexamethasone was used in the OR to help with nausea and appears to be reasonably safe. Potential benefits and risks of the injection were discussed. Refill of intrathecal infusion pump to follow. PROCEDURE #1: Right shoulder injection. After informed consent, the skin was prepped with ChloraPrep and a 25-gauge needle was gently advanced into the shoulder joint. After negative aspiration, I injected a total of 4 mL of 0.5% bupivacaine mixed with 4 mg of dexamethasone. Needle was removed. PROCEDURE #2: Refill reprogram of intrathecal infusion pump. After informed consent, the skin was prepped with ChloraPrep. A 22-gauge non-coring needle advanced in pump. Old medication removed and discarded. Pump was refilled with a combination of fentanyl, clonidine and droperidol. I did change the concentrations but not the dose. She will continue receiving fentanyl 225 mcg per day, clonidine 18.7 mcg a day and droperidol 18.7 mcg per day. Bridge bolus was programmed into the intrathecal pump and information was double checked and I signed the session report before she was discharged and a copy was given to her. Followup visit is planned in late October. Oral medications were renewed, hydrocodone 5/325 one tablet up to twice a day as needed. She will carefully safeguard these medications per terms of written opioid agreement. <ELECTRONICALLY SIGNED> By: Russell Bartholomew MD 09/17/19 1551 [id number] Russell Bartholomew MD /nt
== END | disposition home or self-care (01) ==
LOC: PAIN 08:56
PROVIDERS: ATTEND Anesthesiology Pain Medicine
DX: G89.29 Other chronic pain (principal); M19.011 Primary osteoarthritis, right shoulder; I48.91 Unspecified atrial fibrillation; Z79.899 Other long term (current) drug therapy

== ENCOUNTER → 2019-09-30 | Outpatient (CLI) | payer OTHER, BC ==
[~2019-09-30] VITALS: Ht 165.1 cm; Wt 58.5 kg
[2019-09-30 12:01] VITALS: BP 83/49
== END | disposition home or self-care (01) ==
LOC: CATH 10:18
PROVIDERS: ATTEND Nuclear Medicine Nuclear Cardiology
DX: I87.321 Chronic venous hypertension (idiopathic) with inflammation of right lower extremity (principal); M79.604 Pain in right leg; R22.9 Localized swelling, mass and lump, unspecified; I10 Essential (primary) hypertension; I48.91 Unspecified atrial fibrillation; E03.9 Hypothyroidism, unspecified; F41.9 Anxiety disorder, unspecified; K21.9 Gastro-esophageal reflux disease without esophagitis; Z90.49 Acquired absence of other specified parts of digestive tract; Z98.890 Other specified postprocedural states; Z79.899 Other long term (current) drug therapy; Z85.09 Personal history of malignant neoplasm of other digestive organs; Z96.653 Presence of artificial knee joint, bilateral; Z98.41 Cataract extraction status, right eye; Z98.42 Cataract extraction status, left eye; Z79.01 Long term (current) use of anticoagulants

== ENCOUNTER → 2019-10-20 | Outpatient (CLI) | payer OTHER, BC | LOC: HYPER 09:40 | PROVIDERS: ATTEND Emergency Medicine | DX: E11.622 Type 2 diabetes mellitus with other skin ulcer (principal); L97.821 Non-pressure chronic ulcer of other part of left lower leg limited to breakdown of skin; E11.621 Type 2 diabetes mellitus with foot ulcer; L97.512 Non-pressure chronic ulcer of other part of right foot with fat layer exposed; L84 Corns and callosities; E11.51 Type 2 diabetes mellitus with diabetic peripheral angiopathy without gangrene; E11.42 Type 2 diabetes mellitus with diabetic polyneuropathy; E11.22 Type 2 diabetes mellitus with diabetic chronic kidney disease; I12.9 Hypertensive chronic kidney disease with stage 1 through stage 4 chronic kidney disease, or unspecified chronic kidney disease; N18.3 Chronic kidney disease, stage 3 (moderate); E66.09 Other obesity due to excess calories; E03.9 Hypothyroidism, unspecified; E66.9 Obesity, unspecified; G47.30 Sleep apnea, unspecified; I87.2 Venous insufficiency (chronic) (peripheral); I48.91 Unspecified atrial fibrillation; I27.20 Pulmonary hypertension, unspecified; J44.9 Chronic obstructive pulmonary disease, unspecified; M81.0 Age-related osteoporosis without current pathological fracture; M10.9 Gout, unspecified; F41.9 Anxiety disorder, unspecified; Z96.653 Presence of artificial knee joint, bilateral; Z85.3 Personal history of malignant neoplasm of breast; Z85.89 Personal history of malignant neoplasm of other organs and systems; Z68.32 Body mass index [BMI] 32.0-32.9, adult ==

== ENCOUNTER → 2019-10-21 | Outpatient (CLI) | payer OTHER, BC ==
[~2019-10-21] VITALS: Ht 152.4 cm; Wt 63.1 kg
--- NOTE | ~2019-10-21 | HPC ---
[facility] [place] [address] [address] PAIN MANAGEMENT CONSULTATION Name: RICHIE SANCHEZ Room #: REG EZEKIEL [facility].#: [id number] Admission: 10/21/19 Attend Phys: Russell Bartholomew MD Discharge: Date of : 34 Report #: [id number] THIS REPORT FOR: cc: Regis Wells MD, John L. MD Morgan, Richard L. MD ~ CC: Regis Bartholomew DATE OF SERVICE: 10/21/2019 Followup visit for chronic intractable pain, low back, shoulder and osteoarthritis. Management of intrathecal infusion pump. The patient returns to pain clinic today for refill of intrathecal pump. She is doing okay today on her current dose of fentanyl, clonidine, droperidol and I do not intend to increase her dose. She denies nausea. I think we found a manageable level for her. She has completed her treatments with Dr. Cade and I have completed the transition off of hydromorphone. It was a rough go. We had worked to titrate the dose of her medication over a few weeks with some home visits. Today, she scores her pain as a 4-5, that is not too bad for her. On PQRS review, she has generalized osteoarthritis in multiple joints. Her BMI is stable at 27. Her blood pressure 101/59, heart rate 80, respirations 14, O2 sat 100. She needs help standing, walking and is a fall risk. She has fallen once in the last few weeks. She is on Xarelto, so there is great risk with her falling. We discussed the importance of using a walker, a cane or someone's arm if she needs to get to and from places where she cannot support herself. She is not currently taking an oral opioid. Her functional assessment score is 47, not too bad given her degree of debility. She denies use of tobacco and alcohol. IMPRESSION: 1. Chronic intractable pain, post-laminectomy syndrome. 2. Osteoarthritis. Pain in her right shoulder has been much improved since injection by Dr. Wells. 3. Atrial fibrillation. 4. Management of intrathecal infusion pump with refill and reprogramming. Skin was prepped with ChloraPrep. A 22-gauge non-coring needle advanced into the intrathecal pump. Old medication removed and discarded per protocol. Pump was then refilled and reprogrammed. Daily dose will be fentanyl 225 mcg per day, clonidine 18.7 and droperidol 18.7 mcg per day. I plan to continue this dose, may adjust it slightly upwards if her pain increases. Followup visit planned in the pain clinic now in about 40 days. We will [address] [address] PAIN MANAGEMENT CONSULTATION Name: LAURARICHIE E Room #: REG EZEKIEL [facility].#: [id number] Admission: 10/21/19 Attend Phys: Russell Bartholomew MD Discharge: Date of : 34 Report #: [id number] concentrate her medicines so she does not have to come this frequently at next visit. By: 1642 [id number] Russell Bartholomew MD /nt
[2019-10-21 13:37] VITALS: BP 101/59
--- NOTE | 2019-10-21 14:05 | NUR ---
Pain Clinic Assessment: 1. History of Osteoarthritis: GENERALIZED History of Rheumatoid Arthritis: Not Applicable 2. Height: 5 ft. 0 in. 152.4 cm. Weight: 139.2 lb. oz. 63.141 kg. Patient's BMI: 27.2 3. Vital Signs: BP: 101/59 Pulse: 80 Resp: 14 Temp: 02 Sat: 100 ECG Mon: 4. Pain Intensity: 4-5 5. Fall Risk: Dizziness: Y Needs help standing or walking: Y Fallen in the last 3 months: Y Fall risk comments: \ 6. Patient on Blood Thinner: xarelto 7. History of Hypertension: Y 8. Opioid Therapy greater than 6 weeks: N Opiate Contract Signed: 9. Risk Assessment Tool Provided: 1-LOW 10. Functional Assessment Tool: 11. Recreational Drug Use: Never Drug Type: Tobacco Use: Never Smoker Tobacco Type: Amount or Packs/day: How Many Years: Alcohol Use: No Frequency: Quant:
== END | disposition home or self-care (01) ==
LOC: PAIN 06:55
PROVIDERS: ATTEND Anesthesiology Pain Medicine
DX: M54.5 Low back pain (principal); G89.29 Other chronic pain; M19.90 Unspecified osteoarthritis, unspecified site; M25.511 Pain in right shoulder; I48.91 Unspecified atrial fibrillation; Z79.899 Other long term (current) drug therapy

== ENCOUNTER → 2019-11-25 | Outpatient (CLI) | payer OTHER, BC ==
[~2019-11-25] VITALS: Ht 152.4 cm; Wt 56.4 kg
[2019-11-25 12:27] VITALS: BP 109/69
--- NOTE | 2019-11-25 12:44 | NUR ---
Pain Clinic Assessment: 1. History of Osteoarthritis: GENERALIZED History of Rheumatoid Arthritis: Not Applicable 2. Height: 5 ft. 0 in. 152.4 cm. Weight: 124.4 lb. oz. 56.427 kg. Patient's BMI: 24.3 3. Vital Signs: BP: 109/69 Pulse: 84 Resp: 20 Temp: 02 Sat: 100 ECG Mon: 4. Pain Intensity: 6 5. Fall Risk: Dizziness: Y Needs help standing or walking: Y Fallen in the last 3 months: N Fall risk comments: \ 6. Patient on Blood Thinner: xarelto 7. History of Hypertension: Y 8. Opioid Therapy greater than 6 weeks: N Opiate Contract Signed: 9. Risk Assessment Tool Provided: 1-LOW 10. Functional Assessment Tool: 11. Recreational Drug Use: Never Drug Type: Tobacco Use: Never Smoker Tobacco Type: Amount or Packs/day: How Many Years: Alcohol Use: No Frequency: Quant:
--- NOTE | 2019-12-16 14:22 | HPC ---
[facility] [place] [address] PAIN MANAGEMENT CONSULTATION Name: RICHIE SANCHEZ Room #: REG EZEKIEL [facility].#: [id number] Admission: 11/25/19 Attend Phys: Russell Bartholomew MD Discharge: Date of : 33 Report #: [id number] THIS REPORT FOR: cc: Regis Wells MD, John L. MD Morgan, Richard L. MD ~ CC: Regis Bartholomew DATE OF SERVICE: 11/25/2019 Followup visit for chronic pain and refill of intrathecal infusion pump with reprogramming. The patient returns to pain clinic today for refill of her intrathecal infusion pump. She is doing well! She has lost substantial fluid and I think that we should take some credit for that by transitioning off of hydromorphone to fentanyl. It is also due to the excellent care she has received from her primary care physician, Dr. Regis Wells, has manage her medicines carefully. She has number of medications, which have been reviewed and reconciled. Her multiple comorbidities have been reviewed including mitral valve regurgitation, Xarelto for atrial fibrillation, hypothyroidism, anxiety, hypertension, sleep apnea. She has had several skeletal surgeries including two laminectomies, bilateral total knee replacement. __ the shape that she is in I think she is doing fairly well and is in a good spot. She scores her pain as a 6/10. PQRS: Positive for diffuse osteoarthritis with a BMI of 24.3, blood pressure 109/69, heart rate 84, pain intensity 6. She has not fallen in the last 3 months. She remains on her Xarelto and is also under treatment for hypertension by Dr. Wells. Her risk assessment tool score is 1 for addiction due to medication, considered low risk for addiction. She denies use of tobacco and alcohol. IMPRESSION: 1. Chronic intractable pain related to multiple joint arthritis and spondylosis. 2. Management of intrathecal infusion pump with reprogramming and refill. 3. Congestive heart failure symptoms. 4. Atrial fibrillation. PROCEDURE: Skin was prepped with ChloraPrep. A 22-gauge non-coring needle advanced in the pump. Old medication removed and discarded per protocol. Pump refilled with combination of clonidine, droperidol and fentanyl. Higher concentrations were instilled and a bridge bolus was required. A reprogramming [address] [address] PAIN MANAGEMENT CONSULTATION Name: RICHIE SANCHEZ Room #: REG [facility] [id number] Admission: 11/25/19 Attend Phys: Russell Bartholomew MD Discharge: Date of : 33 Report #: [id number] session was provided and checked by myself and the nurse. She has about 15 months remaining on this pump, so she will need to have a pump replacement sometime in 2020. Her next refill now scheduled for 02/11, a longer refill interval based upon the concentration, changes in her pump. She will follow up with Dr. Wells and myself in 3 months. <ELECTRONICALLY SIGNED> By: Russell Bartholomew MD 12/16/19 1422 1429 1542 Russell Bartholomew MD /nt
== END | disposition home or self-care (01) ==
LOC: PAIN 06:54
PROVIDERS: ATTEND Anesthesiology Pain Medicine
DX: G89.29 Other chronic pain (principal); M19.90 Unspecified osteoarthritis, unspecified site; I50.9 Heart failure, unspecified; I48.91 Unspecified atrial fibrillation; M47.9 Spondylosis, unspecified; Z79.899 Other long term (current) drug therapy

== ENCOUNTER → 2019-12-21 | Outpatient (CLI) | payer OTHER, BC | LOC: SJCVCIMAG 06:36 | PROVIDERS: ATTEND Nuclear Medicine Nuclear Cardiology | DX: I87.2 Venous insufficiency (chronic) (peripheral) (principal); I73.9 Peripheral vascular disease, unspecified; M79.89 Other specified soft tissue disorders; I48.19 Other persistent atrial fibrillation; E78.00 Pure hypercholesterolemia, unspecified; I10 Essential (primary) hypertension; I27.29 Other secondary pulmonary hypertension; Z79.899 Other long term (current) drug therapy; Z87.891 Personal history of nicotine dependence ==

== ENCOUNTER → 2020-01-18 | Outpatient (CLI) | payer OTHER, BC | LOC: SJCVC 14:34 | PROVIDERS: ATTEND Internal Medicine Cardiovascular Disease | DX: R94.31 Abnormal electrocardiogram [ECG] [EKG] (principal); I48.0 Paroxysmal atrial fibrillation; I10 Essential (primary) hypertension; I38 Endocarditis, valve unspecified; I87.2 Venous insufficiency (chronic) (peripheral); D68.59 Other primary thrombophilia ==

== ENCOUNTER → 2020-01-27 | Outpatient (CLI) | payer OTHER, BC | LOC: HYPER 09:57 | PROVIDERS: ATTEND Emergency Medicine | DX: S81.811D Laceration without foreign body, right lower leg, subsequent encounter (principal); E11.622 Type 2 diabetes mellitus with other skin ulcer; L97.821 Non-pressure chronic ulcer of other part of left lower leg limited to breakdown of skin; L84 Corns and callosities; R60.0 Localized edema; E11.42 Type 2 diabetes mellitus with diabetic polyneuropathy; E11.51 Type 2 diabetes mellitus with diabetic peripheral angiopathy without gangrene; E11.22 Type 2 diabetes mellitus with diabetic chronic kidney disease; I12.9 Hypertensive chronic kidney disease with stage 1 through stage 4 chronic kidney disease, or unspecified chronic kidney disease; N18.30 Chronic kidney disease, stage 3 unspecified; E66.09 Other obesity due to excess calories; E03.9 Hypothyroidism, unspecified; G47.30 Sleep apnea, unspecified; I87.2 Venous insufficiency (chronic) (peripheral); I27.20 Pulmonary hypertension, unspecified; I48.91 Unspecified atrial fibrillation; J44.9 Chronic obstructive pulmonary disease, unspecified; M81.0 Age-related osteoporosis without current pathological fracture; M10.9 Gout, unspecified; F41.9 Anxiety disorder, unspecified; Z85.09 Personal history of malignant neoplasm of other digestive organs; Z68.32 Body mass index [BMI] 32.0-32.9, adult; Z96.653 Presence of artificial knee joint, bilateral; Z85.3 Personal history of malignant neoplasm of breast; X58.XXXD Exposure to other specified factors, subsequent encounter ==

== ENCOUNTER → 2020-02-07 | Outpatient (CLI) | payer OTHER, BC ==
[~2020-02-07] VITALS: Ht 152.4 cm; Wt 61.2 kg
[2020-02-07 13:58] VITALS: BP 123/80
--- NOTE | 2020-02-07 14:40 | NUR ---
Pain Clinic Assessment: 1. History of Osteoarthritis: GENERALIZED History of Rheumatoid Arthritis: Not Applicable 2. Height: 5 ft. 0 in. 152.4 cm. Weight: 135.0 lb. oz. 61.236 kg. Patient's BMI: 26.4 3. Vital Signs: BP: 123/80 Pulse: 93 Resp: 16 Temp: 02 Sat: 100 ECG Mon: 4. Pain Intensity: 0 today 5. Fall Risk: Dizziness: Y Needs help standing or walking: Y Fallen in the last 3 months: N Fall risk comments: \ 6. Patient on Blood Thinner: xarelto 7. History of Hypertension: Y 8. Opioid Therapy greater than 6 weeks: N Opiate Contract Signed: 9. Risk Assessment Tool Provided: 1-LOW 10. Functional Assessment Tool: 11. Recreational Drug Use: Never Drug Type: Tobacco Use: Never Smoker Tobacco Type: Amount or Packs/day: How Many Years: Alcohol Use: No Frequency: Quant:
== END | disposition home or self-care (01) ==
LOC: PAIN 06:59
PROVIDERS: ATTEND Anesthesiology Pain Medicine
DX: Z45.1 Encounter for adjustment and management of infusion pump (principal); G89.29 Other chronic pain; M54.5 Low back pain; M47.896 Other spondylosis, lumbar region; I10 Essential (primary) hypertension; Z98.890 Other specified postprocedural states; Z79.899 Other long term (current) drug therapy; Z79.01 Long term (current) use of anticoagulants; Z88.0 Allergy status to penicillin; Z88.8 Allergy status to other drugs, medicaments and biological substances

== ENCOUNTER → 2020-02-14 | Outpatient (CLI) | payer OTHER, BC | LOC: HYPER 14:12 | PROVIDERS: ATTEND Emergency Medicine | DX: E11.622 Type 2 diabetes mellitus with other skin ulcer (principal); L97.821 Non-pressure chronic ulcer of other part of left lower leg limited to breakdown of skin; S81.811D Laceration without foreign body, right lower leg, subsequent encounter; L84 Corns and callosities; R60.0 Localized edema; E11.42 Type 2 diabetes mellitus with diabetic polyneuropathy; E11.51 Type 2 diabetes mellitus with diabetic peripheral angiopathy without gangrene; E11.22 Type 2 diabetes mellitus with diabetic chronic kidney disease; I12.9 Hypertensive chronic kidney disease with stage 1 through stage 4 chronic kidney disease, or unspecified chronic kidney disease; N18.30 Chronic kidney disease, stage 3 unspecified; E66.09 Other obesity due to excess calories; E03.9 Hypothyroidism, unspecified; G47.30 Sleep apnea, unspecified; I87.2 Venous insufficiency (chronic) (peripheral); I27.20 Pulmonary hypertension, unspecified; I48.91 Unspecified atrial fibrillation; J44.9 Chronic obstructive pulmonary disease, unspecified; M81.0 Age-related osteoporosis without current pathological fracture; M10.9 Gout, unspecified; F41.9 Anxiety disorder, unspecified; Z85.09 Personal history of malignant neoplasm of other digestive organs; Z68.32 Body mass index [BMI] 32.0-32.9, adult; Z96.653 Presence of artificial knee joint, bilateral; Z85.3 Personal history of malignant neoplasm of breast; X58.XXXD Exposure to other specified factors, subsequent encounter ==

== ENCOUNTER → 2020-03-06 | Outpatient (CLI) | payer OTHER, BC | LOC: HYPER 13:14 | PROVIDERS: ATTEND Emergency Medicine | DX: E11.622 Type 2 diabetes mellitus with other skin ulcer (principal); L97.821 Non-pressure chronic ulcer of other part of left lower leg limited to breakdown of skin; S81.811D Laceration without foreign body, right lower leg, subsequent encounter; E11.51 Type 2 diabetes mellitus with diabetic peripheral angiopathy without gangrene; E11.22 Type 2 diabetes mellitus with diabetic chronic kidney disease; I12.9 Hypertensive chronic kidney disease with stage 1 through stage 4 chronic kidney disease, or unspecified chronic kidney disease; N18.30 Chronic kidney disease, stage 3 unspecified; E11.42 Type 2 diabetes mellitus with diabetic polyneuropathy; E66.09 Other obesity due to excess calories; E03.9 Hypothyroidism, unspecified; R60.0 Localized edema; G47.30 Sleep apnea, unspecified; I87.2 Venous insufficiency (chronic) (peripheral); I48.91 Unspecified atrial fibrillation; I27.20 Pulmonary hypertension, unspecified; J44.9 Chronic obstructive pulmonary disease, unspecified; M81.0 Age-related osteoporosis without current pathological fracture; M10.9 Gout, unspecified; F41.9 Anxiety disorder, unspecified; Z68.32 Body mass index [BMI] 32.0-32.9, adult; Z85.3 Personal history of malignant neoplasm of breast; Z96.653 Presence of artificial knee joint, bilateral; Z85.89 Personal history of malignant neoplasm of other organs and systems ==

== ENCOUNTER → 2020-04-06 | Outpatient (CLI) | payer OTHER, BC ==
[~2020-04-06] MED LIST changes: +METOLAZONE 2.52.5 M1 PO; +PROSCAR 5MG TABL5 MG PO
[2020-04-06 10:13] VITALS: BP 94/61
--- NOTE | 2020-04-06 10:35 | NUR ---
Pain Clinic Assessment: 1. History of Osteoarthritis: GENERALIZED History of Rheumatoid Arthritis: Not Applicable 2. Height: ft. in. cm. Weight: lb. oz. kg. Patient's BMI: 3. Vital Signs: BP: 94/61 Pulse: 85 Resp: 18 Temp: 02 Sat: 91 ECG Mon: 4. Pain Intensity: 7 TO 8 5. Fall Risk: Dizziness: Y Needs help standing or walking: Y Fallen in the last 3 months: N Fall risk comments: \ 6. Patient on Blood Thinner: xarelto 7. History of Hypertension: Y 8. Opioid Therapy greater than 6 weeks: Y Opiate Contract Signed: 9. Risk Assessment Tool Provided: 1-LOW 10. Functional Assessment Tool: 11. Recreational Drug Use: Never Drug Type: Tobacco Use: Never Smoker Tobacco Type: Amount or Packs/day: How Many Years: Alcohol Use: No Frequency: Quant:
== END ==
LOC: PAIN 06:50
PROVIDERS: ATTEND Anesthesiology Pain Medicine
DX: M19.011 Primary osteoarthritis, right shoulder (principal); M25.511 Pain in right shoulder; G89.29 Other chronic pain; M96.1 Postlaminectomy syndrome, not elsewhere classified; I11.0 Hypertensive heart disease with heart failure; I50.9 Heart failure, unspecified; I48.91 Unspecified atrial fibrillation; E03.9 Hypothyroidism, unspecified; Z98.890 Other specified postprocedural states; Z79.899 Other long term (current) drug therapy; Z79.01 Long term (current) use of anticoagulants; Z96.653 Presence of artificial knee joint, bilateral; Z88.0 Allergy status to penicillin; Z88.8 Allergy status to other drugs, medicaments and biological substances

== ENCOUNTER → 2020-04-11 | Outpatient (CLI) | payer OTHER, BC | LOC: SJCVCIMAG 04-10 09:55 | PROVIDERS: ATTEND Internal Medicine Cardiovascular Disease | DX: I08.8 Other rheumatic multiple valve diseases (principal); R94.31 Abnormal electrocardiogram [ECG] [EKG]; I45.10 Unspecified right bundle-branch block; I48.19 Other persistent atrial fibrillation; I27.20 Pulmonary hypertension, unspecified; G47.33 Obstructive sleep apnea (adult) (pediatric); I87.2 Venous insufficiency (chronic) (peripheral); I11.9 Hypertensive heart disease without heart failure; D68.59 Other primary thrombophilia; R60.9 Edema, unspecified; E03.9 Hypothyroidism, unspecified; Z90.49 Acquired absence of other specified parts of digestive tract; Z96.653 Presence of artificial knee joint, bilateral; Z79.899 Other long term (current) drug therapy; Z87.891 Personal history of nicotine dependence; Z82.49 Family history of ischemic heart disease and other diseases of the circulatory system ==

== ENCOUNTER → 2020-04-24 | Outpatient (CLI) | payer OTHER, BC ==
[~2020-04-24] VITALS: Ht 152.4 cm; Wt 62.2 kg
[2020-04-24 14:22] VITALS: BP 105/56
--- NOTE | 2020-04-24 14:42 | NUR ---
[facility] Clinic Assessment: 1. History of Osteoarthritis: GENERALIZED History of Rheumatoid Arthritis: Not Applicable 2. Height: 5 ft. 0 in. 152.4 cm. Weight: 137.2 lb. oz. 62.233 kg. Patient's BMI: 26.8 3. Vital Signs: BP: 105/56 Pulse: 70 Resp: 14 Temp: 02 Sat: 97 ECG Mon: 4. Pain Intensity: 9 5. Fall Risk: Dizziness: Y Needs help standing or walking: Y Fallen in the last 3 months: Y Fall risk comments: \ 6. Patient on Blood Thinner: xarelto 7. History of Hypertension: Y 8. Opioid Therapy greater than 6 weeks: Y Opiate Contract Signed: 9. Risk Assessment Tool Provided: 1-LOW 10. Functional Assessment Tool: 11. Recreational Drug Use: Never Drug Type: Tobacco Use: Never Smoker Tobacco Type: Amount or Packs/day: How Many Years: Alcohol Use: No Frequency: Quant:
== END | disposition home or self-care (01) ==
LOC: PAIN 06:54
PROVIDERS: ATTEND Anesthesiology Pain Medicine
DX: Z45.1 Encounter for adjustment and management of infusion pump (principal); G89.29 Other chronic pain; M96.1 Postlaminectomy syndrome, not elsewhere classified; I10 Essential (primary) hypertension; M19.90 Unspecified osteoarthritis, unspecified site; E03.9 Hypothyroidism, unspecified; I48.91 Unspecified atrial fibrillation; Z98.890 Other specified postprocedural states; Z79.899 Other long term (current) drug therapy; Z79.01 Long term (current) use of anticoagulants; Z88.0 Allergy status to penicillin; Z88.8 Allergy status to other drugs, medicaments and biological substances